=== PATIENT | male | born 1940 | race Caucasian/White ===

== ENCOUNTER → 2018-06-26 11:58 | Outpatient (CLI) | payer MEDICARE, BC, SELFPAY ==
[2018-06-26 14:02] LABS: Prostate Specific Ag, Diagnost 19.07 ng/mL (0.0-4.0)
== END ==
PROVIDERS: Visit Provider Urology
DX: R97.20 Elevated prostate specific antigen [PSA] (principal)
CPT/HCPCS: 36415; 84153

== ENCOUNTER → 2021-04-07 08:30 | Outpatient (CLI) | payer MEDICARE, BC, SELFPAY ==
[2021-04-07 10:29] LABS: Chloride 104 mmol/L (98-107); Sodium 139 mmol/L (136-145)
[2021-04-07 10:30] LABS: Potassium 5.5 mmoL/L (3.5-5.1)
[2021-04-07 10:32] LABS: Alanine Aminotransferase 11 U/L (12-78); Alkaline Phosphatase 71 U/L (38-126); Anion Gap 12.5 mEq/L (5-15); Aspartate Amino Transferase 31 U/L (17-59); Bilirubin,Total 1.1 mg/dl (0.2-1.3); Blood Urea Nitrogen 10 mg/dl (9-20); Carbon Dioxide 28 mmol/L (22.0-30.0); Cholesterol 169 mg/dl (140-200); Estimated Glomerular Filt Rate 81 ml/min (>60); GFR (African American) 98 ML/MIN (>60); Triglycerides 90 mg/dl (30-150); VLDL Cholesterol 18 mg/dL (0-40)
[2021-04-07 10:33] LABS: Albumin Level 4.4 g/dl (3.5-5.0); Albumin/Globulin Ratio 1.6 (1.1-1.8); Calcium 10.3 mg/dl (8.4-10.2); Chol/HDL Ratio 3.2 (1-3.5); Globulin 2.8 g/dL (1.3-3.2); Glucose 113 mg/dl (74-100); HDL Cholesterol 53 mg/dl (40-60); Total Protein,Serum 7.2 g/dl (6.3-8.2)
[2021-04-07 10:44] LABS: Direct LDL Cholesterol 94.51 mg/dL (100-129)
== END ==
PROVIDERS: Visit Provider Family Medicine
DX: I10 Essential (primary) hypertension (principal); E78.5 Hyperlipidemia, unspecified
CPT/HCPCS: 36415; 80053; 80061

== ENCOUNTER → 2022-01-26 12:51 | Outpatient (CLI) | payer MEDICARE, BC, SELFPAY ==
[2022-01-26 15:46] LABS: Prostate Specific Ag, Diagnost 6.56 ng/ml (0.0-4.0)
== END ==
PROVIDERS: PCP Family Medicine; Visit Provider Urology
DX: R97.20 Elevated prostate specific antigen [PSA] (principal)
CPT/HCPCS: 36415; 84153

== ENCOUNTER 2024-08-19 20:20 | Inpatient (IN) | payer MEDICARE, BC, SELFPAY ==
[2024-08-19 20:18] VITALS: BP 171/87; PULSE 61; RESP 14; TEMP 36.8; O2SAT 98; BMI 29.9
--- NOTE | 2024-08-19 20:19 | ED_ITS ---
<Statement entered by Matt Tinoco MD - 08/19/24 23:32> I was consulted by the FAVIAN, and we discussed the complexity of the problems being addressed. I approved the treatment and management plan for this patient's care in the emergency department, thus performing a substantive portion of the medical decision making. Matt Tinoco MD, AAMIR, FACEP Discharge Plan Disposition Patient Disposition: Admitted Condition: Good Prescriptions Prescriptions: No Action lisinopril 2.5 mg tablet 2.5 mg PO DAILY aspirin 81 mg tablet,chewable 81 mg PO DAILY metoprolol tartrate 25 mg tablet 25 mg PO BID simvastatin 20 mg tablet 20 mg PO DAILY lansoprazole 30 mg capsule,delayed release(DR/EC) 30 mg PO Referrals Follow up/Referrals: Kendall West MD [Primary Care Provider] - See instructions Clinical Impressions Clinical Impression: Fracture of hip Qualifiers: Encounter type: initial encounter Fracture type: closed Laterality: left Q ualified Code(s): S72.002A - Fracture of unspecified part of neck of left femur, initial encounter for closed fracture Print Language Print Language: O[place]i Discharge ED Provider: Matt Tinoco General Adult HPI General Chief complaint: Extremity Injury, Lower Stated complaint: left hip pain Time Seen by Provider: 08/19/24 20:22 History of Present Illness HPI narrative: Patient presents for evaluation after a fall. Patient states he was backing out of his kitchen and accidentally tripped falling backwards. He ended up in a sitting position however on the way down hit his brick hearth with his head on the left side posterior to the ear. He did not lose consciousness however when he fell he felt sharp pain at the left hip and was unable to get up from the ground. Ultimately EMS was called. He denies currently any headache nausea vomiting change in mental status or awareness blurred vision neck pain back pain. He denies any chest pain shortness of breath fever chills hemoptysis hematochezia melena nausea vomiting or diarrhea Related Data Home Medications ?Medication ?Instructions ?Recorded ?Confirmed aspirin 81 mg chewable tablet 81 mg PO DAILY 06/26/18 02/02/22 lisinopril 2.5 mg tablet 2.5 mg PO DAILY 06/26/18 02/02/22 metoprolol tartrate 25 mg tablet 25 mg PO BID 06/26/18 02/02/22 lansoprazole 30 mg capsule,delayed 30 mg PO 02/02/22 02/02/22 release simvastatin 20 mg tablet 20 mg PO DAILY 02/02/22 02/02/22 Allergies Allergy/AdvReac Type Severity Reaction Status Date / Time INGREDIENT: NO KNOWN - NO Allergy Unknown Uncoded 02/02/22 14:22 KNOWN DRUG ALLERGY [facility] Disclaimer: The information contained in this section may have been updated after the patient was seen, as this information can be updated by other users. Social History Smoking Status: Former smoker alcohol intake: never substance use type: denies use current occupational status: retired Travel in the last 8 weeks: None household members: spouse housing: house Have you lived/traveled outside [place] in past 30 days?: No Contact w/someone who lives/traveled outside US past 30 days?: No Exposure to someone with infectious disease in past 14 days?: No Do you have a fever (greater than 100.4 F or 38 C)?: No Have you tested positive for COVID-19: No Exposed to someone with COVID-19 in past 14 days?: No Do you have a sore throat?: No Do you have a cough?: No Do you have any weakness?: No Do you have any diarrhea?: No Are you experiencing any unusual bleeding?: No Do you have any muscle aches/pain?: No Do you have any abdominal pain?: No Are you experiencing loss of taste or smell?: No Other Medical History Have you received the Pneumonia Vaccine: Yes ROS Obtained: Yes Systems reviewed as appropriate & no additional complaints except as documented Physical Exam General General appearance: alert and in no apparent distress Head Head exam: atraumatic and normal inspection Eye Eye exam: Present normal appearance, PERRL and EOMI ENT ENT exam: Present normal exam, normal oropharynx and mucous membranes moist Neck Neck exam: Present normal inspection, full ROM and trachea midline; Absent lymphadenopathy Chest Chest inspection: Present normal inspection and symmetric chest wall rise Respiratory Respiratory exam: Present normal lung sounds bilaterally Cardiovascular Cardiovascular exam: Present regular rate Abdominal Exam Abdominal exam: Present soft and normal bowel sounds; Absent tenderness, guarding or rebound Extremities Exam Extremities exam: Present normal inspection and full ROM Neurological Exam Neurological exam: Present alert and oriented X3 Psychiatric Psychiatric exam: Present normal affect and normal mood Skin Skin exam: Present warm, dry and normal color Lymphatic Lymphatic Findings: no adenopathy Medical Decision Making Medical Records Medical records reviewed: Yes I reviewed the patient's medical records. Screening: Per USPSTF and CDC recommendations, given the prevalence of disease in our region, it is our hospital?s policy to screen for HIV and viral Hepatitis for all patients aged 18 and over and those with ongoing risk factors. Rony Inquiry Pt receiving controlled substance: No Vital Signs: 08/19/24 20:18 08/19/24 20:22 Temperature 98.3 F Temperature Source Oral Pulse Rate [Left Dorsalis Pedis] 62 Pulse Rate [Left Radial] 61 Respiratory Rate 14 Blood Pressure [Right Arm] 171/87 H Blood Pressure Mean [Right Arm] 115 Blood Pressure Position [Right Arm] Supine 02 Sat by Pulse Oximetry 98 Oxygen Delivery Method Room Air Lab Data Lab results reviewed: Yes I reviewed the patient's lab results. Lab Results 08/19/24 20:33: WBC 9.6, RBC 4.34 L, Hgb 12.7 L, Hct 38.6 L, MCV 88.9, MCH 29.3, MCHC 32.9, RDW 12.7, Plt Count 371, MPV 9.1, Neut % (Auto) 66.4, Lymph % (Auto) 23.8, [place] % (Auto) 5.4, Eos % (Auto) 3.4, Baso % (Auto) 0.6, Neut # (Auto) 6.4, Lymph # (Auto) 2.3, [place] # (Auto) 0.5, Eos # (Auto) 0.3, Baso # (Auto) 0.1, PT 10.9, INR 0.97, Sodium 140, Potassium 4.1, Chloride 109 H, Carbon Dioxide 23, Anion Gap 12.1, BUN 14, Creatinine 0.90, Estimated Creat Clear 65, Estimated GFR 81, Est GFR ( Amer) 98, Glucose 113 H, Calcium 8.6, Total Bilirubin 0.5, AST 28, ALT 20, Alkaline Phosphatase 108, Total Protein 6.8, Albumin 3.6, Globulin 3.2, Albumin/Globulin Ratio 1.1 08/19/24 20:33 08/19/24 20:33 Orders (Tests/Meds): ED MEDICATIONS Generic Name Dose Route Start Last Admin Trade Name Freq PRN Reason Stop Dose Admin Acetaminophen 650 mg 08/19/24 21:40 Acetaminophen 325mg Tab PO 09/18/24 21:39 Q4HP PRN Fever or Mild Pain (1-3) Discontinued Medications Generic Name Dose Route Start Last Admin Trade Name Freq PRN Reason Stop Dose Admin Acetaminophen 1,000 mg 08/19/24 20:20 08/19/24 20:59 Acetaminophen 500mg Tab PO 08/19/24 20:21 1,000 mg ONCE ONE Administration Oxycodone HCl 5 mg 08/19/24 21:23 08/19/24 21:38 Oxycodone 5mg Immediate Release Tablet PO 08/19/24 21:24 5 mg ONCE ONE Administration ORDERS Category Date Time Status CT bony pelvis Stat Cat Scan 08/19/24 20:[address] cervical spine wo con Stat Cat Scan 08/19/24 20:[address] head/brain wo con Stat Cat Scan 08/19/24 20:21 Completed Consult to Case Management [CONS] Routine Cons 08/19/24 21:40 Active Femur XR left 2 views [XR femur LT 2V] Stat Exams 08/19/24 20:20 Completed XR chest portable Stat Exams 08/19/24 20:20 Completed Basic Metabolic Panel [facility] 08/20/24 06:00 Ordered Basic Metabolic Panel [facility] 08/21/24 06:00 Ordered Basic Metabolic Panel [facility] 08/22/24 06:00 Ordered Basic Metabolic Panel [facility] 08/23/24 06:00 Ordered Basic Metabolic Panel [facility] 08/24/24 06:00 Ordered CBC w/Auto Diff [Complete Blood Count Auto Diff] Stat Lab 08/19/24 20:33 Completed CMP [Comprehensive Metabolic Panel] Stat Lab 08/19/24 20:33 Completed Complete Blood Count Auto Diff [facility] 08/20/24 06:00 Ordered Complete Blood Count Auto Diff [facility] 08/21/24 06:00 Ordered Complete Blood Count Auto Diff [facility] 08/22/24 06:00 Ordered Complete Blood Count Auto Diff [facility] 08/23/24 06:00 Ordered Complete Blood Count Auto Diff [facility] 08/24/24 06:00 Ordered INR [Prothrombin Time INR] Stat Lab 08/19/24 20:33 Completed Magnesium [facility] 08/20/24 06:00 Ordered Phosphorous [facility] 08/20/24 06:00 Ordered Medical Decision Narrative: In summary patient is a 83-year-old male who presents to the emergency department for evaluation of accidental ground-level fall. Patient is currently hemodynamically stable with a blood pressure of 171/87 pulse 61 respiratory rate is 14 O2 sats 98% on room air normal sinus rhythm on the bedside monitor upon arrival, afebrile at 98.3. Physical exam is remarkable for an abrasion at the mastoid behind the left ear but no palpable bony deformity. External auditory canals normal tympanic is normal with no fluid or blood, patient has no cervical spine tenderness, however he remains in a c-collar. Pupils equal round reactive to light [place] Coma Score 15 patient's awake alert and oriented person place and circumstance cranial nerves II through XII intact grossly to exam presents clear to go bilaterally to the base without a tissue sounds abdomen soft nontender no rebound or guarding or rigidity. Patient has an externally rotated and foreshortened left lower extremity however he is neurovascularly intact distally with palpable pulses that are marked with an ink pen. I did not perform range of testing due to his obvious injury. The remainder of his unaffected labs are intact grossly to exam with full range of motion. Differential diagnosis includes skull fracture versus C-spine injury versus intracranial bleed versus pelvic fracture versus femur fracture etc. Initial workup will be conducted with CT scans of the head neck and pelvis without contrast and plain film of the chest and femur. Patient is only on aspirin and no blood thinners.. Initial interventions include Tylenol and oxycodone for now. Initial workup reviewed by me and my informal interpretation of his imaging shows only the a comminuted left femur fracture as well as a pubic rami fracture on the left prior to radiology read. Hematologic labs are nonactionable. I had indirect discussion with orthopedic surgery and he is agreeable for consultation and operative repair likely on Saturday. Given that I had a direct discussion with hospital medicine that he has been accepted for admission and ongoing management care. Critical Care Critical Care Time Critical Care Time: No
--- NOTE | 2024-08-19 20:20 | XR_ITS ---
PROCEDURE INFORMATION: Exam: XR Left Femur Exam date and time: 08/19/2024 8:35 PM Age: 83 years old Clinical indication: Injury or trauma; Fall; Blunt trauma; Hip; Left; Additional info: Fall left hip injury TECHNIQUE: Imaging protocol: Radiologic exam of the left femur. Views: 2 views. COMPARISON: No relevant prior studies available. FINDINGS: Bones/joints: Acute comminuted fracture of the proximal femoral shaft with extension to the lesser trochanter. Medial displacement of the lesser trochanter fracture fragment. Significant impaction. Mild varus angulation. Soft tissues: Unremarkable. Vasculature: Vascular calcifications. IMPRESSION: Acute comminuted and impacted fracture of the left proximal femur with extension to the lesser trochanter.
--- NOTE | 2024-08-19 20:20 | XR_ITS ---
PROCEDURE INFORMATION: Exam: XR Chest Exam date and time: 08/19/2024 8:35 PM Age: 83 years old Clinical indication: Injury or trauma; Fall; Blunt trauma (contusions or hematomas) TECHNIQUE: Imaging protocol: Radiologic exam of the chest. Views: 1 view. COMPARISON: No relevant prior studies available. FINDINGS: Lungs: No consolidation. Basal reticulation. Pleural spaces: No pleural effusion. No pneumothorax. Heart/Mediastinum: Normal cardiac silhouette. Deviation of the azygoesophageal recess. Bones/joints: No acute osseous abnormality. IMPRESSION: Deviation of the azygoesophageal recess suspicious for moderate-large hiatal hernia although mediastinal mass not excluded. Recommend confirmation with nonemergent CT chest.
--- NOTE | 2024-08-19 20:21 | CT_ITS ---
PROCEDURE INFORMATION: Exam: CT Head Without Contrast Exam date and time: 08/19/2024 8:43 PM Age: 83 years old Clinical indication: Injury or trauma; Fall; Blunt trauma (contusions or hematomas); Without loss of consciousness; Additional info: Fall hit left head no loc TECHNIQUE: Imaging protocol: Computed tomography of the head without contrast. Radiation optimization: All CT scans at this facility use at least one of these dose optimization techniques: automated exposure control; mA and/or kV adjustment per patient size (includes targeted exams where dose is matched to clinical indication); or iterative reconstruction. COMPARISON: CT HEAD/BRAIN WO CON 08/19/2024 8:43 PM FINDINGS: Brain: No hemorrhage. Underlying periventricular white matter changes and parenchymal cortical volume loss. No mass effect. Cerebral ventricles: No ventriculomegaly. Paranasal sinuses: Visualized sinuses are unremarkable. No fluid levels. Mastoid air cells: Visualized mastoid air cells are well aerated. Bones: Unremarkable. No acute fracture. Soft tissues: Unremarkable. IMPRESSION: No acute intracranial abnormality.
--- NOTE | 2024-08-19 20:21 | CT_ITS ---
PROCEDURE INFORMATION: Exam: CT Cervical Spine Without Contrast Exam date and time: 08/19/2024 8:45 PM Age: 83 years old Clinical indication: Injury or trauma; Fall; Blunt trauma; Additional info: Fall hit left head no loc TECHNIQUE: Imaging protocol: Computed tomography of the cervical spine without contrast. Radiation optimization: All CT scans at this facility use at least one of these dose optimization techniques: automated exposure control; mA and/or kV adjustment per patient size (includes targeted exams where dose is matched to clinical indication); or iterative reconstruction. COMPARISON: CT HEAD/BRAIN WO CON 08/19/2024 8:43 PM FINDINGS: Bones: No acute fracture. Likely chronic C4 on C5 mild anterolisthesis. Multilevel degenerative disc and joint space changes. Vertebral body heights grossly preserved. Osteopenia. Lungs: Unremarkable. Soft tissues: Unremarkable. IMPRESSION: No acute findings.
--- NOTE | 2024-08-19 20:21 | CT_ITS ---
PROCEDURE INFORMATION: Exam: CT Pelvis Without Contrast, Skeleton Exam date and time: 08/19/2024 8:48 PM Age: 83 years old Clinical indication: Injury or trauma; Fall; Blunt trauma (contusions or hematomas); Left; Hip; Additional info: Fall left hip injury TECHNIQUE: Imaging protocol: Computed tomography of the pelvis without contrast. Exam focused on the skeleton. Radiation optimization: All CT scans at this facility use at least one of these dose optimization techniques: automated exposure control; mA and/or kV adjustment per patient size (includes targeted exams where dose is matched to clinical indication); or iterative reconstruction. COMPARISON: CR XR FEMUR LT 2V 08/19/2024 8:35 PM FINDINGS: Intestine: Colonic diverticulosis. Intraperitoneal space: Partially visualized large cyst in the left hemiabdomen measuring 7.3 cm. Vasculature: Prominent atherosclerotic calcifications in the pelvis.. Reproductive: Prostatic calcifications. Bones/joints: Comminuted fracture of the left proximal femur with a butterfly fracture involving the lesser trochanter which is medially displaced. Suspect distal femur is rotated. Significant fracture impaction with approximately 4.5 cm of fracture overlap. Acute minimally displaced fracture left inferior pubic ramus. Soft tissues: Thickening and edema of the left iliacus muscle near the hip.. IMPRESSION: 1. Comminuted and impacted fracture of the left proximal femoral shaft with extension to the lesser trochanter. 2. Acute minimally displaced fracture of the left inferior pubic ramus. 3. Partially visualized large cyst in the left hemiabdomen measuring 7.3 cm, presumably arising from the left lower renal pole. COMMENTS: Consistent with the [employer]'s Incidental Findings Committee white paper (J Am Jesus Radiol 2018): Any incidental renal lesion less than 1 cm or classified as too small to characterize, or any incidental cystic renal lesion characterized as simple-appearing, is likely benign. No follow-up imaging is recommended for these lesions per consensus recommendations based on imaging criteria.
[2024-08-19 20:22] VITALS: PULSE 62
--- NOTE | 2024-08-19 20:34 | PC.NURSE ---
blood collected and sent to the lab, pt taken to radiology at this time.
[2024-08-19 20:39] LABS: Basophils # 0.1 K/mm3 (0-0.2); Basophils % 0.6 % (0.1-2.0); Eosinophils # 0.3 K/mm3 (0.0-0.4); Eosinophils % 3.4 % (0.1-12.0); Hematocrit 38.6 % (42.0-52.0); Hemoglobin 12.7 g/dL (14.1-18.0); Lymphocytes # 2.3 K/mm3 (0.7-4.5); Lymphocytes % 23.8 % (10-50); Mean Corpuscular HGB Conc 32.9 g/dL (31.8-35.4); Mean Corpuscular Hemoglobin 29.3 pg (27.0-31.2); Mean Corpuscular Volume 88.9 fl (80-94); Mean Platelet Volume 9.1 fl (7.4-10.4); Monocytes # 0.5 K/mm3 (0.1-1.0); Monocytes % 5.4 % (1.7-9.3); Neutrophils # 6.4 K/mm3 (1.8-7.8); Neutrophils % 66.4 % (37.0-80.0); Nucleated Red Blood Cells # 0 10^3/uL; Nucleated Red Blood Cells % 0 %; Platelet Count 371 K/mm3 (142-424); Red Blood Count 4.34 M/mm3 (4.60-6.20); Red Cell Distribution Width 12.7 % (11.5-17.5); Red Cell Distribution Width-SD 41.5 fL; White Blood Count 9.6 K/mm3 (4.8-10.8)
[2024-08-19 20:46] LABS: Albumin Level 3.6 g/dl (3.5-5.0); Chloride 109 mmol/L (98-107); Potassium 4.1 mmoL/L (3.5-5.1); Sodium 140 mmol/L (136-145)
[2024-08-19 20:48] LABS: Blood Urea Nitrogen 14 mg/dl (9-20); Creatinine Clearance Estimated 65 mL/min (50-200); Estimated Glomerular Filt Rate 81 ml/min (>60); GFR (African American) 98 ML/MIN (>60)
[2024-08-19 20:49] LABS: Alanine Aminotransferase 20 U/L (12-78); Albumin/Globulin Ratio 1.1 (1.1-1.8); Alkaline Phosphatase 108 U/L (38-126); Anion Gap 12.1 mEq/L (5-15); Aspartate Amino Transferase 28 U/L (17-59); Bilirubin,Total 0.5 mg/dl (0.2-1.3); Calcium 8.6 mg/dl (8.4-10.2); Carbon Dioxide 23 mmol/L (22.0-30.0); Globulin 3.2 g/dL (1.3-3.2); Glucose 113 mg/dl (74-100); Total Protein,Serum 6.8 g/dl (6.3-8.2)
[2024-08-19 20:53] LABS: INR 0.97 (0.9-1.1); Prothrombin Time 10.9 seconds (10.1-12.5)
[2024-08-19] MEDS: ACETAMINOPHEN 500MG TAB 1000 MG PO (20:59)
[2024-08-19] MEDS: OXYCODONE 5MG IMMEDIATE RELEASE TABLET 5 MG PO (21:38)
--- NOTE | 2024-08-19 21:46 | P.HP_ITS ---
<Statement entered by Frank Quinones MD - 08/20/24 15:31> Rounded on patient after nurse practitioner. Personally examined and interviewed patient. Agree with exam findings and care plan as documented. History of Present Illness *Admission Date: 08/19/24 *Reason for visit:: Fall *History of present illness: An 83-year-old male past medical history of hypertension, BPH presents to the emergency department for evaluation of an accidental ground-level fall. He rep orts the fall occurred today, resulting in left lower extremity pain and inability to ambulate. He is on aspirin but no anticoagulants. The history was obtained through interactive discussion with the patient, who is deemed reliable. His only anticoagulation is 81 mg aspirin daily. On examination, the patient is hemodynamically stable with blood pressure 171/87, pulse 61, respiratory rate 14, oxygen saturation 98% on room air, afebrile (98.3), and in normal sinus rhythm on the bedside monitor. Physical exam reveals an abrasion behind the left mastoid without bony deformity, normal external auditory canals and tympanic membranes, no cervical spine tenderness, pupils equal and reactive, Bertrand Coma Scale 15, awake, alert, oriented, with intact cranial nerves II?XII. Lungs are clear bilaterally, abdomen soft and nontender without rebound, guarding, or rigidity. The left lower extremity is externally rotated and foreshortened, neurovascularly intact distally with palpable pulses marked by ink pen; range of motion testing was avoided due to obvious injury. The remainder of the exam shows intact limbs with full range of motion. Diagnostic workup includes labs, CT scans of head, neck, and pelvis without contrast, and plain films of chest and femur. Labs show mild anemia (hemoglobin 12.7, hematocrit 38.6), normal WBC (9.6), creatinine (0.9), GFR (81), normal electrolytes (sodium 140, potassium 4.1), slightly elevated glucose (113), and normal PT/INR (0.97). CT head and neck are negative for acute processes. CT pelvis and femur X-ray radiology read confirms a comminuted, impacted left proximal femoral shaft fracture extending to the lesser trochanter, a minimally displaced left inferior pubic rami fracture, and a 7.3 cm cyst in the left hemiabdomen, likely from the left lower renal pole. Chest X-ray is unremarkable. CT head and neck shows no acute process Treatments implemented in the emergency department include acetaminophen (Tylenol, dose not specified, assumed 650 mg oral) and oxycodone (dose not specified, assumed 5 mg oral) for pain. The patient remains in a C-collar pending clearance. Orthopedic surgery was consulted and agreed to operative repair, likely Saturday. Hospital medicine agrees to accept the patient for admission in stable condition for ongoing management. [facility] Disclaimer: The information contained in this section may have been updated after the patient was seen, as this information can be updated by other users. Social History Smoking Status: Former smoker alcohol intake: never substance use type: denies use current occupational status: retired Travel in the last 8 weeks: None household members: spouse housing: house Have you lived/traveled outside US in past 30 days?: No Contact w/someone who lives/traveled outside US past 30 days?: No Exposure to someone with infectious disease in past 14 days?: No Do you have a fever (greater than 100.4 F or 38 C)?: No Have you tested positive for COVID-19: No Exposed to someone with COVID-19 in past 14 days?: No Do you have a sore throat?: No Do you have a cough?: No Do you have any weakness?: No Do you have any diarrhea?: No Are you experiencing any unusual bleeding?: No Do you have any muscle aches/pain?: No Do you have any abdominal pain?: No Are you experiencing loss of taste or smell?: No Other Medical History Have you received the Pneumonia Vaccine: Yes Review of Systems Review of Systems Review of systems (narrative): 13 point review of system negative except as listed in HPI Meds Home Medications and Allergies Home Medications ?Medication ?Instructions ?Recorded ?Confirmed ?Type aspirin 81 mg chewable tablet 81 mg PO DAILY 06/26/18 08/20/24 History metoprolol tartrate 25 mg tablet 25 mg PO DAILY 06/26/18 08/20/24 History lansoprazole 30 mg capsule,delayed 30 mg PO DAILY 02/02/22 08/20/24 History release New Prescriptions to Start Prescriptions: Allergies Allergy/AdvReac Type Severity Reaction Status Date / Time INGREDIENT: NO KNOWN - NO Allergy Unknown Uncoded 02/02/22 14:22 KNOWN DRUG ALLERGY Exam Data for Last 24 hours Vital signs and Labs for Last 24 Hours: Temp Pulse Resp BP Pulse Ox O2 Del Method 98.3 F 62 14 171/87 H 98 Room Air 08/19/24 20:18 08/19/24 20:22 08/19/24 20:18 08/19/24 20:18 08/19/24 20:18 08/19/24 20:18 Laboratory Results - last 24 hr 08/19/24 20:33: WBC 9.6, RBC 4.34 L, Hgb 12.7 L, Hct 38.6 L, MCV 88.9, MCH 29.3, MCHC 32.9, RDW 12.7, Plt Count 371, MPV 9.1, Neut % (Auto) 66.4, Lymph % (Auto) 23.8, [place] % (Auto) 5.4, Eos % (Auto) 3.4, Baso % (Auto) 0.6, Neut # (Auto) 6.4, Lymph # (Auto) 2.3, [place] # (Auto) 0.5, Eos # (Auto) 0.3, Baso # (Auto) 0.1, PT 10.9, INR 0.97, Sodium 140, Potassium 4.1, Chloride 109 H, Carbon Dioxide 23, Anion Gap 12.1, BUN 14, Creatinine 0.90, Estimated Creat Clear 65, Estimated GFR 81, Est GFR ( Amer) 98, Glucose 113 H, Calcium 8.6, Total Bilirubin 0.5, AST 28, ALT 20, Alkaline Phosphatase 108, Total Protein 6.8, Albumin 3.6, Globulin 3.2, Albumin/Globulin Ratio 1.1 I & O for Last 24 hours: Intake & Output 08/16/24 08/17/24 08/18/24 08/19/24 23:59 23:59 23:59 23:59 Weight 81.647 kg Constitutional Constitutional: no acute distress *Routine HEENT Exam Head: Present normocephalic Eye: Present EOMI and PERRL ENT: Present mucous membranes moist *Routine Neck Exam Neck: Present supple; Absent lymphadenopathy *Routine Respiratory Exam Respiratory: Present CTA bilaterally *Routine Cardiovascular Exam Cardiovascular: Present RRR *Routine Abdominal Exam Abdominal: Present soft and normoactive bowel sounds; Absent tenderness *Routine Rectal Exam Rectal:: deferred *Routine Genitalia Exam Genitalia:: deferred *Routine Extremities Exam Extremities: Absent cyanosis, clubbing or edema *Routine Skin Exam Skin: Present warm; Absent rash *Routine Neurological Exam Neurological: Present alert and oriented X3 Assessment and Plan *Assessment and plan (1) Fracture of hip: Status: Acute Qualifiers: Encounter type: initial encounter Fracture type: closed Laterality: left Qualified Code(s): S72.002A - Fracture of unspecified part of neck of left femur, initial encounter for closed fracture Category: Medical Code(s): S72.009A - Fracture of unspecified part of neck of unspecified femur, initial encounter for closed fracture (2) Elevated PSA: Status: Acute Category: Medical Code(s): R97.20 - Elevated prostate specific antigen [PSA] Plan * Comminuted Left Proximal Femur Fracture: Comminuted, impacted left femoral shaft fracture extending to lesser trochanter, with externally rotated, foreshortened left leg, neurovascularly intact, in an 83-year-old male post- fall. * Continue oxycodone 5 mg oral every 4?6 hours as needed for moderate pain; add acetaminophen 650 mg oral every 6 hours scheduled x 4 doses. * Complains of significant pain and inability to stay immobilized despite medication. 2 mg IV morphine every 4 as needed for severe pain 500 mg Robaxin 3 times daily added. De-escalate IV morphine as able * Maintain immobilization with left leg splint; avoid weight-bearing until orthopedic evaluation. * Consult orthopedic surgery for operative repair (planned Saturday); obtain preoperative clearance (e.g., EKG, chest X-ray reviewed). * Monitor neurovascular status (pulses, sensation); notify orthopedics if compromised. * Admit to medical-surgical floor for pain management and surgical planning. * Recheck hemoglobin in 12 hours to monitor for occult bleeding (current 12.7). * Left Inferior Pubic Rami Fracture: Minimally displaced left pubic rami fracture, contributing to pain and immobility, no surgical intervention typically required. * Manage pain as above with oxycodone and acetaminophen. * Encourage [id number] on left side; consult physical therapy for mobility assistance post-orthopedic repair. * Monitor for worsening pelvic pain or new symptoms every 4 hours; repeat pe lvic X-ray in 24 hours if pain escalates. * Coordinate with orthopedics for outpatient follow-up to assess healing (4?6 weeks). * Left Renal Cyst (Incidental): 7.3 cm cyst, likely arising from left lower renal pole, asymptomatic, found on CT pelvis, in a patient with normal renal function (creatinine 0.9, GFR 81). * Consult urology for outpatient evaluation of cyst (e.g., ultrasound or MRI to assess complexity, Bosniak classification). * Monitor for new flank pain, hematuria, or fever every 8 hours; order urinalysis if symptoms arise. * No immediate intervention unless cyst causes obstruction or infection; document for follow-up. * Mild Anemia: Hemoglobin 12.7, hematocrit 38.6, likely chronic or post- traumatic, no active bleeding noted, in a patient on aspirin. * Recheck CBC in 24 hours to monitor anemia; consult hematology if hemoglobin falls below 10.0 or symptoms (fatigue, dyspnea) worsen. * Continue aspirin ( 81 mg daily) unless active bleeding develops; monitor for melena or hematemesis every 8 hours. * Order iron studies and ferritin if anemia progresses to assess for deficiency vs. chronic disease. * Hypertension: BP 171/87, likely reactive to pain or chronic, no end-organ damage (negative head CT, normal EKG). * Monitor BP every 2 hours, targeting <140/90; hold home antihypertensives (not specified) until pain controlled and BP <150 systolic to avoid hypotension post-surgery. * Verify home antihypertensive regimen metoprolol * Recheck electrolytes in 24 hours (sodium 140, potassium 4.1) to monitor for pain-related stress effects. Additional Orders: * Admit to medical-surgical floor for fracture management and orthopedic consultation. * Consult physical therapy for mobility planning post-surgery. * Educate patient/family on fracture care, pain management, and surgical plan.
--- NOTE | 2024-08-19 21:55 | PC.NURSE ---
report called to Elroy Elizalde RN
--- NOTE | 2024-08-19 22:10 | PC.NURSE ---
valium pulled per ramón medic 2.5mg given with the rest wittnessed waste
[2024-08-19 22:11] VITALS: BP 184/118; PULSE 78; RESP 99; TEMP 37
[2024-08-19] MEDS: diazePAM 10MG/2ML SYRINGE 2.5 MG IV (22:12)
--- NOTE | 2024-08-19 22:25 | PC.NURSE ---
Patient arrived to floor via stretcher from ED at 22:16.
[2024-08-19 22:36] VITALS: BP 143/75; PULSE 66; RESP 20; TEMP 36.7; O2SAT 95; BMI 28.8
[2024-08-19] MEDS: MORPHINE 2MG/ML SYRINGE 2 MG IV (23:08)
[2024-08-19] MEDS: LACTATED RINGERS 1000ML 1,000 ML 50 ML IV (23:16)
[2024-08-19 23:42] VITALS: BP 145/65; PULSE 61; RESP 18; TEMP 36.7; O2SAT 96
[2024-08-20] MEDS: diphenhydrAMINE 50MG CAPSULE 50 MG PO (01:49)
[2024-08-20] MEDS: METHOCARBAMOL 500MG TABLET 500 MG PO ×4 (01:49→21:02)
[2024-08-20] MEDS: ACETAMINOPHEN 325MG TAB 650 MG PO ×6 (01:49→21:02)
[2024-08-20 04:00] VITALS: BP 154/86; PULSE 64; RESP 17; TEMP 36.5; O2SAT 97; BMI 28.8
[2024-08-20] MEDS: MORPHINE 2MG/ML SYRINGE 2 MG IV ×4 (04:48→21:11)
[2024-08-20 07:42] LABS: Basophils % 0.4 % (0.1-2.0); Eosinophils % 0.1 % (0.1-12.0); Hemoglobin 12.1 g/dL (14.1-18.0); Lymphocytes # 1.3 K/mm3 (0.7-4.5); Lymphocytes % 15.7 % (10-50); Mean Corpuscular HGB Conc 33.6 g/dL (31.8-35.4); Mean Corpuscular Hemoglobin 30.2 pg (27.0-31.2); Mean Corpuscular Volume 89.8 fl (80-94); Mean Platelet Volume 9.3 fl (7.4-10.4); Monocytes # 0.6 K/mm3 (0.1-1.0); Monocytes % 6.7 % (1.7-9.3); Neutrophils # 6.5 K/mm3 (1.8-7.8); Neutrophils % 76.7 % (37.0-80.0); Nucleated Red Blood Cells # 0 10^3/uL; Nucleated Red Blood Cells % 0 %; Platelet Count 347 K/mm3 (142-424); Red Blood Count 4.01 M/mm3 (4.60-6.20); Red Cell Distribution Width 12.8 % (11.5-17.5); Red Cell Distribution Width-SD 42.2 fL; White Blood Count 8.4 K/mm3 (4.8-10.8)
[2024-08-20 07:52] LABS: Chloride 109 mmol/L (98-107); Sodium 141 mmol/L (136-145)
[2024-08-20 07:53] LABS: Potassium 4.4 mmoL/L (3.5-5.1)
[2024-08-20 07:55] LABS: Anion Gap 10.4 mEq/L (5-15); Blood Urea Nitrogen 15 mg/dl (9-20); Carbon Dioxide 26 mmol/L (22.0-30.0); Creatinine Clearance Estimated 62 mL/min (50-200); Estimated Glomerular Filt Rate 81 ml/min (>60); GFR (African American) 98 ML/MIN (>60)
[2024-08-20 07:56] LABS: Calcium 8.4 mg/dl (8.4-10.2); Glucose 116 mg/dl (74-100); Magnesium 1.9 mg/dl (1.6-2.3)
[2024-08-20 08:00] VITALS: BP 139/77; PULSE 57; RESP 16; TEMP 36.5; O2SAT 96
--- NOTE | 2024-08-20 08:03 | HMH.PHAINT1 ---
Pharmacy Intervention Comments: MEDICATION RECONCILIATION COMPLETED ON PATIENT USING EXTERNAL FILL HISTORY FROM PHARMACY. -MARY GRACE CHA, JACLYND
[2024-08-20] MEDS: ASPIRIN 81MG CHEWABLE TABLET 81 MG PO (08:13)
--- NOTE | 2024-08-20 12:12 | P.CONS_ITS ---
History of Present Illness *Admission Date: 08/19/24 *History of present illness: An 83-year-old male past medical history of hypertension, BPH presents to the emergency department for evaluation of an accidental ground-level fall. He reports the fall occurred today, resulting in left lower extremity pain and inability to ambulate. He is on aspirin but no anticoagulants. The history was obtained through interactive discussion with the patient, who is deemed reliable. His only anticoagulation is 81 mg aspirin daily. Patient suffered a left-sided intertrochanteric hip fracture with reverse obliquity orthopedics was consulted regarding definitive treatment options.. [facility] Disclaimer: The information contained in this section may have been updated after the patient was seen, as this information can be updated by other users. Medical History (Updated 08/20/24 @ 12:17 by Bennie Murcia DO) Hypertension Social History Smoking Status: Former smoker alcohol intake: never substance use type: denies use current occupational status: retired Travel in the last 8 weeks: None household members: spouse housing: house Have you lived/traveled outside US in past 30 days?: No Contact w/someone who lives/traveled outside US past 30 days?: No Exposure to someone with infectious disease in past 14 days?: No Do you have a fever (greater than 100.4 F or 38 C)?: No Have you tested positive for COVID-19: No Exposed to someone with COVID-19 in past 14 days?: No Do you have a sore throat?: No Do you have a cough?: No Do you have any weakness?: No Do you have any diarrhea?: No Are you experiencing any unusual bleeding?: No Do you have any muscle aches/pain?: No Do you have any abdominal pain?: No Are you experiencing loss of taste or smell?: No Meds Home Medications and Allergies Home Medications ?Medication ?Instructions ?Recorded ?Confirmed ?Type aspirin 81 mg chewable tablet 81 mg PO DAILY 06/26/18 08/20/24 History metoprolol tartrate 25 mg tablet 25 mg PO DAILY 06/26/18 08/20/24 History lansoprazole 30 mg capsule,delayed 30 mg PO DAILY 02/02/22 08/20/24 History release New Prescriptions to Start Prescriptions: Allergies Allergy/AdvReac Type Severity Reaction Status Date / Time No Known Allergies Allergy Unverified 08/20/24 07:18 Ortho Exam (Inpt) Vital signs and Labs for Last 24 Hours: Temp Pulse Resp BP Pulse Ox O2 Del Method 97.7 F 57 L 16 139/77 96 Room Air 08/20/24 08:00 08/20/24 08:00 08/20/24 08:00 08/20/24 08:00 08/20/24 08:00 08/20/24 11:00 Laboratory Results - last 24 hr 08/19/24 20:33: WBC 9.6, RBC 4.34 L, Hgb 12.7 L, Hct 38.6 L, MCV 88.9, MCH 29.3, MCHC 32.9, RDW 12.7, Plt Count 371, MPV 9.1, Neut % (Auto) 66.4, Lymph % (Auto) 23.8, [place] % (Auto) 5.4, Eos % (Auto) 3.4, Baso % (Auto) 0.6, Neut # (Auto) 6.4, Lymph # (Auto) 2.3, [place] # (Auto) 0.5, Eos # (Auto) 0.3, Baso # (Auto) 0.1, PT 10.9, INR 0.97, Sodium 140, Potassium 4.1, Chloride 109 H, Carbon Dioxide 23, Anion Gap 12.1, BUN 14, Creatinine 0.90, Estimated Creat Clear 65, Estimated GFR 81, Est GFR ( Amer) 98, Glucose 113 H, Calcium 8.6, Total Bilirubin 0.5, AST 28, ALT 20, Alkaline Phosphatase 108, Total Protein 6.8, Albumin 3.6, Globulin 3.2, Albumin/Globulin Ratio 1.1 08/20/24 07:23: WBC 8.4, RBC 4.01 L, Hgb 12.1 L, Hct 36.0 L, MCV 89.8, MCH 30.2, MCHC 33.6, RDW 12.8, Plt Count 347, MPV 9.3, Neut % (Auto) 76.7, Lymph % (Auto) 15.7, [place] % (Auto) 6.7, Eos % (Auto) 0.1, Baso % (Auto) 0.4, Neut # (Auto) 6.5, Lymph # (Auto) 1.3, [place] # (Auto) 0.6, Eos # (Auto) 0.0, Baso # (Auto) 0.0, Sodium 141, Potassium 4.4, Chloride 109 H, Carbon Dioxide 26, Anion Gap 10.4, BUN 15, Creatinine 0.90, Estimated Creat Clear 62, Estimated GFR 81, Est GFR ( Amer) 98, Glucose 116 H, Calcium 8.4, Phosphorus 3.0, Magnesium 1.9 I & O for Labs for Last 24 Hours: Intake & Output 08/17/24 08/18/24 08/19/24 08/20/24 23:59 23:59 23:59 23:59 Intake Total 485 / 485 Output Total 0 / 0 Balance 0 / 0 485 / 485 Weight 173 lb 4.8 oz 173 lb 4.8 oz Head: Present normocephalic and atraumatic Additional findings:: Left hip: Shortened mildly externally rotated tenderness with any attempt to move the hip. X-rays left hip show intertrochanteric hip fracture with reverse obliquity unstable fracture pattern Results Labs 08/20/24 07:23 08/20/24 07:23 Labs: Abnormal lab results 08/19/24 08/20/24 Range/Units 20:33 07:23 RBC 4.34 L 4.01 L (4.60-6.20) M/mm3 Hgb 12.7 L 12.1 L (14.1-18.0) g/dL Hct 38.6 L 36.0 L (42.0-52.0) % Chloride 109 H 109 H (98-107) mmol/L Glucose 113 H 116 H (74-100) mg/dl H & H 08/19/24 08/20/24 Range/Units 20:33 07:23 Hgb 12.7 L 12.1 L (14.1-18.0) g/dL Hct 38.6 L 36.0 L (42.0-52.0) % Coagulation 08/19/24 Range/Units 20:33 INR 0.97 (0.9-1.1) All other labs normal. Assessment and Plan *Assessment and plan (1) Closed intertrochanteric fracture of left hip: Status: Acute Qualifiers: Encounter type: initial encounter Fracture alignment: displaced Q ualified Code(s): S72.142A - Displaced intertrochanteric fracture of left femur, initial encounter for closed fracture Category: Medical Code(s): S72.142A - Displaced intertrochanteric fracture of left femur, initial encounter for closed fracture Plan I reviewed the x-ray findings with the patient and the hip fracture nature. He will require operative intervention. This will be done with a cephalomedullary nail to stabilize the hip fracture. He will be able to be weightbearing as pain allows after surgery will progress with physical therapy evaluation after surgery will likely need rehab placement following surgery. Plan on surgical intervention tomorrow. PROPOSED SURGERY: Cephalomedullary nailing left proximal femur the risks and benefits of the proposed surgery were discussed in depth with the patient. Potential complications including inherent risk of anesthesia, infection, neurovascular damage, DVT, and rare but real potential loss of limb or life were all reviewed. Patient voices understanding and seems to understand to my satisfaction and wishes to proceed with surgery. I gave them adequate time to ask any questions they have pertaining to this surgery and answered all of them to the best of my ability. I gave them no guarantees in regards to outcomes of this surgery.
--- NOTE | 2024-08-20 14:53 | P.PN_ITS ---
Subjective *Date: 08/20/24 *Time: 15:31 Interval history: Mild pain in left hip. Limited recollection of event. No urine output since admission, will place Stokes today. Denies any chest pain or shortness of breath. Medical Exam Vital signs and Labs for Last 24 Hours: Vital Signs Temp Pulse Pulse Pulse Resp BP BP 08/20/24 13:00 08/20/24 11:00 08/20/24 09:00 08/20/24 08:00 97.7 F 57 L 16 139/77 08/20/24 08:00 08/20/24 06:42 08/20/24 05:00 08/20/24 04:00 97.7 F 64 17 154/86 H 08/20/24 03:00 08/20/24 01:00 08/19/24 23:42 98.0 F 61 18 145/65 H 08/19/24 23:00 08/19/24 22:45 08/19/24 22:36 98.1 F 66 20 143/75 H 08/19/24 22:11 98.6 F 78 99 H 184/118 H 08/19/24 20:22 62 08/19/24 20:18 98.3 F 61 14 171/87 H Pulse Ox O2 Del Method 08/20/24 13:00 Room Air 08/20/24 11:00 Room Air 08/20/24 09:00 Room Air 08/20/24 08:00 96 Room Air 08/20/24 08:00 Room Air 08/20/24 06:42 Room Air 08/20/24 05:00 Room Air 08/20/24 04:00 97 Room Air 08/20/24 03:00 Room Air 08/20/24 01:00 Room Air 08/19/24 23:42 96 Room Air 08/19/24 23:00 Room Air 08/19/24 22:45 Room Air 08/19/24 22:36 95 Room Air 08/19/24 22:11 Room Air 08/19/24 20:22 08/19/24 20:18 98 Room Air Intake and Output 08/19/24 08/20/24 08/20/24 23:59 07:59 15:59 Intake Total 385 / 845 460 / 845 Output Total 0 / 0 Balance 0 / 0 385 / 845 460 / 845 Intake: Intake, Oral Amount 120 / 580 460 / 580 Intake, Total IV Amount 265 / 265 Lactated Ringers 1000ML 1,000 265 / 265 ml @ 50 mls/hr IV .Q20H ONE Rx# :[id number] Output: Output, Urine Amount 0 / 0 Other: Number of Unmeasured Voids 1 Weight 78.608 kg 78.608 kg Patient Weight 08/20/24 23:59 Weight 78.608 kg Laboratory Results - last 24 hr 08/19/24 20:33: WBC 9.6, RBC 4.34 L, Hgb 12.7 L, Hct 38.6 L, MCV 88.9, MCH 29.3, MCHC 32.9, RDW 12.7, Plt Count 371, MPV 9.1, Neut % (Auto) 66.4, Lymph % (Auto) 23.8, [place] % (Auto) 5.4, Eos % (Auto) 3.4, Baso % (Auto) 0.6, Neut # (Auto) 6.4, Lymph # (Auto) 2.3, [place] # (Auto) 0.5, Eos # (Auto) 0.3, Baso # (Auto) 0.1, PT 10.9, INR 0.97, Sodium 140, Potassium 4.1, Chloride 109 H, Carbon Dioxide 23, Anion Gap 12.1, BUN 14, Creatinine 0.90, Estimated Creat Clear 65, Estimated GFR 81, Est GFR ( Amer) 98, Glucose 113 H, Calcium 8.6, Total Bilirubin 0.5, AST 28, ALT 20, Alkaline Phosphatase 108, Total Protein 6.8, Albumin 3.6, Globulin 3.2, Albumin/Globulin Ratio 1.1 08/20/24 07:23: WBC 8.4, RBC 4.01 L, Hgb 12.1 L, Hct 36.0 L, MCV 89.8, MCH 30.2, MCHC 33.6, RDW 12.8, Plt Count 347, MPV 9.3, Neut % (Auto) 76.7, Lymph % (Auto) 15.7, [place] % (Auto) 6.7, Eos % (Auto) 0.1, Baso % (Auto) 0.4, Neut # (Auto) 6.5, Lymph # (Auto) 1.3, [place] # (Auto) 0.6, Eos # (Auto) 0.0, Baso # (Auto) 0.0, Sodium 141, Potassium 4.4, Chloride 109 H, Carbon Dioxide 26, Anion Gap 10.4, BUN 15, Creatinine 0.90, Estimated Creat Clear 62, Estimated GFR 81, Est GFR ( Amer) 98, Glucose 116 H, Calcium 8.4, Phosphorus 3.0, Magnesium 1.9 I & O for Labs for Last 24 Hours: Intake & Output 08/17/24 08/18/24 08/19/24 08/20/24 23:59 23:59 23:59 23:59 Intake Total 845 / 845 Output Total 0 / 0 Balance 0 / 0 845 / 845 Weight 78.608 kg 78.608 kg Constitutional: Present no acute distress, average body habitus, chronically ill appearing and cooperative Head: Present atraumatic and normocephalic ENT: Present normal exam Respiratory: Present normal respiratory effort; Absent rhonchi, wheezes or crackles Cardiac: Present Reg Rate and Rhythm GI: Present soft and normal bowel sounds; Absent distention or tenderness Extremities: Present tenderness (Over left hip); Absent normal inspection or full ROM Comment:: Left leg approximately 4 inches shorter than right leg and externally rotate Skin: Present intact; Absent erythema Neuro: Present Grossly Intact, alert, awake and moves all extremities Comment:: Oriented to self and place. Poor recall of episode that led to his admission. Forgot he had a broken hip. Assessment and Plan *Assessment and plan (1) Fracture of hip: Status: Acute Qualifiers: Encounter type: initial encounter Fracture type: closed Laterality: left Qualified Code(s): S72.002A - Fracture of unspecified part of neck of left femur, initial encounter for closed fracture Category: Medical Code(s): S72.009A - Fracture of unspecified part of neck of unspecified femur, initial encounter for closed fracture (2) Elevated PSA: Status: Acute Category: Medical Code(s): R97.20 - Elevated prostate specific antigen [PSA] (3) Closed intertrochanteric fracture of left hip: Status: Acute Qualifiers: Encounter type: initial encounter Fracture alignment: displaced Qualified Code(s): S72.142A - Displaced intertrochanteric fracture of left femur, initial encounter for closed fracture Category: Medical Code(s): S72.142A - Displaced intertrochanteric fracture of left femur, initial encounter for closed fracture (4) Hypertension: Status: Chronic Category: Medical Code(s): I10 - Essential (primary) hypertension Plan 83-year-old male who fell at home and sustained left femoral fracture. Discussed case with orthopedics. Will plan for surgery in the morning. Continues to necessitate inpatient care. Problems addressed as follows: Comminuted Left Proximal Femur Fracture Left inferior pubic rami fracture - Comminuted, impacted left femoral shaft fracture extending to lesser trochanter, with externally rotated, foreshortened left leg. Per my review of x-ray, has fragmentation of proximal end of femur that is fractured - Discussed case with orthopedics, will need cephalomedullary nailing of left proximal femur. Plan for surgical fixation in the morning. - Lovenox 40 mg subcu once today. - PT and OT consulted to evaluate after surgery - Continue oxycodone 5 mg oral every 4?6 hours as needed for moderate pain; add acetaminophen 650 mg oral every 6 hours scheduled x 4 doses. Monitor for toxicity -Due to immobility and urinary retention, will place Stokes catheter to monitor strict output. - Patient was independently mobile prior to admission. At average risk for intermediate risk procedure. Did not recommend any further preoperative optimization. Okay to continue metoprolol. Will hold aspirin. - No intervention for pubic rami fracture. Manage conservatively. Mild Anemia: Hemoglobin 12.7, hematocrit 38.6, likely chronic or post-traumatic, no active bleeding noted, in a patient on aspirin. -Repeat CBC, CMP, magnesium ordered for the -Holding aspirin - Order iron studies and ferritin if anemia progresses to assess for deficiency vs. chronic disease. Hypertension: BP 139/77 this morning. continue Metoprolol tartrate 25 mg daily Kidney function normal with BUN 15, creatinine 0.9. Electrolytes stable with p otassium 4.4, magnesium 1.9. Continue PPI daily per home regimen Full code lovenox 40mg once regular diet, NPO at midnight
[2024-08-20] MEDS: ENOXAPARIN 40MG/0.4ML SYRINGE 40 MG SUBCUT (15:40)
[2024-08-20 16:00] VITALS: BP 120/65; PULSE 58; RESP 16; TEMP 36.6; O2SAT 97
--- NOTE | 2024-08-20 17:49 | PC.NURSE ---
pt resting supine in bed. a &o x4. tolerating ra. pt has complained of L hip pain this shift and has been treated per mar. bowden placed this shift due to acute urinary retention. Dr. Murcia consulted today and planned surgery for tomorrow. consent signed and on the chart. daughter updated on POC. no needs at this time. call light within reach
[2024-08-20] MEDS: HYDROCODONE/APAP 5/325 MG TABLET 1 TAB PO (19:29)
[2024-08-20 20:00] VITALS: BP 140/71; PULSE 63; RESP 22; TEMP 36.4; O2SAT 98
[2024-08-20] MEDS: PANTOPRAZOLE 40MG TABLET 40 MG PO (21:02)
[2024-08-20] MEDS: ALUMINUM/MAGNESIUM/SIMETHICONE 30ML UDC 30 ML PO (21:03)
[2024-08-20 23:57] VITALS: BP 154/77; PULSE 60; RESP 16; TEMP 36.6; O2SAT 96
[2024-08-21] VITALS (19 sets, daily range): BP systolic 115–161; BP diastolic 62–88; PULSE 60–97; RESP 16–18; TEMP 35.9–38; O2SAT 92–98; BMI 30.2
[2024-08-21] MEDS: MORPHINE 2MG/ML SYRINGE 2 MG IV ×3 (02:48→21:19)
[2024-08-21] MEDS: ACETAMINOPHEN 325MG TAB 650 MG PO ×4 (02:48→21:20)
--- NOTE | 2024-08-21 03:15 | PC.NURSE ---
patient is alert and oriented x4, patient has complained of pain throughout the shift and has been medicated per mar, bowden cath in place draining adequate amount of urine, O2 sats remain >95% on RA, patient voiced no needs at this time, bed alarm is on and functioning, call button is in reach
[2024-08-21 06:44] LABS: Basophils # 0.1 K/mm3 (0-0.2); Basophils % 0.6 % (0.1-2.0); Eosinophils # 0.3 K/mm3 (0.0-0.4); Eosinophils % 3.9 % (0.1-12.0); Hematocrit 38.6 % (42.0-52.0); Hemoglobin 12.1 g/dL (14.1-18.0); Lymphocytes # 1.3 K/mm3 (0.7-4.5); Mean Corpuscular HGB Conc 31.3 g/dL (31.8-35.4); Mean Corpuscular Hemoglobin 29.9 pg (27.0-31.2); Mean Corpuscular Volume 95.3 fl (80-94); Mean Platelet Volume 10.3 fl (7.4-10.4); Monocytes # 0.6 K/mm3 (0.1-1.0); Monocytes % 7.9 % (1.7-9.3); Neutrophils # 5.7 K/mm3 (1.8-7.8); Neutrophils % 71.3 % (37.0-80.0); Nucleated Red Blood Cells # 0 10^3/uL; Nucleated Red Blood Cells % 0 %; Platelet Count 245 K/mm3 (142-424); Red Blood Count 4.05 M/mm3 (4.60-6.20); Red Cell Distribution Width 12.9 % (11.5-17.5); Red Cell Distribution Width-SD 45.1 fL
[2024-08-21 06:53] LABS: Chloride 108 mmol/L (98-107); Sodium 137 mmol/L (136-145)
[2024-08-21 06:54] LABS: Potassium 4.1 mmoL/L (3.5-5.1)
[2024-08-21 06:56] LABS: Blood Urea Nitrogen 13 mg/dl (9-20); Creatinine Clearance Estimated 65 mL/min (50-200); Estimated Glomerular Filt Rate 92 ml/min (>60); GFR (African American) 112 ML/MIN (>60)
[2024-08-21 06:57] LABS: Anion Gap 11.1 mEq/L (5-15); Calcium 8.3 mg/dl (8.4-10.2); Carbon Dioxide 22 mmol/L (22.0-30.0); Glucose 105 mg/dl (74-100)
--- NOTE | 2024-08-21 07:59 | EXP.ACUTE.PN ---
Subjective *Date: 08/21/24 *Time: 12:46 Interval history: Stable on room air. Denies significant pain in hip. Only when he moves does not hurt per his report. Hemodynamically stable. Afebrile. No nausea or vomiting. N.p.o. for surgery Medical Exam Vital signs and Labs for Last 24 Hours: Vital Signs Temp Pulse Pulse Resp BP Pulse Ox O2 Del Method 08/21/24 06:52 Room Air 08/21/24 05:00 Room Air 08/21/24 04:00 98.1 F 60 16 161/75 H 98 Room Air 08/21/24 03:00 Room Air 08/21/24 01:00 Room Air 08/20/24 23:57 97.8 F 60 16 154/77 H 96 Room Air 08/20/24 23:00 Room Air 08/20/24 21:00 Room Air 08/20/24 20:00 Room Air 08/20/24 20:00 97.6 F 63 22 140/71 98 Room Air 08/20/24 18:48 Room Air 08/20/24 17:00 Room Air 08/20/24 16:00 97.9 F 58 L 16 120/65 97 Room Air 08/20/24 15:00 Room Air 08/20/24 13:00 Room Air 08/20/24 11:00 Room Air 08/20/24 09:00 Room Air 08/20/24 08:00 97.7 F 57 L 16 139/77 96 Room Air 08/20/24 08:00 Room Air Intake and Output 08/20/24 08/20/24 08/21/24 15:59 23:59 07:59 Intake Total 460 / 2295 1330 / 2295 120 / 120 Output Total 350 / 350 425 / 425 Balance 460 / 1945 980 / 1945 -305 / -305 Intake: Intake, Oral Amount 460 / 1450 750 / 1450 120 / 120 Intake, Total IV Amount 580 / 845 Lactated Ringers 1000ML 1,000 580 / 845 ml @ 50 mls/hr IV .Q20H ONE Rx# :[id number] Output: Output, Urine Amount 350 / 350 425 / 425 Other: Weight 82.355 kg Patient Weight 08/21/24 23:59 Weight 82.355 kg Laboratory Results - last 24 hr 08/20/24 07:23: Sodium 141, Potassium 4.4, Chloride 109 H, Carbon Dioxide 26, Anion Gap 10.4, BUN 15, Creatinine 0.90, Estimated Creat Clear 62, Estimated GFR 81, Est GFR ( Amer) 98, Glucose 116 H, Calcium 8.4, Phosphorus 3.0, Magnesium 1.9 08/21/24 05:48: WBC 8.0, RBC 4.05 L, Hgb 12.1 L, Hct 38.6 L, MCV 95.3 H, MCH 29.9, MCHC 31.3 L, RDW 12.9, Plt Count 245 D, MPV 10.3, Neut % (Auto) 71.3, Lymph % (Auto) 16.0, [place] % (Auto) 7.9, Eos % (Auto) 3.9, Baso % (Auto) 0.6, Neut # (Auto) 5.7, Lymph # (Auto) 1.3, [place] # (Auto) 0.6, Eos # (Auto) 0.3, Baso # (Auto) 0.1, Sodium 137, Potassium 4.1, Chloride 108 H, Carbon Dioxide 22, Anion Gap 11.1, BUN 13, Creatinine 0.80, Estimated Creat Clear 65, Estimated GFR 92, Est GFR ( Amer) 112, Glucose 105 H, Calcium 8.3 L I & O for Labs for Last 24 Hours: Intake & Output 08/18/24 08/19/24 08/20/24 08/21/24 23:59 23:59 23:59 23:59 Intake Total 2175 / 2295 120 / 120 Output Total 0 / 0 350 / 350 425 / 425 Balance 0 / 0 1825 / 1945 -305 / -305 Weight 78.608 kg 78.608 kg 82.355 kg Constitutional: Present no acute distress, average body habitus, chronically ill appearing and cooperative Head: Present atraumatic and normocephalic ENT: Present normal exam Respiratory: Present normal respiratory effort; Absent rhonchi, wheezes or crackles Cardiac: Present Reg Rate and Rhythm GI: Present soft and normal bowel sounds; Absent distention or tenderness Extremities: Present tenderness (Over left hip); Absent normal inspection or full ROM Comment:: Left leg approximately 4 inches shorter than right leg and externally rotate Skin: Present intact; Absent erythema Neuro: Present Grossly Intact, alert, awake and moves all extremities Comment:: Oriented to self and place. Poor recall of episode that led to his admission. Forgot he had a broken hip. Assessment and Plan *Assessment and plan (1) Fracture of hip: Status: Acute Qualifiers: Encounter type: initial encounter Fracture type: closed Laterality: left Qualified Code(s): S72.002A - Fracture of unspecified part of neck of left femur, initial encounter for closed fracture Category: Medical Code(s): S72.009A - Fracture of unspecified part of neck of unspecified femur, initial encounter for closed fracture (2) Elevated PSA: Status: Acute Category: Medical Code(s): R97.20 - Elevated prostate specific antigen [PSA] (3) Closed intertrochanteric fracture of left hip: Status: Acute Qualifiers: Encounter type: initial encounter Fracture alignment: displaced Qualified Code(s): S72.142A - Displaced intertrochanteric fracture of left femur, initial encounter for closed fracture Category: Medical Code(s): S72.142A - Displaced intertrochanteric fracture of left femur, initial encounter for closed fracture (4) Hypertension: Status: Chronic Category: Medical Code(s): I10 - Essential (primary) hypertension Plan 83-year-old male who fell at home and sustained left femoral fracture. Discussed case with orthopedics. Going for surgery today. Continue inpatient management. Therapy to evaluate after procedure. Problems addressed as follows: Comminuted Left Proximal Femur Fracture Left inferior pubic rami fracture - Comminuted, impacted left femoral shaft fracture extending to lesser trochanter, with externally rotated, foreshortened left leg. Per my review of x-ray, has fragmentation of proximal end of femur that is fractured - Discussed case with orthopedics, plan for cephalomedullary nailing today. Therapy to evaluate after surgery. Will advance to aspirin for DVT prophylaxis after surgery - Continue oxycodone 5 mg oral every 4?6 hours as needed for moderate pain; add acetaminophen 650 mg oral every 6 hours scheduled x 4 doses. Monitor for toxicity - Due to immobility and urinary retention, continue with Stokes today, will consider removing tomorrow. - Patient was independently mobile prior to admission. At average risk for intermediate risk procedure. Did not recommend any further preoperative optimization. Okay to continue metoprolol. Will hold aspirin. - No intervention for pubic rami fracture. Manage conservatively. Mild Anemia: - Hemoglobin 12, white count 8. Platelets 245. Kidney function normal with BUN 13, creatinine 0.8. -Repeat CBC, CMP, magnesium ordered for the -Holding aspirin - Order iron studies and ferritin if anemia progresses to assess for deficiency vs. chronic disease. Hypertension: BP 147/85 this morning. continue Metoprolol tartrate 25 mg daily Kidney function normal with BUN 1 13, creatinine 0.8; potassium 4.1. Continue PPI daily per home regimen Full code NPO
[2024-08-21] MEDS: HYDROCODONE/APAP 5/325 MG TABLET 1 TAB PO (08:48)
[2024-08-21] MEDS: METHOCARBAMOL 500MG TABLET 500 MG PO ×3 (08:48→21:20)
[2024-08-21] MEDS: SODIUM CHLORIDE 0.9% 10ML FLUSH SYRINGE 10 ML IV (10:56)
--- NOTE | 2024-08-21 11:34 | SW/DCPLANNER ---
Addendum entered by Carla Lynn 08/21/24 15:16: Taylor jameson/ [facility] will follow up w/ referral on Saturday. Original Note: I spoke w/ this patient regarding plans once medically stable for discharge. Patient is scheduled for surgery w/ Ortho today due to hip fracture. PT will evaluate after surgery. Patient stated that if placement is needed at time of discharge he would prefer [facility]. Patient information will be faxed to Taylor jameson/ [facility]ce Ramirez this AM. I will continue to follow up w/ patient, family, and Royce Ramirez. Discharge date is unknown at this time.
--- NOTE | 2024-08-21 11:45 | EXP.ANES.CKL ---
[facility] Disclaimer: The information contained in this section may have been updated after the patient was seen, as this information can be updated by other users. Medical History (Updated 08/20/24 @ 15:33 by Frank Quinones MD) Hypertension Social History Smoking Status: Former smoker alcohol intake: never substance use type: denies use current occupational status: retired Travel in the last 8 weeks: None household members: spouse housing: house Have you lived/traveled outside US in past 30 days?: No Contact w/someone who lives/traveled outside US past 30 days?: No Exposure to someone with infectious disease in past 14 days?: No Do you have a fever (greater than 100.4 F or 38 C)?: No Have you tested positive for COVID-19: No Exposed to someone with COVID-19 in past 14 days?: No Do you have a sore throat?: No Do you have a cough?: No Do you have any weakness?: No Do you have any diarrhea?: No Are you experiencing any unusual bleeding?: No Do you have any muscle aches/pain?: No Do you have any abdominal pain?: No Are you experiencing loss of taste or smell?: No [facility] Anesthesia Checklist Patient Identification Patient Identification: Arm Band Structural Data Admitted From: Home Planned Operative Procedure/s: Cephalomedullary Nailing Left Femur Consent for Planned Operative Procedure(s) Verified: Yes Verified Documents: Surgical Consent and History and Physical NPO Status Verified Time NPO: 00:00 Additional verifications Anesthesia Reactions: No Airway Assessment Mallampati Score:: Class II C-Spine Mobility Assessed: Yes TMJ Mobility Assessed: Yes Dentition: Poor Dentition Neurological Assessment Level of Consciousness: Awake, Alert and Appropriate Anesthesia Plan Anesthesia Risk discussed: Yes Anesthesia Plan: Verified ASA Class: II Anesthesia Type: MAC w/Spinal (discussed risks/benefits of SAB + MAC. Pt verbalized understanding)
--- NOTE | 2024-08-21 14:00 | PC.NURSE ---
Contact info for pt's private sitter (Isabel Hermosillo) [phone] Alaina (daughter) [phone]
--- NOTE | 2024-08-21 14:26 | PC.NURSE ---
Pt off the floor to surgery w/ OR staff @ [id number]
[2024-08-21] MEDS: CEFAZOLIN SODIUM 2 GM in 0.9 % SODIUM CHLORIDE 100 ML IV (15:11)
--- NOTE | 2024-08-21 17:41 | XR_ITS ---
PROCEDURE INFORMATION: Exam: XR Left Hip Exam date and time: 08/21/2024 5:30 PM Age: 83 years old Clinical indication: Screening exam; Prior surgery; Surgery date: Post-operative (0-2 days); Surgery type: Hip; Additional info: Left hip in or. 3.1 min. 35.53 mgy. TECHNIQUE: Imaging protocol: Radiologic exam of the left hip. Views: 2 or 3 views hip with pelvis when performed. COMPARISON: CT BONY PELVIS 08/19/2024 8:48 PM FINDINGS: Bones/joints: Intraoperative radiograph reveals intramedullary stephen and dynamic compression screw fixation of intertrochanteric left femur fracture. Soft tissues: Unremarkable. IMPRESSION: Postsurgical changes as above
--- NOTE | 2024-08-21 18:13 | EXP.OP.NOTE ---
Date of procedure: 08/21/24 Pre-op Diagnosis:: Left intertrochanteric/subtrochanteric proximal femur fracture Post-op Diagnosis:: Same Procedure performed:: Cephalomedullary nailing left proximal femur Surgeon:: Bennie Murcia DO PUBLIC DEFENDER:: Frank Torres Anesthesia: spinal Estimated blood loss (mL): 100 Operative findings:: Intertrochanteric with subtrochanteric tension fracture Operative note:: Patient identified preoperatively. Left hip marked with yes minus was. Transferred operative suite given spinal anesthesia. He was then placed supine on the fracture table. Perineal post was placed nonoperative leg was placed in semilithotomy position out of the operative area operative leg was placed inline traction with the fracture table. Upper extremity secured. X-ray was then brought in for reduction maneuver of the fracture X-ray guidance was used for abduction of the hip against the perineal post with internal rotation and traction I was able to reduce the hip both on the AP and lateral views. Left hip was then prepped and draped in normal sterile fashion. Once prepped and draped final operative timeout performed to identify the proper patient procedure and extremity. Everyone involved in the case agreed. There is no counter indication to beginning. Did receive preoperative antibiotics. Marking pen was used to afia plan 2 fingerbreadth incision 2 fingerbreadths above the greater trochanter. Skin knife is used to incise the skin down through the IT band. Guidewire was then placed in the tip of the greater trochanter and down into the fracture site through direct visualization on the x-ray the curved awl was utilized to guide the guidewire. Once the guidewire was then placed the opening reamer was selected. Once the opening reamer was selected the long ball-tipped guidewire was placed down through the curved awl to go past the fracture down into the canal this was verified on multiple views on the x-ray to be in good position. At that time I sequentially reamed starting with a size 9 reamer up to a 12-1/2 reamer through the canal that gave chatter and good fill with a 12-1/2. The ball-tipped guidewire was placed distally and the measuring device was selected and measured to a size 410 nail. There was a 400 and 420 nail available so the 400 x 11 mm long TFN nail was selected. It was then placed over the guidewire and impacted down under direct visualization. It was placed to the proper depth and the 3 and 1 guide was selected and guidewire was placed into the femoral head. Guidewire was seen on AP and lateral views and measured to size 100. Cortex reamer was selected followed by the step reamer to 100 in the 100 size helical blade was selected and impacted into place then locked into place. Once that was completed attention was then brought distally after the nail was impacted for perfect circles at the knee for placement of the distal locking screw. Leg was placed in slight abduction x-rays brought in for perfect circles in the middle slot of the long TFN. The 1 set of PerfectServe was obtained cortex was drilled and the appropriate size screw was selected to placed through the distal locking screw. This confirmed on the AP and lateral x-rays. The implant welding systems and equipment repairer was then removed irrigation the wound performed IT band closed with 0 Vicryl subcutaneous with 2-0 Vicryl surgical clips in skin for closure sterile dressing placed with Xeroform 4 x 4's ABDs and tape. Patient and was then transported back to recovery room in stable condition. Condition: stable Disposition: PACU Complications:: None apparent
--- NOTE | 2024-08-21 18:18 | EXP.ANES.I ---
[facility] Anesthesia Record Part I Anesthesia Record I Intake, IV Amount: 1,800 Hydration: Adequate Estimated blood loss (mL): 100 Urine output (mL): 1,000 Blood Products used (#): none Blood Pressure: 115/65 SaO2: 92 Pulse Rate: 97 Airway Patency: Patent Respiratory Rate: 16 Temperature: 97.3 F Patient is:: Drowsy and Stable Stable to PACU at:: 18:05
[2024-08-21] MEDS: MORPHINE 2MG/ML SYRINGE 1 MG IV ×3 (18:25→18:35)
[2024-08-21] MEDS: CEFAZOLIN SODIUM 1 GM in 0.9 % SODIUM CHLORIDE 50 ML IV (19:00)
[2024-08-21] MEDS: LACTATED RINGERS 1000ML 1,000 ML 75 ML IV (19:00)
[2024-08-21] MEDS: PANTOPRAZOLE 40MG TABLET 40 MG PO (21:20)
[2024-08-21] MEDS: ASPIRIN 81MG CHEWABLE TABLET 81 MG PO (21:20)
[2024-08-22] VITALS: BP 122/69; PULSE 90; RESP 18; TEMP 36.6; O2SAT 96
[2024-08-22] MEDS: CEFAZOLIN SODIUM 1 GM in 0.9 % SODIUM CHLORIDE 50 ML IV (00:30)
[2024-08-22] MEDS: ACETAMINOPHEN 325MG TAB 650 MG PO ×4 (02:42→22:00)
[2024-08-22 04:00] VITALS: BP 116/64; PULSE 76; RESP 18; TEMP 36.9; O2SAT 954; BMI 29.6
[2024-08-22] MEDS: CALCIUM CARBONATE 500MG CHEWTAB 500 MG PO (05:15)
[2024-08-22 08:00] VITALS: BP 139/70; PULSE 80; RESP 18; TEMP 36.8; O2SAT 96
[2024-08-22] MEDS: ASPIRIN 81MG CHEWABLE TABLET 81 MG PO ×2 (08:24→21:00)
[2024-08-22] MEDS: METHOCARBAMOL 500MG TABLET 500 MG PO ×3 (08:24→21:00)
[2024-08-22 08:43] LABS: Basophils # 0.1 K/mm3 (0-0.2); Basophils % 0.8 % (0.1-2.0); Eosinophils # 0.3 Kmm3 (0.0-0.4); Eosinophils % 4.7 % (0.1-12.0); Hematocrit 34.1 % (42.0-52.0); Hemoglobin 11.3 g/dL (14.1-18.0); Lymphocytes # 0.9 K/mm3 (0.7-4.5); Lymphocytes % 11.8 % (10-50); Mean Corpuscular HGB Conc 33.1 g/dL (31.8-35.4); Mean Corpuscular Hemoglobin 30.3 pg (27.0-31.2); Mean Corpuscular Volume 91.4 fl (80-94); Mean Platelet Volume 9.9 fl (7.4-10.4); Monocytes # 0.6 K/mm3 (0.1-1.0); Monocytes % 8.1 % (1.7-9.3); Neutrophils # 5.4 K/mm3 (1.8-7.8); Neutrophils % 74.2 % (37.0-80.0); Nucleated Red Blood Cells # 0 10^3/uL; Nucleated Red Blood Cells % 0 %; Platelet Count 288 K/mm3 (142-424); Red Blood Count 3.73 M/mm3 (4.60-6.20); Red Cell Distribution Width 12.9 % (11.5-17.5); Red Cell Distribution Width-SD 42.5 fL; White Blood Count 7.3 K/mm3 (4.8-10.8)
[2024-08-22 08:50] LABS: Chloride 106 mmol/L (98-107); Sodium 136 mmol/L (136-145)
[2024-08-22 08:51] LABS: Potassium 4.1 mmoL/L (3.5-5.1)
[2024-08-22 08:54] LABS: Anion Gap 10.1 mEq/L (5-15); Blood Urea Nitrogen 10 mg/dl (9-20); Calcium 8.3 mg/dl (8.4-10.2); Carbon Dioxide 24 mmol/L (22.0-30.0); Creatinine Clearance Estimated 64 mL/min (50-200); Estimated Glomerular Filt Rate 108 ml/min (>60); GFR (African American) 130 ML/MIN (>60); Glucose 99 mg/dl (74-100)
[2024-08-22 12:00] VITALS: BP 113/64; PULSE 80; RESP 18; TEMP 36.9; O2SAT 93
[2024-08-22] MEDS: LACTATED RINGERS 1000ML 1,000 ML 75 ML IV ×2 (12:47→21:00)
--- NOTE | 2024-08-22 14:48 | PC.NURSE ---
left lateral incision site dressing changed do to previous dressing peeling off. superior incision site has a small amount of redness, does not feel hot to the touch, no complaints from patient. dressing is C/D/I
[2024-08-22 16:00] VITALS: BP 131/76; PULSE 87; RESP 20; TEMP 36.8; O2SAT 98
--- NOTE | 2024-08-22 16:32 | HMH.PTEV ---
Physical Therapy Evaluation Rehab PT IP Evaluation Start: 08/21/24 18:25 Freq: ONCE Status: Active Protocol: Document 08/22/24 16:20 LUIS (Rec: 08/22/24 16:31 LUIS [id number]) Subjective/History History History Pt is an 83 yom who presents to [facility] inpatient s/p Cephalomedullary nailing left proximal femur performed on . The pt fell in his kitchen on 08/19 and fractured his left femur. The pt has a PMH significant for HTN. Pt currently is WBAT on his LLE. Subjective Subjective Pt is alert and oriented x3. Pt reports that he lives in a house with his . Pt reports that he has 1 ANCA. He reports that at baseline, he was fully IND with all ADLs. He did not use any AD for mobility. He reports that he has no history of falls prior to the one which fractured his leg. He reports that his uses a walker to get around. He reports that he occasionally has to help her get around. Pt reports that his does most of the cooking/cleaning and they have someone that helps out. Pt reports that he does drive. New diagnosis of cancer in past 12 No months? [facility] How much help from another person do you currently need... Turning from your back to your side A little while in a flat bed without using bedrails? Moving from lying on back to sitting on A little the side of a flat bed without using bedrails? Moving to and from a bed to a chair ( A little including a wheelchair)? Standing up from a chair using your arms A little ? (e.g., wheelchair, bedside chair) Walking in hospital room? A little Climbing 3-5 steps with a railing? A lot Mobility Score [address] [facility] Mobility Calculator Mobility 5 Stand (1 or more minutes) Rehab PT IP Eval Objective Appearance Patient Behavior Appropriate,Patient Baseline Patient Orientation Person,Place,Time Difficulty following instructions none Speech Pattern Clear Ambulation Patient Able to Ambulate Yes Ambulation Observation IP General Gait Pattern Observation Antalgic Gait,Decrease Weight Bear (L),Decrease Stride Lngth (R) Ambulation Distance (feet) 5 Ambulation Assistive Device Rolling Walker Ambulation Ability Minimal x 1 (25% assist) Balance Ability to Arise Able, uses arms to help Sitting Balance Steady, safe Standing Balance Steady, wide stance Dynamic Sitting Balance Ability Good Dynamic Standing Balance Ability Fair Transfers Bed Transfer Ability Minimal x 1 (25% assist) Chair Transfer Ability Minimal x 1 (25% assist) Sit to Stand Bed Transfer Ability Minimal x 1 (25% assist) Sit to Stand Chair Transfer Ability Minimal x 1 (25% assist) Pain Left Thigh Pain Intensity 8 MMT LLE PT MMT ABN Abnormal MMT Grade 1/5 hip flexion and knee extension Rehab PT IP prob,goals,plan Problems Date of Evaluation: 08/22/24 PT IP Problems Bed Mobility,Transfers,Gait, Balance,Self care,Safety Rehab Potential Rehab Potential Good Equipment Needs Assistive Devices Rolling / Wheeled Walker Plan PT Intervention Plan Bed Mobility,Transfers,Gait, Balance,Self care,Safety, Therapeutic Exercise PT Plan Frequency BID Duration LOS Discharge Goals Bed Transfer Ability Independent Sit to Stand Chair Transfer Ability Independent Ambulation Assistive Device Rolling Walker Ambulation Distance (feet) 50 Discharge Plan PT Discharge Plan PT is recommending placement for further rehab upon discharge from the hospital. Pt currently presents as a significant fall risk due to his ambulatory ability. His is incapable of providing him appropriate assistance needed at this time. Pt would also benefit from skilled PT during his acute stay to strengthen his LLE, improve his ambulatory ability and prevent further injuries. Eval Complexity Eval Charge Codes 87889 - Moderate Complexity PHYSICIAN CERTIFICATION: I certify the specified therapy services for [place] Arceo are required, authorized, and reviewed every 30 days.
[2024-08-22] MEDS: HYDROCODONE/APAP 5/325 MG TABLET 1 TAB PO ×2 (18:02→23:53)
[2024-08-22 20:00] VITALS: BP 136/83; PULSE 82; RESP 16; TEMP 36.9; O2SAT 95
[2024-08-22] MEDS: PANTOPRAZOLE 40MG TABLET 40 MG PO (21:00)
--- NOTE | 2024-08-22 21:17 | P.PN_ITS ---
Subjective *Date: 08/22/24 *Time: 21:17 Interval history: Patient doing well today, no acute complaints. Pain adequately managed. Pending placement. Exam Data for Last 24 hours Vital signs and Labs for Last 24 Hours: Temp Pulse Resp BP Pulse Ox O2 Del Method 98.3 F 87 20 131/76 98 Room Air 08/22/24 16:00 08/22/24 16:00 08/22/24 16:00 08/22/24 16:00 08/22/24 16:00 08/22/24 18:53 Laboratory Results - last 24 hr 08/22/24 07:35: WBC 7.3, RBC 3.73 L, Hgb 11.3 L, Hct 34.1 L, MCV 91.4, MCH 30.3, MCHC 33.1, RDW 12.9, Plt Count 288, MPV 9.9, Neut % (Auto) 74.2, Lymph % (Auto) 11.8, [place] % (Auto) 8.1, Eos % (Auto) 4.7, Baso % (Auto) 0.8, Neut # (Auto) 5.4, Lymph # (Auto) 0.9, [place] # (Auto) 0.6, Eos # (Auto) 0.3, Baso # (Auto) 0.1, Sodium 136, Potassium 4.1, Chloride 106, Carbon Dioxide 24, Anion Gap 10.1, BUN 10, Creatinine 0.70, Estimated Creat Clear 64, Estimated GFR 108, Est GFR ( Amer) 130, Glucose 99, Calcium 8.3 L I & O for Last 24 hours: Intake & Output 08/19/24 08/20/24 08/21/24 08/22/24 23:59 23:59 23:59 23:59 Intake Total 2175 / 2295 2160 / 2160 1152 / 1152 Output Total 0 / 0 350 / 350 2125 / 2125 850 / 850 Balance 0 / 0 1825 / 1945 35 / 35 302 / 302 Weight 78.608 kg 78.608 kg 82.3 kg 80.603 kg Assessment and Plan *Assessment and plan (1) Fracture of hip: Status: Acute Qualifiers: Encounter type: initial encounter Fracture type: closed Laterality: left Qualified Code(s): S72.002A - Fracture of unspecified part of neck of left femur, initial encounter for closed fracture Category: Medical Code(s): S72.009A - Fracture of unspecified part of neck of unspecified femur, initial encounter for closed fracture (2) Elevated PSA: Status: Acute Category: Medical Code(s): R97.20 - Elevated prostate specific antigen [PSA] (3) Closed intertrochanteric fracture of left hip: Status: Acute Qualifiers: Encounter type: initial encounter Fracture alignment: displaced Qualified Code(s): S72.142A - Displaced intertrochanteric fracture of left femur, initial encounter for closed fracture Category: Medical Code(s): S72.142A - Displaced intertrochanteric fracture of left femur, initial encounter for closed fracture (4) Hypertension: Status: Chronic Category: Medical Code(s): I10 - Essential (primary) hypertension Plan 83-year-old male who fell at home and sustained left femoral fracture. Comminuted Left Proximal Femur Fracture Left inferior pubic rami fracture - Comminuted, impacted left femoral shaft fracture extending to lesser trochanter, with externally rotated, foreshortened left leg. Per my review of x-ray, has fragmentation of proximal end of femur that is fractured - Discussed case with orthopedics, s/p cephalomedullary nailing today. ? PT recommends SNF, case management will assist with placement. - Continue oxycodone 5 mg oral every 4?6 hours as needed for moderate pain; add acetaminophen 650 mg oral every 6 hours scheduled x 4 doses. Monitor for toxicity ?Aspirin 81 mg twice daily for DVT prophylaxis. - No intervention for pubic rami fracture. Manage conservatively. Mild Anemia: - Hemoglobin 12, white count 8. Platelets 245. Kidney function normal with BUN 13, creatinine 0.8. -Repeat CBC, CMP, magnesium ordered for the morning - Order iron studies and ferritin if anemia progresses to assess for deficiency vs. chronic disease. Hypertension: continue Metoprolol tartrate 25 mg daily Continue PPI daily per home regimen Full code
[2024-08-23] VITALS: BP 144/93; PULSE 95; RESP 16; TEMP 36.6; O2SAT 95
[2024-08-23] MEDS: ACETAMINOPHEN 325MG TAB 650 MG PO ×6 (02:00→20:40)
[2024-08-23 04:00] VITALS: BP 118/61; PULSE 68; RESP 16; TEMP 37.5; O2SAT 95; BMI 29.2
--- NOTE | 2024-08-23 04:08 | PC.NURSE ---
Pt's incision sites from post femur fx repair are absent of drainage, warm to touch, pink, pulses bounding in LLE. Pt c/o intermittent pain, treated per JUL. Pt is alert to self, place, and sometimes situation, but disoriented to time. V/s, RA. No acute events to report. Plan of care ongoing.
[2024-08-23 08:00] VITALS: BP 124/62; PULSE 81; RESP 18; TEMP 36.6; O2SAT 97
[2024-08-23] MEDS: METHOCARBAMOL 500MG TABLET 500 MG PO ×3 (08:01→20:40)
[2024-08-23] MEDS: ASPIRIN 81MG CHEWABLE TABLET 81 MG PO ×2 (08:01→20:40)
[2024-08-23 08:10] LABS: Basophils # 0.1 K/mm3 (0-0.2); Basophils % 0.7 % (0.1-2.0); Eosinophils # 0.5 Kmm3 (0.0-0.4); Eosinophils % 6.3 % (0.1-12.0); Hematocrit 31.7 % (42.0-52.0); Hemoglobin 10.5 g/dL (14.1-18.0); Lymphocytes # 1.1 K/mm3 (0.7-4.5); Lymphocytes % 13.8 % (10-50); Mean Corpuscular HGB Conc 33.1 g/dL (31.8-35.4); Mean Corpuscular Hemoglobin 29.9 pg (27.0-31.2); Mean Corpuscular Volume 90.3 fl (80-94); Mean Platelet Volume 9.8 fl (7.4-10.4); Monocytes # 0.7 K/mm3 (0.1-1.0); Monocytes % 8.9 % (1.7-9.3); Neutrophils # 5.3 K/mm3 (1.8-7.8); Nucleated Red Blood Cells # 0 10^3/uL; Nucleated Red Blood Cells % 0 %; Platelet Count 312 K/mm3 (142-424); Red Blood Count 3.51 M/mm3 (4.60-6.20); Red Cell Distribution Width 12.9 % (11.5-17.5); Red Cell Distribution Width-SD 42.7 fL; White Blood Count 7.6 K/mm3 (4.8-10.8)
[2024-08-23 08:20] LABS: Albumin Level 2.8 g/dl (3.5-5.0)
[2024-08-23 08:21] LABS: Chloride 105 mmol/L (98-107); Sodium 136 mmol/L (136-145)
[2024-08-23 08:23] LABS: Alanine Aminotransferase 18 U/L (12-78); Alkaline Phosphatase 95 U/L (38-126); Aspartate Amino Transferase 45 U/L (17-59); Bilirubin,Total 1.2 mg/dl (0.2-1.3); Blood Urea Nitrogen 10 mg/dl (9-20); Creatinine Clearance Estimated 63 mL/min (50-200); Estimated Glomerular Filt Rate 81 ml/min (>60); GFR (African American) 98 ML/MIN (>60); Globulin 2.9 g/dL (1.3-3.2); Total Protein,Serum 5.7 g/dl (6.3-8.2)
[2024-08-23 08:24] LABS: Calcium 8.5 mg/dl (8.4-10.2); Chol/HDL Ratio 4.1 (1-3.5); Cholesterol 138 mg/dl (140-200); Glucose 98 mg/dl (74-100); HDL Cholesterol 34 mg/dl (40-60); Iron 42 ug/dL (49-181); Magnesium 1.9 mg/dl (1.6-2.3); Triglycerides 104 mg/dl (30-150); VLDL Cholesterol 21 mg/dL (0-40)
[2024-08-23 08:34] LABS: Total Iron Binding Capacity 273 ug/dL (261-462)
[2024-08-23 08:35] LABS: Direct LDL Cholesterol 77.48 mg/dL (100-129)
[2024-08-23 08:46] LABS: Free T4 (Free Thyroxine) 1.07 ng/dl (0.78-2.19)
[2024-08-23 08:59] LABS: Ferritin 51.9 ng/ml (17.9-464); Hemoglobin A1C 5.6 % (4.0-6.0)
[2024-08-23 09:37] LABS: Folate 9.45 ng/mL
[2024-08-23 09:39] LABS: Vitamin B12 208 pg/mL (239-931)
[2024-08-23 09:57] LABS: Carbon Dioxide 27 mmol/L (22.0-30.0)
[2024-08-23 10:01] LABS: Thyroid Stimulating Hormone 4.85 uIU/mL (0.465-4.68)
[2024-08-23 12:00] VITALS: BP 123/53; PULSE 69; RESP 20; TEMP 37.2; O2SAT 95
[2024-08-23] MEDS: POLYETHYLENE GLYCOL 3350 17 GM PACKET PO (13:25)
[2024-08-23] MEDS: LEVOTHYROXINE 25MCG (0.025MG) TAB 25 MCG PO (13:25)
[2024-08-23] MEDS: LACTATED RINGERS 1000ML 1,000 ML 75 ML IV (13:27)
--- NOTE | 2024-08-23 15:52 | EXP.PN ---
Subjective *Date: 08/23/24 *Time: 15:52 Interval history: Patient doing well and is in good spirits. No acute complaints. Looking forward to rehab. Exam Data for Last 24 hours Vital signs and Labs for Last 24 Hours: Temp Pulse Resp BP Pulse Ox O2 Del Method 99.0 F 69 20 123/53 L 95 Room Air 08/23/24 12:00 08/23/24 12:00 08/23/24 12:00 08/23/24 12:00 08/23/24 12:00 08/23/24 13:00 Laboratory Results - last 24 hr 08/23/24 07:20: WBC 7.6, RBC 3.51 L, Hgb 10.5 L, Hct 31.7 L, MCV 90.3, MCH 29.9, MCHC 33.1, RDW 12.9, Plt Count 312, MPV 9.8, Neut % (Auto) 70.0, Lymph % (Auto) 13.8, [place] % (Auto) 8.9, Eos % (Auto) 6.3, Baso % (Auto) 0.7, Neut # (Auto) 5.3, Lymph # (Auto) 1.1, [place] # (Auto) 0.7, Eos # (Auto) 0.5 H, Baso # (Auto) 0.1, Sodium 136, Potassium 4.0, Chloride 105, Carbon Dioxide 27, Anion Gap 8.0, BUN 10, Creatinine 0.90 D, Estimated Creat Clear 63, Estimated GFR 81, Est GFR ( Amer) 98 D, Glucose 98, Hemoglobin A1c 5.6, Calcium 8.5, Magnesium 1.9, Iron 42 L, TIBC 273, Iron Saturation 15.05198, Ferritin 51.9, Total Bilirubin 1.2, AST 45, ALT 18, Alkaline Phosphatase 95, Total Protein 5.7 L, Albumin 2.8 L, Globulin 2.9, Albumin/Globulin Ratio 1.0 L, Triglycerides 104, Cholesterol 138 L, LDL Cholesterol Direct 77.48 L, VLDL Cholesterol 21, HDL Cholesterol 34 L, Cholesterol/HDL Ratio 4.1 H, Vitamin B12 208 L, Folate 9.45, TSH 4.85 H, Free T4 1.07 I & O for Last 24 hours: Intake & Output 08/20/24 08/21/24 08/22/24 08/23/24 23:59 23:59 23:59 23:59 Intake Total 2175 / 2295 2160 / 2160 1152 / 1392 760 / 760 Output Total 350 / 350 5 / 2125 1050 / 1050 350 / 350 Balance 1824 / 194 35 / 35 102 / 342 410 / 410 Weight 78.608 kg 82.3 kg 80.603 kg 79.515 kg Constitutional Constitutional: no acute distress *Routine HEENT Exam Head: Present normocephalic Eye: Present EOMI and PERRL ENT: Present mucous membranes moist *Routine Neck Exam Neck: Present supple; Absent lymphadenopathy *Routine Respiratory Exam Respiratory: Present CTA bilaterally *Routine Cardiovascular Exam Cardiovascular: Present RRR *Routine Abdominal Exam Abdominal: Present soft and normoactive bowel sounds; Absent tenderness *Routine Extremities Exam Extremities: Absent cyanosis, clubbing or edema *Routine Skin Exam Skin: Present warm; Absent rash *Routine Neurological Exam Neurological: Present alert and oriented X3 Assessment and Plan *Assessment and plan (1) Fracture of hip: Status: Acute Qualifiers: Encounter type: initial encounter Fracture type: closed Laterality: left Qualified Code(s): S72.002A - Fracture of unspecified part of neck of left femur, initial encounter for closed fracture Category: Medical Code(s): S72.009A - Fracture of unspecified part of neck of unspecified femur, initial encounter for closed fracture (2) Closed intertrochanteric fracture of left hip: Status: Acute Qualifiers: Encounter type: initial encounter Fracture alignment: displaced Qualified Code(s): S72.142A - Displaced intertrochanteric fracture of left femur, initial encounter for closed fracture Category: Medical Code(s): S72.142A - Displaced intertrochanteric fracture of left femur, initial encounter for closed fracture Plan Salinas Arceo is a 83-year-old male who fell at home and sustained left femoral fracture. Comminuted Left Proximal Femur Fracture Left inferior pubic rami fracture - Comminuted, impacted left femoral shaft fracture extending to lesser trochanter, with externally rotated, foreshortened left leg. Per my review of x-ray, has fragmentation of proximal end of femur that is fractured - Orthopedic surgery consulted, s/p cephalomedullary nailing 08/21/2024. ? PT recommends SNF, case management will assist with placement. - Continue oxycodone 5 mg oral every 4?6 hours as needed for moderate pain; add acetaminophen 650 mg oral every 6 hours scheduled x 4 doses. Monitor for toxicity ? Aspirin 81 mg twice daily for DVT prophylaxis. - No intervention for pubic rami fracture. Manage conservatively. ? B12 low, will start oral B12 on discharge. Normal folate, ferritin. #Hypothyroidism ? TSH elevated to 4.85, free T4 low normal. ? Started levothyroxine 25 mcg. Hypertension: continue Metoprolol tartrate 25 mg daily Continue PPI daily per home regimen Full code
[2024-08-23 16:00] VITALS: BP 137/72; PULSE 76; RESP 18; TEMP 36.9; O2SAT 96
--- NOTE | 2024-08-23 18:13 | PC.NURSE ---
patient is a/o x3, he has periods of acute but pleasant confusion about family members being present. remains on room air tolerating well. PT evaluated patient this shift. PW in place, urine is clear and gage. incentive spirometer at bedside. left leg dressing C/D/I. patient has moderate to severe pain on movement but states he has no pain when lying still. tylenol given per MAR, patient states that helps with pain. patient has not had a BM, miralax given earlier in shift. bed alarm in place, call light within reach, plan of care ongoing, no complaints voiced at this time.
[2024-08-23 20:00] VITALS: BP 144/84; PULSE 73; RESP 16; TEMP 37; O2SAT 95
[2024-08-23] MEDS: PANTOPRAZOLE 40MG TABLET 40 MG PO (20:40)
[2024-08-24] VITALS: BP 149/66; PULSE 60; RESP 16; TEMP 36.6; O2SAT 97
[2024-08-24] MEDS: LACTATED RINGERS 1000ML 1,000 ML 75 ML IV (01:09)
[2024-08-24] MEDS: ACETAMINOPHEN 325MG TAB 650 MG PO ×4 (01:09→15:21)
[2024-08-24 04:00] VITALS: BP 156/92; PULSE 80; RESP 16; TEMP 36.6; O2SAT 94; BMI 29.7
--- NOTE | 2024-08-24 04:48 | PC.NURSE ---
dsg changed to left femur
[2024-08-24] MEDS: LEVOTHYROXINE 25MCG (0.025MG) TAB 25 MCG PO (06:37)
[2024-08-24 07:15] LABS: Basophils # 0.1 K/mm3 (0-0.2); Basophils % 0.7 % (0.1-2.0); Eosinophils # 0.5 Kmm3 (0.0-0.4); Hematocrit 31.4 % (42.0-52.0); Hemoglobin 10.5 g/dL (14.1-18.0); Lymphocytes # 1.4 K/mm3 (0.7-4.5); Lymphocytes % 15.9 % (10-50); Mean Corpuscular HGB Conc 33.4 g/dL (31.8-35.4); Mean Corpuscular Hemoglobin 30.3 pg (27.0-31.2); Mean Corpuscular Volume 90.5 fl (80-94); Mean Platelet Volume 9.5 fl (7.4-10.4); Monocytes # 0.7 K/mm3 (0.1-1.0); Monocytes % 8.4 % (1.7-9.3); Neutrophils # 5.9 K/mm3 (1.8-7.8); Neutrophils % 68.6 % (37.0-80.0); Nucleated Red Blood Cells # 0 10^3/uL; Nucleated Red Blood Cells % 0 %; Platelet Count 317 K/mm3 (142-424); Red Blood Count 3.47 M/mm3 (4.60-6.20); Red Cell Distribution Width 12.9 % (11.5-17.5); Red Cell Distribution Width-SD 42.7 fL; White Blood Count 8.6 K/mm3 (4.8-10.8)
[2024-08-24 07:25] LABS: Albumin Level 2.7 g/dl (3.5-5.0); Chloride 109 mmol/L (98-107); Potassium 3.8 mmoL/L (3.5-5.1); Sodium 136 mmol/L (136-145)
[2024-08-24 07:28] LABS: Alanine Aminotransferase 31 U/L (12-78); Albumin/Globulin Ratio 0.9 (1.1-1.8); Alkaline Phosphatase 93 U/L (38-126); Anion Gap 6.8 mEq/L (5-15); Aspartate Amino Transferase 56 U/L (17-59); Bilirubin,Total 1.2 mg/dl (0.2-1.3); Blood Urea Nitrogen 11 mg/dl (9-20); Carbon Dioxide 24 mmol/L (22.0-30.0); Creatinine Clearance Estimated 64 mL/min (50-200); Estimated Glomerular Filt Rate 92 ml/min (>60); GFR (African American) 112 ML/MIN (>60); Globulin 2.9 g/dL (1.3-3.2); Total Protein,Serum 5.6 g/dl (6.3-8.2)
[2024-08-24 07:29] LABS: Calcium 8.4 mg/dl (8.4-10.2); Glucose 94 mg/dl (74-100)
[2024-08-24 08:00] VITALS: BP 136/78; PULSE 94; RESP 18; TEMP 36.5; O2SAT 94
[2024-08-24] MEDS: ASPIRIN 81MG CHEWABLE TABLET 81 MG PO (08:16)
[2024-08-24] MEDS: POLYETHYLENE GLYCOL 3350 17 GM PACKET PO ×2 (08:16→15:21)
[2024-08-24] MEDS: METHOCARBAMOL 500MG TABLET 500 MG PO ×2 (08:16→15:21)
--- NOTE | 2024-08-24 11:51 | HMH.OTEV ---
OT Inpatient Evaluation Rehab OT IP Evaluation Start: 08/21/24 14:52 Freq: ONCE Status: Active Protocol: Document 08/24/24 11:01 [facility] (Rec: 08/24/24 11:51 [facility] [id number]) Rehab OT IP Assessment Subjective History Pt oriented x 3 on arrival. Pt agreeable to engage in therapy evaluation. Pt admitted on 08/19/24 due to fall with a L femur fx. History and physical: An 83-year-old male past medical history of hypertension, BPH presents to the emergency department for evaluation of an accidental ground-level fall. He reports the fall occurred today, resulting in left lower extremity pain and inability to ambulate. He is on aspirin but no anticoagulants. The history was obtained through interactive discussion with the patient, who is deemed reliable. His only anticoagulation is 81 mg aspirin daily. On examination, the patient is hemodynamically stable with blood pressure 171/87, pulse 61, respiratory rate 14, oxygen saturation 98% on room air, afebrile (98.3), and in normal sinus rhythm on the bedside monitor. Physical exam reveals an abrasion behind the left mastoid without bony deformity, normal external auditory canals and tympanic membranes, no cervical spine tenderness, pupils equal and reactive, Bertrand Coma Scale 15, awake, alert, oriented, with intact cranial nerves II? XII. Lungs are clear bilaterally, abdomen soft and nontender without rebound, guarding, or rigidity. The left lower extremity is externally rotated and foreshortened, neurovascularly intact distally with palpable pulses marked by ink pen; range of motion testing was avoided due to obvious injury. The remainder of the exam shows intact limbs with full range of motion. Subjective Prior to being in the hospital , pt lived at home with his . Pt claims prior to his fall he was completely independent with all ADLs and IADLs. He did not use a rolling walker or cane during functional transfers. He also still drove. Objective Patient Orientation Person,Place,Birthday Right Upper Extremity Gross ROM WFL Left Upper Extremity Gross ROM WFL Bed Mobility bed mobility-scooting,bed mobility - supine/sit Assist Level Minimal x 1 (25% assist) Transfer Training Sit/Stand/Step Transfer Assist Level Minimal x 2 (25% assist) Chair Transfer Technique Sit to/from Ambulatory Lower Body Dressing Ability Maximum Assistance Upper Body Dressing Ability Minimal Assistance Rehab OT IP prob,goals,plan Problems Date of Evaluation: 08/24/24 OT IP Problems Bed Mobility,Transfers,Balance ,Self care,Safety Rehab Potential Rehab Potential Good Equipment Needs Assistive Devices Rolling / Wheeled Walker Plan OT intervention Plan Bed Mobility,Transfers,Balance ,Self care,Safety,Therapeutic Exercise OT Plan Frequency Daily Duration LOS Discharge Goals Bed Mobility Ability Standby Assistance Sit to Stand Chair Transfer Ability Minimal x 1 (25% assist) Chair Transfer Ability Minimal x 1 (25% assist) Chair Transfer Technique Sit to/from Ambulatory Chair Transfer Assistive Devices Rolling Walker Feeding Ability Assist with Tray Set Up Lower Body Dressing Ability Moderate Assistance Upper Body Dressing Ability Minimal Assistance Bathing Ability Moderate Assistance,Maximum Assistance Performing Toilet Hygiene Ability Moderate Assistance Overall Commode/Toilet Transfer Ability Minimal Assistance Commode/Toilet Transfer Technique Sit to/from Ambulatory Oral Care Assist Standby Assistance Discharge Plan OT Discharge Plan Pt will continue to be seen for OT services while at [facility]. Pt would benefit most from short term rehab at SNF following hospital stay. Pt is currently hospitalized as well and will not be able to provide assistance. Continued skilled therapy is important in order for patient to improve strength, safety, endurance, ADL independence, and functional transfers to reach PLOF. Eval Complexity Eval Charge Codes 31259 - Moderate Complexity PHYSICIAN CERTIFICATION: I certify the specified therapy services for Salinas Arceo are required, authorized, and reviewed every 30 days.
[2024-08-24] MEDS: MILK OF MAGNESIA 30ML UDC 30 ML PO (11:59)
[2024-08-24] MEDS: BISACODYL 5MG TABLET 10 MG PO (11:59)
[2024-08-24 12:00] VITALS: BP 152/68; PULSE 75; RESP 16; TEMP 36.5; O2SAT 96
--- NOTE | 2024-08-24 12:28 | DIET.NUTRFU ---
Reported no BM in morning rounds, provider added additional meds. She plans to discharge to rehab today
--- NOTE | 2024-08-24 13:52 | EXP.DC.SUM ---
General Admission date:: 08/19/24 HPI HPI HPI: An 83-year-old male past medical history of hypertension, BPH presents to the emergency department for evaluation of an accidental ground-level fall. He reports the fall occurred today, resulting in left lower extremity pain and inability to ambulate. He is on aspirin but no anticoagulants. The history was obtained through interactive discussion with the patient, who is deemed reliable. His only anticoagulation is 81 mg aspirin daily. Patient suffered a left-sided intertrochanteric hip fracture with reverse obliquity orthopedics was consulted regarding definitive treatment options.. Hospital Course Hospital Course Hospital Course: Salinas Arceo is a 83-year-old male who fell at home and sustained left femoral fracture. #Comminuted Left Proximal Femur Fracture #Left inferior pubic rami fracture - Comminuted, impacted left femoral shaft fracture extending to lesser trochanter, with externally rotated, foreshortened left leg. No intervention for pubic rami fracture. Manage conservatively. - Orthopedic surgery consulted, s/p cephalomedullary nailing 08/21/2024. ? PT/OT recommends [facility], [place] graciously accepted patient. - Continue oxycodone 5 mg oral every 4?6 hours as needed for moderate pain; methocarbamol as needed for muscle cramps. ? MiraLAX 1-2 times daily for bowel regimen in setting of opioids. ? Aspirin 81 mg twice daily for DVT prophylaxis for 28 more days. ? Follow-up with orthopedic surgery within 3 weeks #Hypothyroidism ? TSH elevated to 4.85, free T4 low normal. ? Started levothyroxine 25 mcg. #Low vitamin B12 ? Started cyanocobalamin 1000 mcg daily. Hypertension: continue Metoprolol tartrate 25 mg daily Continue PPI daily per home regimen Total time spent on discharge: 32 minutes on chart review, counseling, documentation, and direct care with patient. Exam Data for Last 24 hours Vital signs and Labs for Last 24 Hours: Temp Pulse Resp BP Pulse Ox O2 Del Method 97.7 F 94 H 18 136/78 94 L Room Air 08/24/24 08:00 08/24/24 08:00 08/24/24 08:00 08/24/24 08:00 08/24/24 08:00 08/24/24 11:00 Laboratory Results - last 24 hr 08/24/24 06:19: WBC 8.6, RBC 3.47 L, Hgb 10.5 L, Hct 31.4 L, MCV 90.5, MCH 30.3, MCHC 33.4, RDW 12.9, Plt Count 317, MPV 9.5, Neut % (Auto) 68.6, Lymph % (Auto) 15.9, [place] % (Auto) 8.4, Eos % (Auto) 6.0, Baso % (Auto) 0.7, Neut # (Auto) 5.9, Lymph # (Auto) 1.4, [place] # (Auto) 0.7, Eos # (Auto) 0.5 H, Baso # (Auto) 0.1, Sodium 136, Potassium 3.8, Chloride 109 H, Carbon Dioxide 24, Anion Gap 6.8, BUN 11, Creatinine 0.80, Estimated Creat Clear 64, Estimated GFR 92, Est GFR ( Amer) 112, Glucose 94, Calcium 8.4, Magnesium 2.0, Total Bilirubin 1.2, AST 56, ALT 31 D, Alkaline Phosphatase 93, Total Protein 5.6 L, Albumin 2.7 L, Globulin 2.9, Albumin/Globulin Ratio 0.9 L I & O for Last 24 hours: Intake & Output 08/21/24 08/22/24 08/23/24 08/24/24 23:59 23:59 23:59 23:59 Intake Total 2160 / 2160 1152 / 1392 1332 / 1572 1435 / 1435 Output Total 2125 / 2125 1050 / 1050 700 / 700 650 / 650 Balance 35 / 35 102 / 342 632 / 872 785 / 785 Weight 82.3 kg 80.603 kg 79.515 kg 80.83 kg Results Data Completed and Pending Labs on day of discharge: Labs from last 24 hours 08/24/24 06:19 WBC 8.6 RBC 3.47 L Hgb 10.5 L Hct 31.4 L MCV 90.5 MCH 30.3 MCHC 33.4 RDW 12.9 Plt Count 317 MPV 9.5 Neut % (Auto) 68.6 Lymph % (Auto) 15.9 [place] % (Auto) 8.4 Eos % (Auto) 6.0 Baso % (Auto) 0.7 Neut # (Auto) 5.9 Lymph # (Auto) 1.4 [place] # (Auto) 0.7 Eos # (Auto) 0.5 H Baso # (Auto) 0.1 Sodium 136 Potassium 3.8 Chloride 109 H Carbon Dioxide 24 Anion Gap 6.8 BUN 11 Creatinine 0.80 Estimated Creat Clear 64 Estimated GFR 92 Est GFR ( Amer) 112 Glucose 94 Calcium 8.4 Magnesium 2.0 Total Bilirubin 1.2 AST 56 ALT 31 D Alkaline Phosphatase 93 Total Protein 5.6 L Albumin 2.7 L Globulin 2.9 Albumin/Globulin Ratio 0.9 L DS: Diagnosis Discharge Diagnosis (1) Fracture of hip: Status: Acute Code(s): S72.009A - Fracture of unspecified part of neck of unspecified femur, initial encounter for closed fracture Qualifiers: Encounter type: initial encounter Fracture type: closed Laterality: left Qualified Code(s): S72.002A - Fracture of unspecified part of neck of left femur, initial encounter for closed fracture (2) Closed intertrochanteric fracture of left hip: Status: Acute Code(s): S72.142A - Displaced intertrochanteric fracture of left femur, initial encounter for closed fracture Qualifiers: Encounter type: initial encounter Fracture alignment: displaced Qualified Code(s): S72.142A - Displaced intertrochanteric fracture of left femur, initial encounter for closed fracture Meds Home Medications and Allergies Home Medications ?Medication ?Instructions ?Recorded ?Confirmed ?Type aspirin 81 mg chewable tablet 81 mg PO DAILY 06/26/18 08/20/24 History metoprolol tartrate 25 mg tablet 25 mg PO DAILY 06/26/18 08/20/24 History lansoprazole 30 mg capsule,delayed 30 mg PO DAILY 02/02/22 08/20/24 History release aspirin 81 mg chewable tablet 81 mg PO BID 28 days #56 tabs 08/24/24 Rx cyanocobalamin (vitamin B-12) 1,000 mcg PO DAILY #30 caps 08/24/24 Rx 1,000 mcg capsule hydrocodone 5 mg-acetaminophen 325 2 tab PO Q4HP PRN Moderate To 08/24/24 Rx mg tablet Severe Pain (4-10) 3 days #18 tabs levothyroxine 25 mcg tablet 25 mcg PO DAILYDM 30 days #30 tabs 08/24/24 Rx (Synthroid) methocarbamol 500 mg tablet 500 mg PO TID PRN Muscle cramps 5 08/24/24 Rx days #15 tabs polyethylene glycol 3350 17 gram 17 g PO DAILY 30 days #30 ea 08/24/24 Rx oral powder packet (HealthyLax) New Prescriptions to Start Prescriptions: aspirin Luther,Juliocesar cyanocobalamin (vitamin B-12) Juliocesar Sloan hydrocodone-acetaminophen Luther,Juliocesar levothyroxine [Synthroid] Carmengiovannialo,Juliocesar methocarbamol Luther,Juliocesar polyethylene glycol 3350 [HealthyLax] Juliocesar Sloan Allergies Allergy/AdvReac Type Severity Reaction Status Date / Time No Known Allergies Allergy Unverified 08/20/24 07:18 Discharge Plan Disposition Patient Disposition: er SNF Condition: Fair Discharge Order Discharge Orders: Discharge Order (Routine); Ordered 08/24/24 Ordered By: Juliocesar Sloan Follow up Plan Follow up with: Bennie Murcia DO [Staff Physician] - 09/07/24 Prescriptions/Medication Reconciliation: New methocarbamol 500 mg Tablet 500 mg PO TID PRN (Reason: Muscle cramps) 5 Days Qty: 15 0RF polyethylene glycol 3350 [HealthyLax] 17 gram Powder In Packet 17 g PO DAILY 30 Days Qty: 30 0RF hydrocodone-acetaminophen 5-325 mg Tablet 2 tab PO Q4HP PRN (Reason: Moderate To Severe Pain (4-10)) 3 Days Qty: 18 0RF levothyroxine [Synthroid] 25 mcg Tablet 25 mcg PO DAILYDM 30 Days Qty: 30 0RF aspirin 81 mg Tablet,Chewable 81 mg PO BID 28 Days Qty: 56 0RF cyanocobalamin (vitamin B-12) 1,000 mcg capsule 1,000 mcg PO DAILY Qty: 30 0RF Continued metoprolol tartrate 25 mg tablet 25 mg PO DAILY lansoprazole 30 mg capsule,delayed release(DR/EC) 30 mg PO DAILY Held aspirin 81 mg tablet,chewable 81 mg PO DAILY Hold Instructions: Resume on 09/24/24. Problem Reconciliation Problems Reviewed?: Yes Patient Discharge Instructions Patient Instructions: Femoral Fracture, DI for Hip Replacement, DI for Surgical Site Infection, Catheter-Associated Urinary Tract Infection Print Language: Libyan Providers Primary Care Provider: Kendall West Admit Provider: Frank Quinones Attending Provider: Frank Quinones
--- NOTE | 2024-08-25 09:55 | P.PNANES_ITS ---
[facility] Anesthesia Record Part II Anesthesia Record Part II Discharge Time: 18:35 Destination: Second Floor PACU nurse assessment reviewed?: Yes Patient Condition:: Good Anesthesia Complications:: None Swallowing reflex intact?: Yes Airway Patency: Patent Cyanosis?: No Blood Pressure: 156/65 SaO2: 95 Respiratory Rate: 18 Pulse Rate: 94 Temperature: 98 F Mental Status: Alert & Oriented Pain level:: 2 Nausea and/or vomitting:: None Intake, IV Amount: 0 Hydration: Adequate
[2024-08-25 10:01] VITALS: BP 156/65; PULSE 94; RESP 18; TEMP 36.6; O2SAT 95
== END 2024-08-24 17:21 | DRG 956 ==
LOC: ER 21:33 → 2ND 21:56
PROVIDERS: Nurse Practitioner Family; Orthopaedic Surgery; Physician Assistant; Student in an Organized Health Care Education/Training Program; Admitting Provider Internal Medicine Adolescent Medicine; Emergency Provider Student in an Organized Health Care Education/Training Program; PCP Family Medicine; Visit Provider Internal Medicine Adolescent Medicine
PROC: 0QS736Z Reposition Left Upper Femur with Intramedullary Internal Fixation Device, Percutaneous Approach (ICD-10-PCS; CPT 27245; principal; 2024-08-21 14:00)
DX: S72.352A Displaced comminuted fracture of shaft of left femur, initial encounter for closed fracture (principal); S32.592A Other specified fracture of left pubis, initial encounter for closed fracture; S72.122A Displaced fracture of lesser trochanter of left femur, initial encounter for closed fracture; R97.20 Elevated prostate specific antigen [PSA]; I10 Essential (primary) hypertension; D64.9 Anemia, unspecified; W01.198A Fall on same level from slipping, tripping and stumbling with subsequent striking against other object, initial encounter; Y92.010 Kitchen of single-family (private) house as the place of occurrence of the external cause; Z87.891 Personal history of nicotine dependence; Z79.899 Other long term (current) drug therapy; Z79.82 Long term (current) use of aspirin; N28.1 Cyst of kidney, acquired; E03.9 Hypothyroidism, unspecified
CPT/HCPCS: 36415; 70450; 71045; 72125; 72192; 73502; 73552; 76000; 80048; 80053; 80061; 82607; 82728; 82746; 83036; 83540; 83550; 83735; 84100; 84439; 84443; 85025; 85610; 97110; 97116; 97162; 97166; 97530; 99285; C1713; C1769; J0690; J1650; J2270; J2704; J3360; J7120

== ENCOUNTER 2024-08-25 01:55 | Emergency (ER) | payer MEDICARE, BC, SELFPAY ==
[2024-08-25] VITALS (9 sets, daily range): BP systolic 129–183; BP diastolic 66–113; PULSE 72–93; RESP 18–20; TEMP 36.8–37; O2SAT 92–96; BMI 30.9
--- NOTE | 2024-08-25 01:55 | PC.NURSE ---
1023 ml urine in bladder on bladder scan.
--- NOTE | 2024-08-25 02:03 | CT_ITS ---
PROCEDURE INFORMATION: Exam: CT Chest Without Contrast; Diagnostic Exam date and time: 08/25/2024 2:38 AM Age: 83 years old Clinical indication: Injury or trauma; Additional info: Fall TECHNIQUE: Imaging protocol: Diagnostic computed tomography of the chest without contrast. Radiation optimization: All CT scans at this facility use at least one of these dose optimization techniques: automated exposure control; mA and/or kV adjustment per patient size (includes targeted exams where dose is matched to clinical indication); or iterative reconstruction. COMPARISON: CR XR CHEST PORTABLE 08/19/2024 8:35 PM FINDINGS: Lungs: Minimal atelectatic changes of the lung bases. Pleural spaces: Unremarkable. No pneumothorax. No pleural effusion. Heart: Heart is large in size. Coronary arteries: There are coronary artery calcifications. Lymph nodes: Unremarkable. No enlarged lymph nodes. Vasculature: Mild atherosclerosis of the aorta. No aneurysm. Bones/joints: Old bilateral rib fractures. Old sternal fracture. Degenerative changes of the spine. Soft tissues: Unremarkable. IMPRESSION: No acute findings.
--- NOTE | 2024-08-25 02:03 | CT_ITS ---
PROCEDURE INFORMATION: Exam: CT Abdomen And Pelvis Without Contrast Exam date and time: 08/25/2024 2:41 AM Age: 83 years old Clinical indication: Injury or trauma; Additional info: Fall TECHNIQUE: Imaging protocol: Computed tomography of the abdomen and pelvis without contrast. Radiation optimization: All CT scans at this facility use at least one of these dose optimization techniques: automated exposure control; mA and/or kV adjustment per patient size (includes targeted exams where dose is matched to clinical indication); or iterative reconstruction. COMPARISON: CT BONY PELVIS 08/25/2024 2:33 AM FINDINGS: Lungs: Minimal atelectatic changes of the lung bases. Heart: Heart is large in size. Coronary arteries: There are coronary artery calcifications. Liver: Normal. No mass. Gallbladder and biliary ducts: Normal. No calcified stones. No ductal dilation. Pancreas: Normal. No ductal dilation. Spleen: There are granulomas of the spleen. Adrenal glands: Normal. No mass. Kidneys and ureters: Bilateral benign-appearing small and large renal cysts. Largest right kidney cyst measures up to 4.8 cm and on the left 7 cm. No hydronephrosis or stones. Stomach and bowel: Moderate-sized hiatal hernia containing a portion of the stomach. Diverticulosis. Appendix: Normal appendix. Intraperitoneal space: Unremarkable. No free air. No significant fluid collection. Vasculature: Infrarenal abdominal aorta is dilated measuring up to 2.8 cm. There is moderate atherosclerosis. Lymph nodes: Unremarkable. No enlarged lymph nodes. Urinary bladder: Bladder decompressed by a Stokes. Reproductive: Unremarkable as visualized. Bones/joints: DJD. Mild wedging of the L2. Status post fixation of a left femoral fracture. Soft tissues: Left thigh postsurgical changes with edema and small bubbles of air. Skin rylee are seen. vertebral body. IMPRESSION: Age indeterminate compression of L2. Left femoral fracture with fixation hardware. COMMENTS: Consistent with the [place] [employer]'s Incidental Findings Committee white paper (J Am Jesus Radiol 2018): Any incidental renal lesion less than 1 cm or classified as too small to characterize, or any incidental cystic renal lesion characterized as simple-appearing, is likely benign. No follow-up imaging is recommended for these lesions per consensus recommendations based on imaging criteria.
--- NOTE | 2024-08-25 02:04 | CT_ITS ---
PROCEDURE INFORMATION: Exam: CT Head Without Contrast Exam date and time: 08/25/2024 2:22 AM Age: 83 years old Clinical indication: Injury or trauma; Additional info: Trauma, critical injury suspected TECHNIQUE: Imaging protocol: Computed tomography of the head without contrast. Radiation optimization: All CT scans at this facility use at least one of these dose optimization techniques: automated exposure control; mA and/or kV adjustment per patient size (includes targeted exams where dose is matched to clinical indication); or iterative reconstruction. COMPARISON: CT HEAD/BRAIN WO CON 08/19/2024 8:43 PM FINDINGS: Brain: Mild atrophy and mild periventricular white matter disease. There is no area of intraparenchymal or extra-axial hemorrhage present. There is no focal mass. There is no midline shift. The cheng-white matter junction is intact. Cerebral ventricles: There is mild dilatation of ventricles. Paranasal sinuses: Visualized sinuses are unremarkable. No fluid levels. Mastoid air cells: Visualized mastoid air cells are well aerated. Bones: Unremarkable. No acute fracture. Soft tissues: The soft tissues are unremarkable. IMPRESSION: 1. Mild atrophy and mild periventricular white matter disease. 2. Otherwise unremarkable examination of the brain. There is no acute intracranial abnormality.
--- NOTE | 2024-08-25 02:04 | CT_ITS ---
PROCEDURE INFORMATION: Exam: CT Thoracic Spine Without Contrast Exam date and time: 08/25/2024 2:27 AM Age: 83 years old Clinical indication: Injury or trauma; Additional info: Fall, back pain TECHNIQUE: Imaging protocol: Computed tomography of the thoracic spine without contrast. Radiation optimization: All CT scans at this facility use at least one of these dose optimization techniques: automated exposure control; mA and/or kV adjustment per patient size (includes targeted exams where dose is matched to clinical indication); or iterative reconstruction. COMPARISON: CT CERVICAL SPINE WO CON 08/25/2024 2:24 AM FINDINGS: Bones/joints: There are moderate degenerative changes of the spine. Endplate osteophytes and facet arthropathy. Multilevel disc space narrowing. T8 superior endplate Schmorl's node formation. No severe spinal canal narrowing. No fracture or dislocation. Soft tissues: Unremarkable. Pleural spaces: Bilateral pleural calcifications. 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
--- NOTE | 2024-08-25 02:04 | CT_ITS ---
PROCEDURE INFORMATION: Exam: CT Lumbar Spine Without Contrast Exam date and time: 08/25/2024 2:30 AM Age: 83 years old Clinical indication: Injury or trauma; Additional info: Fall, back pain TECHNIQUE: Imaging protocol: Computed tomography of the lumbar spine without contrast. Radiation optimization: All CT scans at this facility use at least one of these dose optimization techniques: automated exposure control; mA and/or kV adjustment per patient size (includes targeted exams where dose is matched to clinical indication); or iterative reconstruction. COMPARISON: CT LUMBAR SPINE WO CON 08/25/2024 2:30 AM FINDINGS: Bones/joints: There are moderate degenerative changes of the spine. Endplate osteophytes and facet arthropathy. Multilevel disc space narrowing. There is mild anterior compression of the L2 vertebral body with less than 20% loss of height. The posterior cortex is intact. No subluxation or dislocation. Moderate canal stenosis at L1-L2. Severe canal stenosis at L2-L3 and L3-L4. Vasculature: Infrarenal abdominal aorta is dilated measuring 2.7 cm Soft tissues: Unremarkable. IMPRESSION: 1. Age indeterminate mild compression fracture of L2. 2. Dilated abdominal aorta.
--- NOTE | 2024-08-25 02:04 | CT_ITS ---
PROCEDURE INFORMATION: Exam: CT Cervical Spine Without Contrast Exam date and time: 08/25/2024 2:24 AM Age: 83 years old Clinical indication: Injury or trauma; Additional info: Trauma, critical injury suspected TECHNIQUE: Imaging protocol: Computed tomography of the cervical spine without contrast. Radiation optimization: All CT scans at this facility use at least one of these dose optimization techniques: automated exposure control; mA and/or kV adjustment per patient size (includes targeted exams where dose is matched to clinical indication); or iterative reconstruction. COMPARISON: CT CERVICAL SPINE WO CON 08/19/2024 8:45 PM FINDINGS: Bones: No acute fracture. Normal alignment. No significant disc bulge or herniation. No severe spinal canal stenosis. No significant neural foraminal narrowing. Lungs: Lung apices are normal. Soft tissues: Unremarkable. IMPRESSION: No evidence for significant traumatic injury of the cervical spine.
--- NOTE | 2024-08-25 02:04 | CT_ITS ---
PROCEDURE INFORMATION: Exam: CT Pelvis Without Contrast, Skeleton Exam date and time: 08/25/2024 2:33 AM Age: 83 years old Clinical indication: Injury or trauma; Additional info: Fall, recent hip fx/surgery TECHNIQUE: Imaging protocol: Computed tomography of the pelvis without contrast. Exam focused on the skeleton. Radiation optimization: All CT scans at this facility use at least one of these dose optimization techniques: automated exposure control; mA and/or kV adjustment per patient size (includes targeted exams where dose is matched to clinical indication); or iterative reconstruction. COMPARISON: CT BONY PELVIS 08/19/2024 8:48 PM FINDINGS: Bones/joints: Degenerative changes of the lower lumbar spine. Moderate right hip joint space narrowing. Left femoral fixation hardware. Comminuted acute fracture of the proximal left femur spanning the trochanters and partially extending into the proximal diaphysis. There is displacement of fracture fragments. Soft tissues: Edema around the fracture site. Small bubbles of air in the deep soft tissue structures of the left thigh. There is left thigh subcutaneous edema. Left lateral skin rylee are also seen. IMPRESSION: Status post fixation of a proximal left femoral fracture. Soft tissue postsurgical changes.
--- NOTE | 2024-08-25 02:09 | HMH.EDGENADL ---
Discharge Plan Disposition Patient Disposition: Home, Self-Care Prescriptions Prescriptions: No Action aspirin 81 mg tablet,chewable 81 mg PO DAILY metoprolol tartrate 25 mg tablet 25 mg PO DAILY lansoprazole 30 mg capsule,delayed release(DR/EC) 30 mg PO DAILY methocarbamol 500 mg Tablet 500 mg PO TID PRN (Reason: Muscle cramps) 5 Days Qty: 15 0RF polyethylene glycol 3350 [HealthyLax] 17 gram Powder In Packet 17 g PO DAILY 30 Days Qty: 30 0RF hydrocodone-acetaminophen 5-325 mg Tablet 2 tab PO Q4HP PRN (Reason: Moderate To Severe Pain (4-10)) 3 Days Qty: 18 0RF levothyroxine [Synthroid] 25 mcg Tablet 25 mcg PO DAILYDM 30 Days Qty: 30 0RF aspirin 81 mg Tablet,Chewable 81 mg PO BID 28 Days Qty: 56 0RF cyanocobalamin (vitamin B-12) 1,000 mcg capsule 1,000 mcg PO DAILY Qty: 30 0RF Referrals Follow up/Referrals: Provider,Referral, MD [Primary Care Provider] - See instructions Activity Restrictions/Add. Instructions Additional Instructions/Restrictions: Blood work is unchanged from discharge. Full CT scans show no new acute traumatic injuries, the hardware appears to be well-positioned and intact. Patient did have urinary retention, may be secondary to pain and recumbent position. A Stokes was placed, recommend removing it and doing a voiding trial in the next couple of days. Clinical Impressions Clinical Impression: Hip pain, Fall, Back pain, Acute urinary retention Print Language Print Language: Sudanese Discharge ED Provider: Oj Lala Adult HPI General Chief complaint: PAIN Stated complaint: Fall/hip pain Time Seen by Provider: 08/25/24 02:00 Mode of Arrival: EMS Source of Information: Patient Description of Symptoms (Recalled from ER Triage Doc. by RN): Pt had recent hip surgery released to [facility] today Decided to try to walk to the bathroom and fell now having left hip pain History of Present Illness HPI narrative: 83-year-old male with history of recent pelvic/hip fracture presents for recurrent fall. He was discharged to a nursing facility yesterday and tonight attempted to get up out of bed and fell while trying to go to the bathroom. Patient is complaining of pain in his left hip and in his back. He is a generally poor historian. Reports that he feels like he has to pee. Patient is on aspirin. Patient denies hitting his head, denies loss of consciousness, denies chest pain abdominal pain. Related Data Home Medications ?Medication ?Instructions ?Recorded ?Confirmed aspirin 81 mg chewable tablet 81 mg PO DAILY 06/26/18 08/20/24 metoprolol tartrate 25 mg tablet 25 mg PO DAILY 06/26/18 08/20/24 lansoprazole 30 mg capsule,delayed 30 mg PO DAILY 02/02/22 08/20/24 release Previous Rx's ?Medication ?Instructions ?Recorded aspirin 81 mg chewable tablet 81 mg PO BID 28 days #56 tabs 08/24/24 cyanocobalamin (vitamin B-12) 1,000 mcg PO DAILY #30 caps 08/24/24 1,000 mcg capsule hydrocodone 5 mg-acetaminophen 325 2 tab PO Q4HP PRN Moderate To 08/24/24 mg tablet Severe Pain (4-10) 3 days #18 tabs levothyroxine 25 mcg tablet 25 mcg PO DAILYDM 30 days #30 tabs 08/24/24 (Synthroid) methocarbamol 500 mg tablet 500 mg PO TID PRN Muscle cramps 5 08/24/24 days #15 tabs polyethylene glycol 3350 17 gram 17 g PO DAILY 30 days #30 ea 08/24/24 oral powder packet (HealthyLax) Allergies Allergy/AdvReac Type Severity Reaction Status Date / Time No Known Allergies Allergy Unverified 08/20/24 07:18 [facility] Disclaimer: The information contained in this section may have been updated after the patient was seen, as this information can be updated by other users. Medical History (Updated 08/25/24 @ 03:34 by Oj Lala MD) Hypertension Social History Smoking Status: Never smoker alcohol intake: never substance use type: denies use current occupational status: retired Travel in the last 8 weeks: None household members: spouse housing: house Other Medical History Have you received the Flu Vaccine for this season: No Have you received the Pneumonia Vaccine: No ROS Obtained: Yes All systems reviewed & no additional complaints except as documented Physical Exam General General appearance: alert and in no apparent distress Head Head exam: atraumatic and normocephalic Eye Eye exam: Present normal appearance, PERRL and EOMI ENT ENT exam: Present normal oropharynx and normal external ear exam Neck Neck exam: Present normal inspection and full ROM; Absent tenderness Chest Chest inspection: Present normal inspection and symmetric chest wall rise; Absent tenderness Respiratory Respiratory exam: Present normal lung sounds bilaterally; Absent respiratory distress Cardiovascular Cardiovascular exam: Present regular rate and normal rhythm Abdominal Exam Abdominal exam: Present soft; Absent distention, tenderness or guarding Extremities Exam Extremities exam: Present edema; Absent normal inspection (Tenderness over the left hip, visualized incisions are well-appearing, edema throughout the left leg consistent with recent surgery. Patient has normal strength and sensation in bilateral lower extremities.) or joint swelling Back Exam Back exam: Present normal inspection; Absent tenderness Neurological Exam Neurological exam: Present alert and oriented X3 (Poor historian); Absent motor sensory deficit Psychiatric Psychiatric exam: Present normal affect and normal mood Skin Skin exam: Present warm, dry and normal color Lymphatic Lymphatic Findings: no adenopathy Medical Decision Making Medical Records Medical records reviewed: Yes I reviewed the patient's medical records. Screening: Per USPSTF and CDC recommendations, given the prevalence of disease in our region, it is our hospital?s policy to screen for HIV and viral Hepatitis for all patients aged 18 and over and those with ongoing risk factors. Rony Inquiry Pt receiving controlled substance: No Rony was queried for this patient: No Vital Signs: 08/25/24 01:50 08/25/24 01:51 08/25/24 02:00 Temperature 98.6 F Temperature Source Oral Pulse Rate 91 H 81 Pulse Rate [Right Brachial] 93 H Respiratory Rate 20 Blood Pressure 183/113 H 169/95 H Blood Pressure [Right Arm] 183/113 H Blood Pressure Mean [Right Arm] 136 Blood Pressure Source [Right Arm] Automatic Cuff Blood Pressure Position Blood Pressure Position [Right Arm] Sitting 02 Sat by Pulse Oximetry 96 94 L 95 Oxygen Delivery Method Room Air Room Air Room Air 08/25/24 02:07 08/25/24 02:57 08/25/24 03:01 Temperature Temperature Source Pulse Rate 82 76 77 Pulse Rate [Right Brachial] Respiratory Rate Blood Pressure 180/86 H 143/71 H 135/66 Blood Pressure [Right Arm] Blood Pressure Mean [Right Arm] Blood Pressure Source [Right Arm] Blood Pressure Position Blood Pressure Position [Right Arm] 02 Sat by Pulse Oximetry 94 L 94 L 92 L Oxygen Delivery Method Room Air Room Air Room Air 08/25/24 03:10 08/25/24 03:31 08/25/24 03:56 Temperature 98.3 F Temperature Source Pulse Rate 77 72 74 Pulse Rate [Right Brachial] Respiratory Rate 18 Blood Pressure 154/82 H 129/68 129/68 Blood Pressure [Right Arm] Blood Pressure Mean [Right Arm] Blood Pressure Source [Right Arm] Blood Pressure Position Sitting Blood Pressure Position [Right Arm] 02 Sat by Pulse Oximetry 94 L 92 L Oxygen Delivery Method Room Air Room Air Room Air Lab Data Lab results reviewed: Yes I reviewed the patient's lab results. Lab Results 08/25/24 02:05: Urine Color Yellow, Urine Appearance Clear, Urine pH 7.0, Ur Specific [place] 1.010, Urine Protein Negative, Urine Glucose (UA) Negative, Urine Ketones Negative, Urine Blood 1+ A, Urine Nitrate Negative, Urine Bilirubin Negative, Urine Urobilinogen 0.2, Ur Leukocyte Esterase Negative, Urine RBC 10-20, Urine WBC Occasional 08/25/24 03:05: WBC 10.6, RBC 3.52 L, Hgb 10.8 L, Hct 31.9 L, MCV 90.6, MCH 30.7, MCHC 33.9, RDW 13.2, Plt Count 346, MPV 9.2, Neut % (Auto) 79.5, Lymph % (Auto) 11.4, B[place] % (Auto) 7.8, Eos % (Auto) 0.5, Baso % (Auto) 0.4, Neut # (Auto) 8.4 H, Lymph # (Auto) 1.2, [place] # (Auto) 0.8, Eos # (Auto) 0.1, Baso # (Auto) 0.0, PT 10.7, INR 0.95, Sodium 137, Potassium 4.4, Chloride 108 H, Carbon Dioxide 27, Anion Gap 6.4, BUN 13, Creatinine 0.90, Estimated Creat Clear 65, Estimated GFR 81, Est GFR ( Amer) 98, Glucose 109 H, Calcium 8.6, Total Bilirubin 1.6 H, AST 57, ALT 44 D, Alkaline Phosphatase 90, Total Protein 6.0 L, Albumin 2.8 L, Globulin 3.2, Albumin/Globulin Ratio 0.9 L, HCV Ab DRAKE w/Rflx PCR Qn Negative 04/22/25 03:05 08/25/24 03:05 Orders (Tests/Meds): ED MEDICATIONS Discontinued Medications Generic Name Dose Route Start Last Admin Trade Name Ludwin PRN Reason Stop Dose Admin Acetaminophen 1,000 mg 08/25/24 03:00 08/25/24 03:05 Acetaminophen 500mg Tab PO 08/25/24 03:01 1,000 mg ONCE ONE Administration Ketorolac Tromethamine 15 mg 08/25/24 03:00 08/25/24 03:05 Ketorolac 30mg/Ml Vial IV 08/25/24 03:01 15 mg ONCE ONE Administration Morphine Sulfate 2 mg 08/25/24 03:00 08/25/24 03:06 Morphine 2mg/Ml Syringe IV 08/25/24 03:01 2 mg ONCE ONE Administration ORDERS Category Date Time Status CT abdomen pelvis wo con Stat Cat Scan 08/25/24 02:[address] bony pelvis Stat Cat Scan 08/25/24 02:[address] cervical spine wo con Stat Cat Scan 08/25/24 02:[address] chest wo con Stat Cat Scan 08/25/24 02:[address] head/brain wo con Stat Cat Scan 08/25/24 02:[address] lumbar spine wo con Stat Cat Scan 08/25/24 02:[address] thoracic spine wo con Stat Cat Scan 08/25/24 02:04 Completed Femur XR left 2 views [XR femur LT 2V] Stat Exams 08/25/24 02:43 Completed CBC w/Auto Diff [Complete Blood Count Auto Diff] Stat Lab 08/25/24 03:05 Completed CMP [Comprehensive Metabolic Panel] Stat Lab 08/25/24 03:05 Completed HIV Combo Routine Lab 08/25/24 03:05 Received Hepatitis C Ab Qual. W/ RFX Routine Lab 08/25/24 03:05 Completed Prothrombin Time INR Stat Lab 08/25/24 03:05 Completed UA [Urinalysis and Microscopic] Stat Lab 08/25/24 02:05 Completed Medical Decision Narrative: 83-year-old male, discharged yesterday after orthopedic intervention for intertrochanteric femur fracture presents with worsening pain after a mechanical fall at the nursing facility. History was obtained via interactive discussion with patient, EMS, chart review. On arrival, patient is [afebrile, hemodynamically stable, satting appropriately, alert, oriented x3, GCS 15], moving all extremities spontaneously. Full physical exam performed and significant for well appearing incision sites, pelvic and hip tenderness on exam, normal strength and sensation in the bilateral lower extremities, no trauma to the head. Patient has postvoid residual bladder volume of thousand. Differential includes but is not limited to hardware failure, fracture, intracranial trauma intrathoracic trauma abdominal trauma spine trauma extremity trauma.. Patient was given Tylenol, Toradol, morphine for symptomatic management and correction of underlying abnormalities. Workup initiated including noncontrast trauma scans including head neck T and L-spine chest abdomen pelvis. A Stokes was placed with 1 L of urine returned. On re-evaluation, patient [remains afebrile, HD stable.] Laboratory workup independently interpreted by me and significant for no significant changes from discharge labs. Imaging independently interpreted by me and significant for stable appearing hardware, no intracranial bleeding, no acute fractures noted in the spine, no intrathoracic or intra-abdominal trauma noted. See radiology read for full review of final results. Admission was considered, but deemed unnecessary due to no new traumatic injuries. Given patient history, exam and workup, patient's presentation most likely represents fall with exacerbation of pain due to prior fracture without hardware failure. Patient also has some urinary retention, he reports that he has had issues with urinary retention sometimes in the past. He has normal strength and sensation in the bilateral lower extremities and no acute spinal fracture to suggest traumatic cord compression/cauda equina. No focal tenderness over the low back. Patient was discharged to nursing facility with Stokes in place with instructions to remove it and trial voiding in the next day or 2. Return precautions given. Procedures Risk/Benefits of Procedure(s) Were Explained: Yes Critical Care Critical Care Time Critical Care Time: No
--- NOTE | 2024-08-25 02:43 | XR_ITS ---
PROCEDURE INFORMATION: Exam: XR Left Femur Exam date and time: 08/25/2024 2:46 AM Age: 83 years old Clinical indication: Injury or trauma; Fall; Additional info: Fall, recent repair TECHNIQUE: Imaging protocol: Radiologic exam of the left femur. Views: 2 views. COMPARISON: CR XR FEMUR LT 2V 08/19/2024 8:35 PM FINDINGS: Bones/joints: Comminuted left femoral intertrochanteric fracture with displacement of fracture fragments. Status post fixation. Soft tissues: Lateral skin rylee. Hip joint space narrowing. No subluxation or dislocation. Moderate degenerative changes of the knee with joint space narrowing. IMPRESSION: Status post fixation of a left fracture.
--- NOTE | 2024-08-25 02:57 | PC.NURSE ---
1100 ml drained from bowden bag. clear/dark yellow urine.
[2024-08-25] MEDS: ACETAMINOPHEN 500MG TAB 1000 MG PO (03:05)
[2024-08-25] MEDS: KETOROLAC 30MG/ML VIAL 15 MG IV (03:05)
[2024-08-25] MEDS: MORPHINE 2MG/ML SYRINGE 2 MG IV (03:06)
[2024-08-25 03:16] LABS: Basophils % 0.4 % (0.1-2.0); Eosinophils # 0.1 Kmm3 (0.0-0.4); Eosinophils % 0.5 % (0.1-12.0); Hematocrit 31.9 % (42.0-52.0); Hemoglobin 10.8 g/dL (14.1-18.0); Lymphocytes # 1.2 K/mm3 (0.7-4.5); Lymphocytes % 11.4 % (10-50); Mean Corpuscular HGB Conc 33.9 g/dL (31.8-35.4); Mean Corpuscular Hemoglobin 30.7 pg (27.0-31.2); Mean Corpuscular Volume 90.6 fl (80-94); Mean Platelet Volume 9.2 fl (7.4-10.4); Monocytes # 0.8 K/mm3 (0.1-1.0); Monocytes % 7.8 % (1.7-9.3); Neutrophils # 8.4 K/mm3 (1.8-7.8); Neutrophils % 79.5 % (37.0-80.0); Nucleated Red Blood Cells # 0 10^3/uL; Nucleated Red Blood Cells % 0 %; Platelet Count 346 K/mm3 (142-424); Red Blood Count 3.52 M/mm3 (4.60-6.20); Red Cell Distribution Width 13.2 % (11.5-17.5); Red Cell Distribution Width-SD 42.8 fL; White Blood Count 10.6 K/mm3 (4.8-10.8)
[2024-08-25 03:17] LABS: Appearance,Urine CLEAR (Clear); Bilirubin,Urine Negative (Negative); Blood, Urine 1+ (Negative); Color,Urine YELLOW (Yellow); Glucose,Urine (UA) Negative (Negative); Ketones,Urine Negative (Negative); Leukocyte Esterase,Urine Negative (Negative); Microscopic, Urine URINE MICROSCOPIC (MICROSCOPIC); Nitrate,Urine Negative (Negative); Protein,Urine Negative (Negative); Urobilinogen,Urine 0.2 EU/dl (0.2)
[2024-08-25 03:22] LABS: Alanine Aminotransferase 44 U/L (12-78); Albumin Level 2.8 g/dl (3.5-5.0); Albumin/Globulin Ratio 0.9 (1.1-1.8); Alkaline Phosphatase 90 U/L (38-126); Anion Gap 6.4 mEq/L (5-15); Aspartate Amino Transferase 57 U/L (17-59); Bilirubin,Total 1.6 mg/dl (0.2-1.3); Blood Urea Nitrogen 13 mg/dl (9-20); Calcium 8.6 mg/dl (8.4-10.2); Carbon Dioxide 27 mmol/L (22.0-30.0); Chloride 108 mmol/L (98-107); Creatinine Clearance Estimated 65 mL/min (50-200); Estimated Glomerular Filt Rate 81 ml/min (>60); GFR (African American) 98 ML/MIN (>60); Globulin 3.2 g/dL (1.3-3.2); Glucose 109 mg/dl (74-100); Potassium 4.4 mmoL/L (3.5-5.1); Sodium 137 mmol/L (136-145)
[2024-08-25 03:23] LABS: INR 0.95 (0.9-1.1); Prothrombin Time 10.7 seconds (10.1-12.5)
[2024-08-25 03:27] LABS: WBC,Urine Occasional #/hpf (0-3)
--- NOTE | 2024-08-25 03:49 | PC.NURSE ---
EMS notified of need for transport
--- NOTE | 2024-08-25 04:01 | PC.NURSE ---
attempting to call report back to [facility].
[2024-08-25 04:15] LABS: Hepatitis C Ab Qual. W/ RFX NEGATIVE (Negative)
[2024-08-27 11:16] LABS: HIV Combo NEGATIVE (Negative)
== END 2024-08-25 04:04 | disposition home or self-care (01) ==
PROVIDERS: Emergency Provider Emergency Medicine
DX: M25.552 Pain in left hip (principal); R33.8 Other retention of urine; M54.9 Dorsalgia, unspecified; Z11.59 Encounter for screening for other viral diseases; Z11.4 Encounter for screening for human immunodeficiency virus [HIV]; W19.XXXA Unspecified fall, initial encounter
CPT/HCPCS: 51702; 70450; 71250; 72125; 72128; 72131; 72192; 73552; 74176; 80053; 81001; 85025; 85610; 86803; 87389; 96374; 96375; 99285; J1885; J2270

== ENCOUNTER 2024-09-08 14:49 | Outpatient (CLI) | payer MEDICARE, BC, SELFPAY ==
--- NOTE | 2024-09-08 14:54 | XR_ITS ---
FINAL REPORT CLINICAL HISTORY: left hip fx fall COMPARISON: None FINDINGS: AP and frog leg views of the left hip were obtained. There has been ORIF of a comminuted left hip fracture, with hardware intact. There is degenerative change in the hips bilaterally. No dislocation is identified. Soft tissues are unremarkable. IMPRESSION: Post-ORIF comminuted left hip fracture, with intact hardware. Reviewed, Interpreted and Dictated by Vanesa Dawn MD Transcribed by Lindsey Driver Authenticated and . [facility]
--- NOTE | 2024-09-08 15:17 | XR_ITS ---
FINAL REPORT TECHNIQUE: 4 views left femur CLINICAL HISTORY: fall, hip fx COMPARISON: None FINDINGS: LEFT FEMUR: 4 images of the left femur were obtained. There is an intramedullary stephen in the left femur, and there has been ORIF of a left hip fracture. The hardware is intact. The joint spaces are intact. There is no soft tissue abnormality identified. IMPRESSION: Intramedullary stephen and ORIF of a proximal left hip fracture, with intact hardware. Reviewed, Interpreted and Dictated by Vanesa Dawn MD Transcribed by Lindsey Driver Authenticated and [facility]
== END 2024-09-08 23:59 | disposition home or self-care (01) ==
LOC: RAD 14:50
PROVIDERS: PCP Family Medicine; Visit Provider Orthopaedic Surgery
DX: M25.552 Pain in left hip (principal)
CPT/HCPCS: 73502; 73552

== ENCOUNTER 2024-10-06 13:55 | Outpatient (CLI) | payer MEDICARE, BC, SELFPAY ==
--- NOTE | 2024-10-06 14:00 | XR_ITS ---
FINAL REPORT CLINICAL HISTORY: left hip pain COMPARISON: 09/08/2024 FINDINGS: LEFT HIP 2 views of the left hip are obtained. There is no acute fracture or dislocation. There are postoperative changes of ORIF of the left femoral neck. Hardware is intact. Some callus formation is seen at the fracture line. There are degenerative changes noted of the right hip. IMPRESSION: ORIF of the left femoral neck with callus formation at the fracture line. Reviewed, Interpreted and Dictated by Vanesa Dawn MD Transcribed by Mable Carr Authenticated and [facility]
--- NOTE | 2024-10-06 14:00 | XR_ITS ---
FINAL REPORT CLINICAL HISTORY: left hip pain upper lateral femur done in hip exam COMPARISON: 09/08/2024 FINDINGS: LEFT FEMUR 2 views were obtained. There is no acute fracture or dislocation. There is an intramedullary stephen in the right femur. Hardware is intact. Degenerative joint disease is noted at the knee. Visualized joint spaces are normally aligned. Soft tissues are unremarkable. IMPRESSION: No acute bony abnormality. Reviewed, Interpreted and Dictated by Vanesa Dawn MD Transcribed by Mable Carr Authenticated and [facility]
== END 2024-10-06 23:59 | disposition home or self-care (01) ==
LOC: RAD 13:57
PROVIDERS: PCP Family Medicine; Visit Provider Physician Assistant Surgical
DX: M16.11 Unilateral primary osteoarthritis, right hip (principal); S72.002D Fracture of unspecified part of neck of left femur, subsequent encounter for closed fracture with routine healing; Z96.698 Presence of other orthopedic joint implants
CPT/HCPCS: 73502; 73552

== ENCOUNTER 2024-11-16 13:29 | Outpatient (CLI) | payer MEDICARE, BC, SELFPAY ==
--- NOTE | 2024-11-16 13:31 | XR_ITS ---
FINAL REPORT CLINICAL HISTORY: left hip fx COMPARISON: None FINDINGS: LEFT HIP: 3 views of the left hip demonstrate no acute fracture or dislocation. There is partial healing of the intertrochanteric left femoral fracture, with incomplete union of the shaft. An ORIF of left hip is noted. The joint spaces appear normal. The visualized bony structures are well aligned. No soft tissue abnormality is seen. IMPRESSION: Delayed union of the intertrochanteric left femoral fracture, post-ORIF. Reviewed, Interpreted and Dictated by Jose Olivares MD Transcribed by Lindsey Driver Authenticated and [facility]
== END 2024-11-16 23:59 | disposition home or self-care (01) ==
LOC: RAD 13:31
PROVIDERS: PCP Family Medicine; Visit Provider Orthopaedic Surgery
DX: S72.142G Displaced intertrochanteric fracture of left femur, subsequent encounter for closed fracture with delayed healing (principal); X58.XXXD Exposure to other specified factors, subsequent encounter
CPT/HCPCS: 73502

== ENCOUNTER 2024-12-15 16:49 | Outpatient (CLI) | payer MEDICARE, BC, SELFPAY ==
--- OUTSIDE RECORDS SUMMARY | 2024-11-17 08:30 | XMS_ITS ---
Author Organization [facility] Address [facility] [facility] [address] [place] Case [id number] Care Team Providers Care Building Construction Supervisor Name Role Phone Marshall West Primary Care Provider Nikole Dewitt Unavailable [phone] Allergies No Known Allergies REASON FOR VISIT [facility]ISIT Medications Medication SIG (Take, Route, Frequency, [...] Encounter Location Date Provider Diagnosis Royce Ramirez [address] [place], [place] [address]ber[address] [place] Case [id number] 11/17/2024 Nikole Dewitt Dermatitis L30.9 ; C [...] to follow with urology after DC in [place] 11/17/2024 Acute retention of urine (ICD-10 - [...] to follow with urology after DC in [place] Acute retention of urine continue with i ndwelling Bowden Cath Next Appt Details Follow Up: will need to be f preciouslowed with MD in [place], Reason: Provider Name:Marshall Moeller, 03/16/2025 11:45:00 AM, [address] [facility] 36 [facility], [address], [place], [place], [id number], Progress Notes * ARCEOVICENTADOB: (84 yo M)Acc No.[id number]:11/17/2024 Progress Notes Patient: VICENTA PRADO Provider: NATANAEL Ahn :1940 A ge:84 Y S ex:Male Date:11/17/2024 Address:[address] [place] [address], [place], [id number] Pcp:Marshall West Subjective: * Chief Complaints: * 1 . [facility] VISIT. * HPI: H PI: For FU on rash and itching; pt states he no loger itches; plan is for him to be discharged tomorrow and will go home with daughter in [facility]. * ROS: D ERMATOLOGY: Negative for r [...] , [facility] , Prostate biopsy/ Dr. 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 * Hospitalization/Major Diagno stic Procedure: s ee above , [facility]Heart attack 07/13 to 08/03/08, [facility]-pneumonia 08/03 to 08/31/08, [facility]hab 09/15 to 10/06/08, [facility] ER-dizziness 06/23/09 to 06/24/09, [facility] after fall with FX left hip; nailing [...] to follow with urology after DC in [place] 8. A cute retention of urine Notes: continue with indwelling Bowden Cath 9. G adwoa-esophageal reflux disease without esophagitis Continue Lansoprazole Capsule Delayed Release, 30 MG, 1 capsule 1/2 to 1 hour before morning meal, Orally, Once a day. * Follow Up: w ill need to be followed with MD in [place] * Images: Billing Information: * Visit Code: 96421 subs. level 4. * Procedure Codes: * Electronic signature of Ofelia Dewitt APRN on 12/15/2024 at 04:53 PM EDT Sign off status: Pending * Provider: NATANAEL Ahn Date: 0 11/17/2024 Generated for Anthony mccullough/Shannan/James on: 0 12/15/2024 04:53 PM EDT History and Physical Notes * [...]
--- OUTSIDE RECORDS SUMMARY | 2024-12-01 07:15 | XMS_ITS ---
Author Organization [facility] Address [facility] [facility] [address] [place] [id number] Care Team Providers Care Carpenter Mold Name Role Phone Marshall West Primary Care Provider [phone] Allergies No Known Allergies REASON FOR VISIT [...] Status W/U Status Risk Notes Problem Alzheimer's dementia (G30.9) Active confirmed Vital Signs Weight 154.4 lbs 12/01/2024 Blood pressure systolic 100 mm Hg 12/02/19 25 Blood pressure diastolic 66 mm Hg 025 Heart Rate 69 /min 12/01/2024 Height 65 in 12/01/2024 BMI 25.69 kg/m2 12/01/2024 Encounters Encounter Location Date Provider Diagnosis [place] [facility] [address] [place] [id number] 12/01/2024 Marshall Ortizfleet Closed displaced intertrochanteric fracture of left femur [...] Follow Up: 3 Months, Reason: Provider Name:Marshall Moeller, 03/16/2025 11:45:00 AM, [address] [facility], [address], [place], [id number], Progress Notes * VICENTA ARCEO: (84 yo M)Acc No.[id number]:12/01/2024 Progress Notes Patient: VICENTA PRADO Provider: Marshall West M.D. :1940 A ge:84 Y S ex:Male Date:12/01/2024 Address:[address] [place] [address] [place], [place], [id number] Subjective: * Chief Complaints: * 1 . Rehab f/u. * HPI: H PI: Patient is here today for a Transition of Care Visit. Discharge from the following Facility: [place] [facility] following 08/19/2024 admission to [facility] for left femur fracture and subsequent hip replacement, [place] Discharge date: 11/18/2024 ,Date of phone contact [...] 08/03/08, [facility]-pneumonia 08/03 to 08/31/08, [facility]-rehab 09/15 to 10/06/08, [facility] ER-dizziness 06/23/09 to 06/24/09, [facility] after fall with FX left hip; [...] H ypothyroidism - E03.9 6 . B AL 25.0-25.9,adult - Z68.25 Plan: * Treatment: 2. A lzheimer's dementia Start Donepezil HCl Tablet, 5 MG, 1 tablet at bedtime, Orally, Once a day, 30. 3. O thers Notes: Discharge summary with available lab/diagnostic imaging results obtained and reviewed. Discharge medication list reconciled. Appropriate counseling provided. Moderate Complexity * Procedure Codes: 9 9495 [facility]ANS [facility]ARE [facility] 14 DAY DISCH, 1111F [facility] MED/CURENT MED MERGE, G2211 Complex e/m visit add on, 1036F TOBACCO NON-USER, G8420 BMI<30 AND >=22 CALC & DOCU, G8950 PREHTN/HTN BP DOC INDCD F/U DOC, G8752 MOST RECENT SYSTOLIC BP < 140MM HG, G8754 MOST RECENT DIASTOLIC BP < 90MM HG * Follow Up: 3 Months * Images: Billing Information: * Visit Code: 04525 Office Visit, Est Pt., Level 3. * Procedure Codes: [address] [facility] 14 DAY DISCH. 1111F DSCHR MED/CURENT MED MERGE. G2211 Complex e/m visit add on. 1036F TOBACCO NON-USER. G8420 BMI<30 AND >=22 CALC & DOCU. G8950 PREHTN/HTN BP DOC INDCD F/U DOC. G8752 MOST RECENT SYSTOLIC BP < 140MM HG. G8754 MOST RECENT DIASTOLIC BP < 90MM HG. * Electronic signature of Marshall West MD on 12/15/2024 at 04:52 PM EDT Sign off status: Pending * Provider: Marshall West M.D. Date: 12/01/2024 Generated for Anthony mccullough/Shannan/eTanastasiasmitting on: 12/15/2024 04:52 PM EDT History and Physical Notes * HPI (History of Present Illness) Category Sub-Category Detail Notes Category Not es HPI Patient is here toda y for a Transition of Care Visit. Discharge from the following Facility: [place] [facility]hab following 08/19/2024 admission to [facility] for left femur fracture and subsequent hip replacement, [place] Discharge date: 11/18/2024 ,Date of phone contact [...]
--- OUTSIDE RECORDS SUMMARY | 2024-12-01 09:30 | XMS_ITS ---
Author Organization [facility] Address [facility] [address] [place] [id number] Care Team Providers Care Assistant Gm Of Content & Delivery Name Role Phone Marshall West Primary Care Provider REASON FOR VISIT F/U discharge from [place] Encounters Encounter Location Date Provider Diagnosis [facility] [address] [place] [id number] 12/01/2024 Marshall West Plan Of Treatment Next Appt Details Provider Name:Marshall Moeller, 03/16/2025 11:45:00 AM, [address], [place], [id number], Progress Notes * VICENTA REYDOB: (84 yo M)Acc No.[id number]:12/01/2024 Progress Notes Patient: Michael MCKEON VICENTA CROWLEY Provider: Marshall West M.D. :1940 A ge:84 Y S ex:Male Date:12/01/2024 Address:[address] [facility] [address], [id number] Subjective: * Chief Complaints: * 1 . F/U discharge from [place]. * Medical History: Objective: * Vitals: Assessment: Plan: * Treatment: * Images: Billing Information: * Visit Code: * Procedure Codes: * Electronic signature of Marshall West MD on 12/15/2024 at 04:53 PM EDT Sign off status: Pending * Provider: Marshall West M.D. Date: 0 12/01/2024 Generated for Anthony mccullough/Shannan/James on: 0 12/15/2024 04:53 PM EDT
--- OUTSIDE RECORDS SUMMARY | 2024-12-15 16:53 | XMS_ITS | Patient Health Record ---
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 Name Role Phone Marshall West Primary Care Provider DewittChasidy baltazarine Unavailable [phone] Allergies No Known Allergies Results Component Value Reference Range Notes P-Comprehensive Metabolic Pa colmuba (CMP) Reviewed date:02/16/2024 10:13:21 PM Interpretation:gfr 58 Performing Lab: Notes/Report: Test performed by [facility] , [address], [place] [address] Jj Martinez MD, Solar Engineer CLIA: [id number] Sodium 143 135-145 mmol/L Potassium 4.8 3.5-5.3 mmol/L Chloride 106 97-108 mmol/L CO2 26 22-32 mmol/L Glucose 95 65-99 mg/dL BUN 16 8-23 mg/dL Creatinine 1.24 0.70-1.30 mg/dL Calcium 9.6 8.6-10.4 mg/dL eGFR by Creatinine 58 >59 mL/min/1.73m2 Protein 6.6 6.0-8.3 g/dL Albumin 3.9 3.5-5.3 g/dL Alkaline Phosphatase 92 40-129 IU/L ALT (SGPT) 10 <5-55 IU/L AST (SGOT) 17 <5-46 IU/L Bilirubin, Total 0.9 <0.2-1.2 mg/dL A/G Ratio 1.4 1.1-2.5 P-Lipid Panel Reviewed date:02/16/2024 10:13:21 PM Interpretation:Normal Performing Lab: Notes/Report: Test performed by [facility], [address], [place] [address] Jj Martinez MD, Solar Engineer CLIA: [id number] Cholesterol 161 <200 mg/dL Triglycerides 132 <150 mg/dL HDL Cholesterol 42 >39 mg/dL Cholesterol / HDL Ratio 3.83 0.00-4.99 Ratio Non-HDL Cholesterol 119 <130 mg/dL LDL Cholesterol (Calculation) 93 <130 mg/dL LDL Cholesterol Levels* Less than 100 mg/dL Optimal 100 to 129 mg/dL Near Optimal/ Above Optimal 130 to 159 mg/dL Borderline High 160 to 189 mg/dL High 190 mg/dL and above Very High * Categories as recommended by the 2004 ATPIII guidelines LDL/HDL Ratio 2.2 <3.3 Ratio LDL Cholesterol Patient History Test Date: 05/21/2023 LDL Results: 107 Units: mg/dL % Change: - Test Date: 02/06/2024 LDL Results: 93 Units: mg/dL % Change: -13% P-PSA Reviewed date:02/16/2024 10:13:21 PM Interpretation:8.65 Performing Lab: Notes/Report: Test performed by [facility], [address] , [address], [place] [address] Jj Martinez MD, Solar Engineer CLIA: [id number] PSA 8.65 <4.00 ng/mL Please note this is an ultrasensitive PSA assay with a lower limit of detection of 0.014 ng/mL. This test is performed by the Mickey ECLIA methodology. Values obtained with different assay methods or kits cannot be directly compared. Urine Culture and Sensitivit y Reviewed date:09/17/2024 03:27:18 PM Interpretation:Enterococcus facal,CC 10-50,000 Performing Lab: Notes/Report: Enterococcus facal,CC 10-50,000 CBC Reviewed date:10/20/2024 08:28:32 AM Interpretation:Abnormal Performing Lab: Notes/Report: Abnormal Urine Culture and Sensitivit y Reviewed date:10/21/2024 11:05:27 PM Interpretation: Performing Lab: Notes/Report: Reason For Referral No Information Medications Medication SIG (Take, Route, Frequency, Duration) Notes Start Date End Date Status Finasteride 5 MG 1 tablet Orally Once a day Not-Taking Levothyroxine Sodium 25 MCG 1 tablet in the morning on an empty stomach Orally Once a day Active HYDROcodone-Acetamino phen 5-325 MG 1 Orally daily 12/01/2024 Active Rolling Walker with seat - 1 as needed 11/19/2024 Active Commode Bedside - as directed 11/19/2024 Active Hydrocortisone 1 % 1 application to remaining rash on the arms Externally Twice a day Not-Taking Lansoprazole 30 MG 1 capsule 1/2 to 1 hour before morning meal Orally Once a day Active Tamsulosin HCl 0.4 MG 1 capsule Orally Once a day Active Cyanocobalamin 1000 MCG 1 tablet Orally Once a day Active Donepezil HCl 5 MG 1 tablet at bedtime Orally Once a day 12/01/2024 Active Aspirin 81 MG 1 tab(s) Orally bid Active Regular Diet - as directed CHELSEA; fortified foods; med pass 60ml bid Active HealthyLax 17 GM 1 packet mixed with 8 ounces of fluid Orally Once a day Active Metoprolol Succinate ER 25 MG 1 tablet Orally Once a day; Duration: 30 day(s) 10/13/2024 Active Immunizations Vaccine Route Administration Date Status Comme nts qNmrwlzk-mtkrgdram-oqgp care pts. IM Intramuscular 02/26/2011 Administered xFluzone High Dose-private (65yr&older) Unknown 03/19/2017 Administered xFluzone High Dose-private (65yr&older) Unknown 02/24/2018 Administered xFluzone High Dose-private (65yr&older) Unknown 03/03/2019 Administered xFlu shot-36 months and older IM Intramuscular 03/07/2010 Administered Tetanus Tdap-Adacel (over 7yrs) IM Intramuscular 06/29/2010 Administered Prevnar (PCV20) Unknown 08/20/2024 Pending Prevnar (PCV13) IM Intramuscular 03/17/2014 Administered PNEUMOVAX 23 VACCINE IM Intramuscular 02/23/2009 Administe red Fluzone High Dose (65yr and older) IM Intramuscular 01/25/2012 Administered Fluzone High Dose (65yr and older) IM Intramuscular 03/11/2013 Administered Fluzone High Dose (65yr and older) IM Intramuscular 03/04/2014 Administered Fluzone High Dose (65yr and older) IM Intramuscular 02/10/2015 Administered Fluzone High Dose (65yr and older) IM Intramuscular 03/01/2016 Administered Fluzone High Dose (65yr and older) IM Intramuscular 03/19/2017 Administered Fluzone High Dose (65yr and older) IM Intramuscular 02/24/2018 Administered Given by MP Fluzone High Dose (65yr and older) IM Intramuscular 03/03/2019 Administered Fluzone High Dose (65yr and older) IM Intramuscular 03/01/2020 Administered Fluzone High Dose (65yr and older) IM Intramuscular 03/26/2022 Administered Fluzone High Dose (65yr and older) IM Intramuscular 02/06/2024 Administered COVID 19 Moderna Unknown 07/06/2020 Administered COVID 19 Moderna Unknown 08/03/2020 Administered COVID 19 Moderna Unknown 03/28/2021 Administered Problems Problem Type SNOMED Code ICD Code Onset Dates Problem Status W/U Status Risk Notes Problem Anoxic brain damage (982433338) Anoxic brain damage NOS (348.1) Active confirmed Problem Convulsion (93225932) Seizures, Convulsions, other (780.39) Active confirmed Problem Gastroesophageal reflux disease (820062073) GERD (gastroesophageal reflux disease) (K21.9) Active confirmed Problem Gastro-esophageal reflux disease without esophagitis (985406857) Gastro-esophageal reflux disease without esophagitis (K21.9) Active confirmed Problem Hypertension (68914892) HTN (hypertension) (I10) Active confirmed Problem Seasonal allergy (054859377) Seasonal allergies (J30.2) Active confirmed Problem Pure hypercholesterolemia (981242147) Pure hypercholesterolemia (E78.0) Active confirmed Problem 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) Fracture of unspecified part of neck of unspecified femur, subsequent encounter for 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) Active confirmed Problem Hypothyroidism (68285520) Hypothyroidism (E03.9) Active confirmed Problem History of circulatory system disease (981436075) 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 Problem Acute urinary obstruction (N13.9) Active confirmed Problem Alzheimer's disease (30499433) Alzheimer's dementia (G30.9) Active confirmed Problem Dyslipidemia (090884459) Dyslipidemia (E78.5) Active confirmed Problem Benign prostatic hypertrophy without outflow obstruction (053493491) Benign hypertrophy of prostate (N40.0) Active confirmed Problem Hypothyroidism (96175181) Unspecified hypothyroidism (E03.9) Active confirmed Problem Pure hypercholesterolemia (377205383) Pure hypercholesterolemia (E78.00) Active confirmed Problem Elevated PSA (067652066) Elevated PSA (R97.20) Active confirmed Vital Signs Heart Rate 69 /min 12/01/2024 Respiratory Rate 18 /min 11/17/2024 Blood pressure diastolic 66 mm Hg 12/01/2024 Height 65 in 12/01/2024 Blood pressure systolic 100 mm Hg 12/01/2024 Weight 154.4 lbs 12/01/2024 BMI 25.69 kg/m2 12/01/2024 Encounters Encounter Location Date Provider Diagnosis [facility] [address] [facility] [address] [place] [id number] 02/06/2024 R Darion West HTN (hypertension) I 10 ; Cerumen impaction H61.20 ; Elevated PSA R97.20 ; Dyslipidemia E78.5 and Encounter for immunization Z23 [facility] [address] [place] [id number] 05/21/2024 R Darion Ortizfleet Olecranon bursitis, left elbow M70.22 [address] [place], [place] [id number] 08/25/2024 Nikole Dewitt HTN (hypertension) I 10 ; Elevated PSA R97.20 ; Dyslipidemia E78.5 ; GERD (gastroesophageal reflux disease) K21.9 ; 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 ; Vitamin B12 deficiency E53.8 ; Urinary retention R33.9 ; Fracture of unspecified part of neck of unspecified femur, subsequent encounter for closed fracture with nonunion S72.009K and Hypothyroidism E03.9 [address] [place], [place] [id number] 09/01/2024 Nikole Dewitt Unspecified hypothyroidism E03.9 ; Vitamin B12 deficiency E53.8 ; 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 ; Closed displaced intertrochanteric fracture of left femur with routine healing S72.142D ; Other closed fracture of left pubis with routine healing, subsequent encounter S32.592D ; Acute urinary obstruction N13.9 ; Benign hypertrophy of prostate N40.0 ; Acute retention of urine R33.8 ; Accidental fall, subsequent encounter W19.XXXD and Gastro-esophageal reflux disease without esophagitis K21.9 [address] [place], [place] [id number] 10/13/2024 Nikole Dewitt Closed displaced intertrochanteric fracture of left femur with routine healing S72.142D ; Unspecified hypothyroidism E03.9 ; Vitamin B12 deficiency E53.8 ; 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 ; Acute urinary obstruction N13.9 ; Benign hypertrophy of prostate N40.0 ; Acute retention of urine R33.8 and Gastro-esophageal reflux disease without esophagitis K21.9 [address] [place], [place] [id number] 11/03/2024 Nikole Dewitt Insect bite, infecte d, initial encounter W57.XXXA and Rash R21 [address] [place], [place] [id number] 11/10/2024 Nikole Dewitt Dermatitis L30.[address] [place] [address] [place], [place] [id number] 11/17/2024 Nikole Dewitt Dermatitis L30.9 ; C losed displaced intertrochanteric fracture of left femur with routine healing S72.142D ; Unspecified hypothyroidism E03.9 ; Vitamin B12 deficiency E53.8 ; 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 ; Acute urinary obstruction N13.9 ; Benign hypertrophy of prostate N40.0 ; Acute retention of urine R33.8 and Gastro-esophageal reflux disease without esophagitis K21.9 [facility] [address] [facility] [address] [place], [place] [id number] 12/01/2024 R Darion Brett Closed displaced intertrochanteric fracture of left femur with routine healing S72.142D ; Alzheimer's dementia G30.9 ; HTN (hypertension) I10 ; Dyslipidemia E78.5 ; Hypothyroidism E03.9 and BMI 25.0-25.9,adult Z68.25 [facility] [address] [facility] [address] [place], [place] [id number] 12/15/2024 R Darion Brett [facility] [address] [facility] [address] [place], [place] [id number] 12/26/2023 R Darion Brett HTN (hypertension) I 10 ; Hyperlipidemia E78.5 and GERD (gastroesophageal reflux disease) K21.9 [facility] [address] [facility] [address] [place], [place] [id number] 02/16/2024 R Darion Brett [facility] [address] [facility] [address] [place] [id number] 03/02/2024 R Darion Brett HTN (hypertension) I 10 [facility] [address] [facility] [address] [place], [place] [id number] 08/20/2024 R Darion Brett [facility] [address] [facility] [address] [place], [place] [id number] 08/28/2024 R Darion Brett [facility] [address] [place], [place] [id number] 09/02/2024 Nikole Randallond [facility] [address] [place], [place] [id number] 09/10/2024 R Darion Brett Closed displaced intertrochanteric fracture of left femur with routine healing S72.142D [facility] [address] [place], [place] [id number] 09/16/2024 Nikole Dewitt [facility] [address] [place], [place] [id number] 09/18/2024 R Darion Brett [facility] [address] [place], [place] [id number] 10/12/2024 R Darion Brett Hx of arteriosclerot ic cardiovascular disease Z86.79 [facility] [address] [place], [place] [id number] 10/15/2024 R Darion Brett [facility] [address] [place] [id number] 10/19/2024 R Darion Brett [facility] [address] [place], [place] [id number] 2024 Nikolerodolfo Randallond [facility] [address] [place], [place] [id number] 11/16/2024 R Darion Brett [facility] [address] [place], [place] [id number] 11/19/2024 R Darion Brett [facility] [address] [place], [place] [id number] 11/23/2024 R Darion Brett Assessments Encounter Date Diagnosis (ICD Code) Assessment Notes Treatment Notes Treatment Clinical Notes Section Notes 12/26/2023 HTN (hypertension) (ICD-10 - I10) 12/01/2024 Alzheimer's dementia (ICD-10 - G30.9) 12/01/2024 Closed displaced intertrochanteric fracture of left femur with routine healing (ICD-10 - S72.142D) 03/02/2024 HTN (hypertension) (ICD-10 - I10) 09/10/2024 Closed displaced intertrochanteric fracture of left femur with routine healing (ICD-10 - S72.142D) 11/10/2024 Dermatitis (ICD-10 - L30.9) 11/03/2024 Rash (ICD-10 - R21) 11/03/2024 Insect bite, infected, initial encounter (ICD-10 - W57.XXXA) numerous and appear infected; will start keflex and MDP; discussed with family and pt for possible causes ot papular outbreak; nursing has already assess room several times for any type of bug; encouraged not to scratch 05/21/2024 Olecranon bursitis, left elbow (ICD-10 - M70.22) 02/06/2024 HTN (hypertension) (ICD-10 - I10) 02/06/2024 Cerumen impaction (ICD-10 - H61.20) Both ears are irrigated and wax removed. 11/17/2024 Dermatitis (ICD-10 - L30.9) Pt currently free of rash; did observe him scratching him scratching his forearm in lobby; did reassess and no rash noted; reinforced no scratching to pt 10/13/2024 Unspecified hypothyroidism (ICD-10 - E03.9) 10/13/2024 Closed displaced intertrochanteric fracture of left femur with routine healing (ICD-10 - S72.142D) continues to work with PT; fall prevention 10/12/2024 Hx of arteriosclerotic cardiovascular disease (ICD-10 - Z86.79) 09/01/2024 Vitamin B12 deficiency (ICD-10 - E53.8) 09/01/2024 Unspecified hypothyroidism (ICD-10 - E03.9) 08/25/2024 HTN (hypertension) (ICD-10 - I10) 08/25/2024 Elevated PSA (ICD-10 - R97.20) 08/25/2024 Dyslipidemia (ICD-10 - E78.5) 09/01/2024 Hx of arteriosclerotic cardiovascular disease (ICD-10 - Z86.79) 10/13/2024 Vitamin B12 deficiency (ICD-10 - E53.8) 11/17/2024 Closed displaced intertrochanteric fracture of left femur with routine healing (ICD-10 - S72.142D) continues to work with PT; fall prevention 02/06/2024 Elevated PSA (ICD-10 - R97.20) 12/01/2024 HTN (hypertension) (ICD-10 - I10) 12/26/2023 Hyperlipidemia (ICD-10 - E78.5) 12/01/2024 Dyslipidemia (ICD-10 - E78.5) 12/26/2023 GERD (gastroesophageal reflux disease) (ICD-10 - K21.9) 02/06/2024 Dyslipidemia (ICD-10 - E78.5) 11/17/2024 Unspecified hypothyroidism (ICD-10 - E03.9) 10/13/2024 Hx of arteriosclerotic cardiovascular disease (ICD-10 - Z86.79) 09/01/2024 Closed displaced intertrochanteric fracture of left femur with routine healing (ICD-10 - S72.142D) will continue with rehab/PT 08/25/2024 GERD (gastroesophageal reflux disease) (ICD-10 - K21.9) 08/25/2024 Hx of arteriosclerotic cardiovascular disease (ICD-10 - Z86.79) 09/01/2024 Other closed fractur e of left pubis with routine healing, subsequent encounter (ICD-10 - S32.592D) 10/13/2024 Acute urinary obstruction (ICD-10 - N13.9) to see urology, Dr. Figueroa 11/17/2024 Vitamin B12 deficiency (ICD-10 - E53.8) 02/06/2024 Encounter for immunization (ICD-10 - Z23) 12/01/2024 Hypothyroidism (ICD-10 - E03.9) 12/01/2024 BMI 25.0-25.9,adult (ICD-10 - Z68.25) 11/17/2024 Hx of arteriosclerotic cardiovascular disease (ICD-10 - Z86.79) 10/13/2024 Benign hypertrophy o f prostate (ICD-10 - N40.0) 09/01/2024 Acute urinary obstruction (ICD-10 - N13.9) 08/25/2024 Vitamin B12 deficiency (ICD-10 - E53.8) 08/25/2024 Urinary retention (ICD-10 - R33.9) bladder training 09/01/2024 Benign hypertrophy o f prostate (ICD-10 - N40.0) 10/13/2024 Acute retention of urine (ICD-10 - R33.8) 11/17/2024 Acute urinary obstruction (ICD-10 - N13.9) see Urology note 11/17/2024 Benign hypertrophy o f prostate (ICD-10 - N40.0) Will need to follow with urology after DC in [place] 10/13/2024 Gastro-esophageal reflux disease without esophagitis (ICD-10 - K21.9) 09/01/2024 Acute retention of urine (ICD-10 - R33.8) 08/25/2024 Fracture of unspecified part of neck of unspecified femur, subsequent encounter for closed fracture with nonunion (ICD-10 - S72.009K) 08/25/2024 Hypothyroidism (ICD-10 - E03.9) 09/01/2024 Accidental fall, subsequent encounter (ICD-10 - W19.XXXD) Fall prevention 11/17/2024 Acute retention of urine (ICD-10 - R33.8) continue with indwelling Stokes Cath 11/17/2024 Gastro-esophageal reflux disease without esophagitis (ICD-10 - K21.9) 09/01/2024 Gastro-esophageal reflux disease without esophagitis (ICD-10 - K21.9) 05/21/2024 Other Swede-O well to ear canals 08/25/2024 Other continue with PT; Fall prevention 12/01/2024 Other Discharge summary with available lab/diagnostic imaging results obtained and reviewed. Discharge medication list reconciled. Appropriate counseling provided. Moderate Complexity Plan Of Treatment Next Appt Details Provider Name:Marshall Moeller, 03/16/2025 11:45:00 AM, [address], [place], [place], [id number], Insurance Providers Payer Name Payer Address Payer Phone Subscriber Number Group Number Insured Name Patient Relationship to Insured Coverage Start Date Coverage End Date MEDICARE PART B [address] [address] [address] [place] [id number] VICENTA RODRIGUES Self - patient is the insured DAVID VAZQUEZ [employer] [address] [place] [address] [id number] RORYJO VICENTA Jones Self - patient is the insured Medications Administered Medication Instructions Date of Administration Dosage Notes Depo- Medrol 40 mg/ml 06/14/2017 1 mL Depo- Medrol 40 mg/ml 08/12/2018 1.5 mL Dexamethasone 05/05/2007 1 mL Dexamethasone 07/17/2012 1 mL Dexamethasone 03/05/2013 1 mL Dexamethasone 11/21/2020 1 mL Medical (General) History Medical History History ICD Code Coronary Artery Disease Heart Attack 07/13/08 Anoxic Brain Injury 07/12 Bitemporal Seizures 07/12 HTN HLP allergic rhinitis Cardiac murmur hypothyroidism Surgical History Surgery Date(Month/Year) kidney stones stent 07/13/08-[facility] stent X 2 on 06/25/[address] [facility] Prostate biopsy/ Dr. 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
[2024-12-15 17:02] LABS: Microscopic,Cath URINE MICROSCOPIC (MICROSCOPIC)
[2024-12-15 17:06] LABS: Appearance,Urine/Cath CLEAR (Clear); Bilirubin,Cath Negative (Negative); Blood, Urine/Cath 2+ (Negative); Color,Urine/Cath YELLOW (Yellow); Glucose,Urine/Cath (UA) Negative (Negative); Ketones,Urine/Cath Negative (Negative); Leukocyte Esterase,Cath 1+ (Negative); Nitrate,Cath POSITIVE (Negative); PH,Urine/Cath 5.5 (5.0-8.5); Protein,Urine/Cath 1+ (Negative); Specific Gravity, Urine/Cath >= 1.030 (1.005-1.030); Urobilinogen,Cath 1.0 EU/dl (0.2)
[2024-12-15 18:55] LABS: Bacteria,Urine/Cath 3+ /lpf; WBC,Urine/Cath TNTC #/hpf (0-3)
== END 2024-12-15 23:59 | disposition home or self-care (01) ==
LOC: LAB.DROPOF 16:51
PROVIDERS: PCP Family Medicine; Visit Provider Family Medicine
DX: R30.0 Dysuria (principal)
CPT/HCPCS: 81001; 87086; 87088; 87186

== ENCOUNTER 2024-12-18 08:46 | Day surgery (SDC) | payer MEDICARE, BC, SELFPAY ==
[2024-12-18 09:12] VITALS: BP 190/85; PULSE 56; RESP 16; TEMP 36.1; O2SAT 96
--- NOTE | 2024-12-18 09:28 | P.PCN_ITS ---
[facility] Procedure Note Date: 12/18/24 Time: 09:28 Procedure Note:: Chart review: The patient is troubled with urinary retention. He has failed voiding trials. He is here for cystoscopy to evaluate prostate obstruction. He could have a neurogenic bladder contributing as well. His postvoid residual on 11/27 from the office was 295 cc. The patient now is at home out of the [facility] and has a 24-hour sitter. Perhaps we could consider teaching the sitter to do intermittent catheterization. The patient likely to do intermittent catheterization but in his mind said he is adamantly against self intermittent catheterization. He is on Proscar and Flomax. Pre-op diagnosis: Urinary retention Postop diagnosis: Urinary retention Operative note: The patient was brought to the cystoscopy suite. His Stokes catheter was removed. He was prepped and draped in the sterile fashion. He un derwent flexible cystoscopy. The anterior urethra shows some inflammatory changes from his Stokes catheter. From the level of the verumontanum the patient has grade 3 bilobar prostate obstruction. His prostatic urethra is 3 to 3-1/2 cm in length. His bladder is trabeculated throughout. The ureteral orifices seem to be normal bilaterally. He has clear efflux of urine. The patient's first sensation to void was at 75 cc. His bladder held 275 cc and he actually voided around the cystoscope. I will give the patient another voiding trial in a week or so. I will also teach his caregiver intermittent catheterization. The patient perhaps could benefit from prostate surgery if he is physically able. We will discuss all this in the office.
[2024-12-18] MEDS: LIDOCAINE 2% UROJET 10ML 10 ML (09:36)
[2024-12-18] MEDS: 0.9 % SODIUM CHLORIDE 500 ML 25 ML IV (09:36)
[2024-12-18 09:42] VITALS: BP 135/66; PULSE 52; RESP 16; TEMP 36.4; O2SAT 98
== END 2024-12-18 10:00 | disposition home or self-care (01) ==
PROVIDERS: PCP Family Medicine; Visit Provider Urology
PROC: 0TJB8ZZ Inspection of Bladder, Via Natural or Artificial Opening Endoscopic (ICD-10-PCS; CPT 52000; principal; 2024-12-18 09:45)
DX: N40.1 Benign prostatic hyperplasia with lower urinary tract symptoms (principal); R33.8 Other retention of urine; N32.89 Other specified disorders of bladder; I48.91 Unspecified atrial fibrillation; I25.2 Old myocardial infarction; I10 Essential (primary) hypertension; E03.9 Hypothyroidism, unspecified; Z79.82 Long term (current) use of aspirin; Z79.890 Hormone replacement therapy; Z79.899 Other long term (current) drug therapy
CPT/HCPCS: 52000; J7040

== ENCOUNTER 2025-02-01 18:55 | Inpatient (IN) | payer MEDICARE, BC, SELFPAY ==
--- OUTSIDE RECORDS SUMMARY | 2024-11-03 12:00 | XMS_ITS ---
Author Organization [facility] Address [address] [facility] [address] [place] [id number] Care Team Providers Care Youth Probation Officer Name Role Phone Marshall West Primary Care Provider Nikole Dewitt Unavailable [phone] Allergies No Known Allergies REASON FOR VISIT [facility] [place] Medications Medication SIG (Take, Route, Frequency, Duration) Notes Start Date End Date Status Medrol 4 MG as directed orally daily; Duration: 6 days 11/04/2024 Active Lansoprazole 30 MG 1 capsule 1/2 to 1 hour before morning meal Orally Once a day Active Levothyroxine Sodium 25 MCG 1 tablet in the morning on an empty stomach Orally Once a day Active Cephalexin 500 MG 1 capsule Orally every 6 hrs; Duration: 10 day(s) 11/04/2024 Active Regular Diet - as directed CHELSEA; fortified foods; med pass 60ml bid Active Metoprolol Succinate ER 25 MG 1 tablet Orally Once a day; Duration: 30 day(s) 10/13/2024 Active Tamsulosin HCl 0.4 MG 2 capsules Orally daily Active HYDROcodone-Acetaminoph en 5-325 MG 2 Orally every 4 hrs prn Active Cyanocobalamin 1000 MCG 1 tablet Orally Once a day Active HealthyLax 17 GM 1 packet mixed with 8 ounces of fluid Orally Once a day Active Aspirin 81 MG 1 tab(s) Orally bid Active Vital Signs Weight 153.8 lbs 11/03/2024 Blood pressure systolic 106 mm Hg 11/04/19 25 Blood pressure diastolic 71 mm Hg 025 Heart Rate 57 /min 11/03/2024 Respiratory Rate 18 /min 11/03/2024 Encounters Encounter Location Date Provider Diagnosis [place] [place] [id number] 11/03/2024 Nikole Dewitt Insect bite, infecte d, initial encounter W57.XXXA and Rash R21 Assessments Encounter Date Diagnosis (ICD Code) Assessment Notes Treatment Notes Treatment Clinical Notes Section Notes 11/03/2024 Insect bite, infected, initial encounter (ICD-10 - W57.XXXA) numerous and appear infected; will start keflex and MDP; discussed with family and pt for possible causes ot papular outbreak; nursing has already assess room several times for any type of bug; encouraged not to scratch 11/03/2024 Rash (ICD-10 - R21) Plan Of Treatment Medication Medication Name Sig Start Date Stop Date Notes Medrol 4 MG as directed orally d aily; Duration: 6 days 11/04/2024 Cephalexin 500 MG 1 capsule Orally monica ry 6 hrs; Duration: 10 day(s) 11/04/2024 Treatment Notes Assessment Notes Insect bite, infected, initial encounter numerous and appear infected; will start keflex and MDP; discussed with family and pt for possible causes ot papular outbreak; nursing has already assess room several times for any type of bug; encouraged not to scratch Next Appt Details Follow Up: 1 Week, Reason: Provider Name:Marshall Moeller, 03/16/2025 11:45:00 AM, [address], [place], [id number], Progress Notes * VICENTA ARCEODOB: (84 yo M)Acc No.[id number]:11/03/2024 Progress Notes Patient: VICENTA PRADO KEO Provider: NATANAEL Ahn :1940 A ge:83 Y S ex:Male Date:11/03/2024 Address:[address] [place] [address] [id number] Pcp:Marshall West Subjective: * Chief Complaints: * 1 . [facility] [place]. * HPI: H PI: asked to be seen for itchy rash; see ROS. * ROS: R ESPIRATORY: no S hortness of breath. n o C ough. ? D ERMATOLOGY: Positive for r ortiz; itchy; on right arm and right upper chest; few papule on the left arm; has been scratching; one week duration; some papules have resolved and new ones have been noted. w as outside some last week. 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 * Surgical History: k idney stones , stent 07/13/08-[facility] , stent X 2 on 06/25/[address] [facility] , Prostate biopsy/ Dr. 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 * Hospitalization/Major Diagno stic Procedure: s ee above , [facility]Heart attack 07/13 to 08/03/08, [facility]-pneumonia 08/03 to 08/31/08, [facility]-rehab 09/15 to 10/06/08, [facility] ER-dizziness 06/23/09 to 06/24/09, [facility] after fall with FX left hip; nailing left proximal femur 08/19-08/24/2024. * Family History: F ather: , Prostate cancer. M other: . 1 daughter(s) - healthy. .? * Social History: C URRENT TOBACCO USE S moking Status: Patient does NOT smoke. H ome smoke detector use: yes. Marital Status: . Past smoking status: no, Smoking status: Does not smoke. * Medications: T aking HealthyLax 17 GM Packet 1 packet mixed with 8 ounces of fluid Orally Once a day , Taking Aspirin 81 MG Capsule 1 tab(s) Orally bid , Taking Regular Diet - - as directed , Notes to Pharmacist: CHELSEA; fortified foods; med pass 60ml bid, Taking Metoprolol Succinate ER 25 MG Tablet Extended Release 24 Hour 1 tablet Orally Once a day , Taking HYDROcodone-Acetaminophen 5-325 MG Tablet 2 Orally every 4 hrs prn , Taking Cyanocobalamin 1000 MCG Tablet 1 tablet Orally Once a day , Taking Tamsulosin HCl 0.4 MG Capsule 2 capsules Orally daily , Taking Lansoprazole 30 MG Capsule Delayed Release 1 capsule 1/2 to 1 hour before morning meal Orally Once a day , Taking Levothyroxine Sodium 25 MCG Tablet 1 tablet in the morning on an empty stomach Orally Once a day , Discontinued Zocor 20 MG Tablet 1 tab(s) orally once a day (at bedtime) * Allergies: N .K.D.A. Objective: * Vitals: W t: 153.8, Temp: 98.2, BP: 106/71, HR: 57, O2 Sat: 94%, Nurse: reviewed/recorded by lobito, RR: 18. * Examination: G eneral Examination: General Appearance: N AD, appears healthy, alert; with family in wheelchair in the hallway. S kin: s cattered excoriated papular rash on upper and lower right arm and right nterior upper chest; no drainage; some crustation; 2 papules noted on the left forrm; none on the back or other parts of the chest; none on his legs or groin. ? G enitourinary - Male: c ontinues with bowden cath to BSD. Assessment: * Assessment: 1. R ortiz - R21 (Primary) 2 . I nsect bite, infected, initial encounter - W57.XXXA Plan: * Treatment: * Follow Up: 1 Week * Images: Billing Information: * Visit Code: 19389 subs. level 4. * Procedure Codes: * Electronic signature of Ofelia Dewitt APRN on 02/03/2025 at 02:46 PM EDT Sign off status: Pending * Provider: NATANAEL Ahn Date: 0 11/03/2024 Generated for Anthony mccullough/Shannan/James on: 1 02:46 PM EDT History and Physical Notes * Examination Category Sub-Category Detail Notes Category Not es General Examination General Appearance: NAD, jodee ears healthy, alert; with family in wheelchair in the hallway Skin: scattered excoriated papular rash on upper and lower right arm and right nterior upper chest; no drainage; some crustation; 2 papules noted on the left forrm; none on the back or other parts of the chest; none on his legs or groin Genitourinary - Male continu es with bowden cath to BSD
--- OUTSIDE RECORDS SUMMARY | 2024-11-03 12:00 | XMS_ITS ---
Author Organization [facility] Address [address] [facility] [address] [place] [id number] Care Team Providers Care Radiation Safety Officer Name Role Phone Marshall West Primary Care Provider Nikole Dewitt Unavailable [phone] Allergies No Known Allergies REASON FOR VISIT [facility] [place] Medications Medication SIG (Take, Route, Frequency, [...] 11/03/2024 Encounters Encounter Location Date Provider Diagnosis [place] [place] [id number] 11/03/2024 Nikole Dewitt Insect bite, infecte d, [...] [address], [place], [id number], Progress Notes * VICENTA ARCEODOB: (84 yo M)Acc No.[id number]:11/03/2024 Progress Notes Patient: VICENTA PRADO KEO Provider: NATANAEL Ahn :1940 A ge:83 Y S ex:Male Date:11/03/2024 Address:[address] [place] [address] [id number] Pcp:Marshall West Subjective: * Chief Complaints: * 1 . [facility] [place] VISIT. * HPI: H PI: asked to [...] Surgical History: k idney stones , stent 07/13/08-[facility] , stent X 2 on 06/25/09 @ [facility] , Prostate biopsy/ Dr. 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 * Hospitalization/Major Diagno stic Procedure: s ee above , [facility]Heart attack 07/13 to 08/03/08, [facility]neum[facility] 08/03 to 08/31/08, [facility]-rehab 09/15 to 10/06/08, [facility] ER-dizziness 06/23/09 to 06/24/09, [facility] after fall with FX left hip; [...] * Images: Billing Information: * Visit Code: 29198 subs. level 4. * Procedure Codes: * Electronic signature of Ofelia Dewitt APRN on 02/01/2025 at 07:10 PM EDT Sign off status: Pending * Provider: NATANAEL Ahn Date: 0 11/03/2024 Generated for Anthony mccullough/Shannan/James on: 0 02/01/2025 07:10 PM EDT History and Physical Notes * [...]
--- OUTSIDE RECORDS SUMMARY | 2024-11-10 11:30 | XMS_ITS ---
Author Organization [facility] Address [address] [facility] [address] [place] [id number] Care Team Providers Care Compliance Aide Name Role Phone Marshall West Primary Care Provider Nikole Dewitt Unavailable [phone] Allergies No Known Allergies REASON FOR VISIT [facility] [place] Medications Medication SIG (Take, Route, Frequency, Duration) Notes Start Date End Date Status HYDROcodone-Acetaminop hen 5-325 MG 2 Orally every 4 hrs prn Active Levothyroxine Sodium 25 MCG 1 tablet in the morning on an empty stomach Orally Once a day Active Tamsulosin HCl 0.4 MG 2 capsules Orally daily Active Lansoprazole 30 MG 1 capsule 1/2 to 1 hour before morning meal Orally Once a day Active Cyanocobalamin 1000 MCG 1 tablet Orally Once a day Active Metoprolol Succinate ER 25 MG 1 tablet Orally Once a day; Duration: 30 day(s) 10/13/2024 Active Aspirin 81 MG 1 tab(s) Orally bid Active Regular Diet - as directed CHELSEA; fortified foods; med pass 60ml bid Active HealthyLax 17 GM 1 packet mixed with 8 ounces of fluid Orally Once a day Active Hydrocortisone 1 % 1 application to remaining rash on the arms Externally Twice a day 11/11/2024 Active Vital Signs Weight 149.2 lbs 11/10/2024 Blood pressure systolic 111 mm Hg 11/11/19 25 Blood pressure diastolic 82 mm Hg 025 Heart Rate 60 /min 11/10/2024 Respiratory Rate 18 /min 11/10/2024 Encounters Encounter Location Date Provider Diagnosis [address] [place] [id number] 11/10/2024 Nikole Dewitt Dermatitis L30.9 Assessments Encounter Date Diagnosis (ICD Code) Assessment Notes Treatment Notes Treatment Clinical Notes Section Notes 11/10/2024 Dermatitis (ICD-10 - L30.9) Plan Of Treatment Medication Medication Name Sig Start Date Stop Date Notes Hydrocortisone 1 % 1 application to rem aining rash on the arms Externally Twice a day 11/11/2024 Next Appt Details Follow Up: 2 Months,and prn, Reason: Provider Name:Marshall Moeller, 03/16/2025 11:45:00 AM, [address], [place], [id number], Progress Notes * ARCEO VICENTAAURORA CROWLEYDOB: (84 yo M)Acc No.[id number]:11/10/2024 Patient: VICENTA PRADO KEO Provider: NATANAEL Ahn :1940 A ge:83 Y S ex:Male Date:11/10/2024 Address:[address] [place] [address], [place], [id number] Pcp:Marshall West Subjective: * Chief Complaints: * 1 . [facility] [place] [facility]. * HPI: H PI: For routine visit and FU on dermatitis; nursing state some spots on the left arm; room has again been checked for bugs t the request of pt/family; pt states he has no further itching. * ROS: D ERMATOLOGY: Rash y es, u pper extremities-right arm , improved.? E NT: Negative for r espiratory symptoms. 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 * Surgical History: otis ford stones , stent 07/13/08-[facility] , stent X 2 on 06/25/[address] [facility] , Prostate biopsy/ Dr. 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 * Hospitalization/Major Diagno stic Procedure: s ee above , [facility]Heart attack 07/13 to 08/03/08, [facility]neum[facility] 08/03 to 08/31/08, [facility]-rehab 09/15 to 10/06/08, [facility] ER-dizziness 06/23/09 to 06/24/09, [facility] after fall with FX left hip; nailing [...] stomach Orally Once a day , Discontinued Cephalexin 500 MG Capsule 1 capsule Orally every 6 hrs , Discontinued Medrol 4 MG Tablet Therapy Pack as directed orally daily * Allergies: N .K.D.A. Objective: * Vitals: W t: 149.2, Temp: 97.9, BP: 111/82, HR: 60, O2 Sat: 97%, Nurse: reviewed/recorded by lobito, RR: 18. * Examination: G eneral Examination: General Appearance: N AD, alert, pleasant; sitting in wheelchair in the lobby waiting to go to dinner in the dining room. L ungs: n ormal. S kin: fading rash on the right upper arm and right upper anterior chest wall; 2-3 papules on the left upper arm ; no rash on the back or rest of trunk ; none on the legs. Assessment: * Assessment: 1. D ermatitis - L30.9 (Primary) Plan: * Treatment: * Follow Up: 2 Months,and prn * Images: Billing Information: * Visit Code: 32703 subs. level 4. * Procedure Codes: * Electronic signature of Ofelia Dewitt APRN on 02/01/2025 at 07:09 PM EDT Sign off status: Pending * Provider: NATANAEL Ahn Date: 0 11/10/2024 Generated for Anthony mccullough/Shannan/James on: 0 02/01/2025 07:09 PM EDT History and Physical Notes * Examination Category Sub-Category Detail Notes Category Not es General Examination Lungs: normal General Appearance: NAD, alert, pleasant ; sitting in wheelchair in the lobby waiting to go to dinner in the dining room Skin: fading rash on the r ight upper arm and right upper anterior chest wall; 2-3 papules on the left upper arm ; no rash on the back or rest of trunk ; none on the legs
--- OUTSIDE RECORDS SUMMARY | 2024-11-10 11:30 | XMS_ITS ---
Author Organization [facility] Address [address] [place] [id number] Care Team Providers Care Assistant Manager Quality Management Name Role Phone Marshall West Primary Care Provider Nikole Dewitt Unavailable [phone] Allergies No Known Allergies REASON FOR VISIT [facility] Medications Medication SIG (Take, Route, Frequency, [...] 11/10/2024 Encounters Encounter Location Date Provider Diagnosis [address] [place] [id number] 11/10/2024 Nikole Dewitt Dermatitis L30.9 Assessments Encounter [...] [address], [place], [id number], Progress Notes * ARCEO VICENTAAURORA CROWLEYDOB: (84 yo M)Acc No.[id number]:11/10/2024 Patient: VICENTA PRADO KEO Provider: NATANAEL Ahn :1940 A ge:83 Y S ex:Male Date:11/10/2024 Address:[address] [place] [address], [place], [id number] Pcp:Marshall West Subjective: * Chief Complaints: * 1 . [facility]. * HPI: H PI: For routine [...] [facility] 08/03 to 08/31/08, [facility]-rehab 09/15 to 10/06/08, [facility] ER-dizziness 06/23/09 to 06/24/09, [facility] after fall with FX left hip; [...] * Images: Billing Information: * Visit Code: 36840 subs. level 4. * Procedure Codes: * Electronic signature of Ofelia Dewitt APRN on 02/03/2025 at 02:45 PM EDT Sign off status: Pending * Provider: NATANAEL Ahn Date: 0 11/10/2024 Generated for Anthony mccullough/Shannan/James on: 1 02:45 PM EDT History and Physical Notes * [...]
--- OUTSIDE RECORDS SUMMARY | 2024-11-17 08:30 | XMS_ITS ---
Author Organization [facility] Address [facility] [facility] [address] [place] Case [id number] Care Team Providers Care Quality Assurance Consultant Name Role Phone Marshall West Primary Care Provider [phone] Nikole Dewitt Unavailable [phone] Allergies No Known Allergies REASON FOR VISIT [facility] Medications Medication SIG (Take, Route, Frequency, Duration) Notes Start Date End Date Status Cyanocobalamin 1000 MCG 1 tablet Orally Once a day Active Tamsulosin HCl 0.4 MG 1 capsule Orally Once a day Active Metoprolol Tartrate 25 MG 1 tab(s) Orally once daily Active Lansoprazole 30 MG 1 capsule 1/2 to 1 hour before morning meal Orally Once a day Active Levothyroxine Sodium 25 MCG 1 tablet in the morning on an empty stomach Orally Once a day Active Hydrocortisone 1 % 1 application to remaining rash on the arms Externally Twice a day Active Metoprolol Succinate ER 25 MG 1 tablet Orally Once a day; Duration: 30 day(s) 10/13/2024 Active HYDROcodone-Acetaminop hen 5-325 MG 2 Orally every 4 hrs prn Active Regular Diet - as directed CHELSEA; fortified foods; med pass 60ml bid Active Finasteride 5 MG 1 tablet Orally Once a day; Duration: 30 day(s) 11/20/2024 Active Finasteride 5 MG 1 tablet Orally Once a day Active Aspirin 81 MG 1 tab(s) Orally bid Active HealthyLax 17 GM 1 packet mixed with 8 ounces of fluid Orally Once a day Active Vital Signs Weight 149.2 lbs 11/17/2024 Blood pressure systolic 122 mm Hg 07/15/20 25 Blood pressure diastolic 78 mm Hg 025 Heart Rate 62 /min 11/17/2024 Respiratory Rate 18 /min 11/17/2024 Encounters Encounter Location Date Provider Diagnosis Royce Ramirez [address] [place], [place] [address]ber[address] [place] Case [id number] 11/17/2024 Nikole Dewitt Dermatitis L30.9 ; C losed displaced intertrochanteric fracture of left femur with routine healing S72.142D ; Unspecified hypothyroidism E03.9 ; Vitamin B12 deficiency E53.8 ; 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 ; Acute urinary obstruction N13.9 ; Benign hypertrophy of prostate N40.0 ; Acute retention of urine R33.8 and Gastro-esophageal reflux disease without esophagitis K21.9 Assessments Encounter Date Diagnosis (ICD Code) Assessment Notes Treatment Notes Treatment Clinical Notes Section Notes 11/17/2024 Dermatitis (ICD-10 - L30.9) Pt currently free of rash; did observe him scratching him scratching his forearm in lobby; did reassess and no rash noted; reinforced no scratching to pt 11/17/2024 Closed displaced intertrochanteric fracture of left femur with routine healing (ICD-10 - S72.142D) continues to work with PT; fall prevention 11/17/2024 Unspecified hypothyroidism (ICD-10 - E03.9) 11/17/2024 Vitamin B12 deficiency (ICD-10 - E53.8) 11/17/2024 Hx of arteriosclerotic cardiovascular disease (ICD-10 - Z86.79) 11/17/2024 Acute urinary obstruction (ICD-10 - N13.9) see Urology note 11/17/2024 Benign hypertrophy o f prostate (ICD-10 - N40.0) Will need to follow with urology after DC in [place] 11/17/2024 Acute retention of urine (ICD-10 - R33.8) continue with indwelling Bowden Cath 11/17/2024 Gastro-esophageal reflux disease without esophagitis (ICD-10 - K21.9) Plan Of Treatment Medication Medication Name Sig Start Date Stop Date Notes Cyanocobalamin 1000 MCG 1 tablet Orally Once a day Tamsulosin HCl 0.4 MG 1 capsule Orally Once a day Metoprolol Tartrate 25 MG 1 tab(s) Orally once daily Lansoprazole 30 MG 1 capsule 1/2 to 1 h our before morning meal Orally Once a day Levothyroxine Sodium 25 MCG 1 tablet in the morning on an empty stomach Orally Once a day Hydrocortisone 1 % 1 application to rem aining rash on the arms Externally Twice a day HYDROcodone-Acetaminophen 5- 325 MG 2 Orally every 4 hrs prn Finasteride 5 MG 1 tablet Orally Once a day; Duration: 30 day(s) 11/20/2024 Treatment Notes Assessment Notes Dermatitis Pt currently free of rash; did observe him scratching him scratching his forearm in lobby; did reassess and no rash noted; reinforced no scratching to pt Closed displaced intertrocha nteric fracture of left femur with routine healing continues to work with PT; fall prevention Acute urinary obstruction see Urology no te Benign hypertrophy of prostate Will need to follow with urology after DC in [place] Acute retention of urine continue with i ndwelling Bowden Cath Next Appt Details Follow Up: will need to be f preciouslowed with MD in [place], Reason: Provider Name:Marshall Moeller, 03/16/2025 11:45:00 AM, [address] [facility] 36 [facility], [address], [place], [place], [id number], Progress Notes * ARCEOVICENTADOB: (84 yo M)Acc No.[id number]:11/17/2024 Progress Notes Patient: VICENTA PRADO Provider: NATANAEL Ahn :1940 A ge:84 Y S ex:Male Date:11/17/2024 Address:[address] [place] [address], [id number] Pcp:Marshall West Subjective: * Chief Complaints: * 1 . [facility]. * HPI: H PI: For FU on rash and itching; pt states he no loger itches; plan is for him to be discharged tomorrow and will go home with daughter in [facility]. * ROS: D ERMATOLOGY: Negative for r ortiz as reported by pt and nursing staff.? M USCULOSKELETAL: Positive for a mbulates in wheelchair. U ROLOGY: Positive for S aw urology, Dr. Cr, 11/16/2024 and failed voiding trial after Bowden removed; meds changed with addition of Finasteride and Bowden reinserted.? 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 * Surgical History: k idney stones , stent 07/13/08- [facility] , [facility] , Prostate biopsy/ Dr. 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 * Hospitalization/Major Diagno stic Procedure: s ee above , [facility]-Heart attack 07/13 to 08/03/08, [facility]-pneumonia 08/03 to 08/31/08, [facility]-rehab 09/15 to 10/06/08, [facility] ER-dizziness 06/23/09 to 06/24/09, [facility] after fall with FX left hip; nailing left proximal femur 08/19-08/24/2024. * Family History: F ather: , Prostate cancer. M other: . 1 daughter(s) - healthy. .? * Social History: C URRENT TOBACCO USE S moking Status: Patient does NOT smoke. H ome smoke detector use: yes. Marital Status: . Past smoking status: no, Smoking status: Does not smoke. * Medications: T aking Finasteride 5 MG Tablet 1 tablet Orally Once a day , Taking HealthyLax 17 GM Packet 1 packet mixed [...] , Taking Tamsulosin HCl 0.4 MG Capsule 1 capsule Orally daily , Taking Lansoprazole 30 MG Capsule Delayed Release 1 capsule 1/2 to 1 hour before morning meal Orally Once a day , Taking Levothyroxine Sodium 25 MCG Tablet 1 tablet in the morning on an empty stomach Orally Once a day , Taking Hydrocortisone 1 % Cream 1 application to remaining rash on the arms Externally Twice a day * Allergies: N .K.D.A. Objective: * Vitals: W t: 149.2, Temp: 98, BP: 122/78, HR: 62, O2 Sat: 97%, Nurse: reviewed/recorded by lobito, RR: 18. * Examination: G eneral Examination: General Appearance: N AD, alert, pleasant; in lobby area and appears comfortable. H eart: R RR. L ungs: C TAB A&P. A bdomen: b owel sounds present, soft, nontender. N eurologic Exam: a lert and oriented. S kin: n o rash on extremities or trunk; skin is intact. E xtremities: n o leg edema. ? G enitourinary - Male: i ndwelling bowden draining clear yellow urine. Assessment: * Assessment: 1. D ermatitis - L30.9 (Primary) 2 . C losed displaced intertrochanteric fracture of left femur with routine healing - S72.142D 3 . U nspecified hypothyroidism - E03.9 4 . V itamin B12 deficiency - E53.8 5 . H x of arteriosclerotic cardiovascular disease - Z86.79 6 . A cute urinary obstruction - N13.9 7 . B enign hypertrophy of prostate - N40.0 8 . A cute retention of urine - R33.8 9 . G adwoa-esophageal reflux disease without esophagitis - K21.9 Plan: * Treatment: 2. C losed displaced intertrochanteric fracture of left femur with routine healing Refill HYDROcodone-Acetaminophen Tablet, 5-325 MG, 2, Orally, every 4 hrs prn, 60, Refills 0. ? Notes: continues to work with PT; fall prevention 3. U nspecified hypothyroidism Continue Levothyroxine Sodium Tablet, 25 MCG, 1 tablet in the morning on an empty stomach, Orally, Once a day. 4. V itamin B12 deficiency Continue Cyanocobalamin Tablet, 1000 MCG, 1 tablet, Orally, Once a day. 5. H x of arteriosclerotic cardiovascular disease Continue Metoprolol Tartrate Tablet, 25 MG, 1 tab(s), Orally, once daily. 6. A cute urinary obstruction Notes: see Urology note 7. B enign hypertrophy of prostate Continue Tamsulosin HCl Capsule, 0.4 MG, 1 capsule, Orally, Once a day; S tart Finasteride Tablet, 5 MG, 1 tablet, Orally, Once a day, 30 day(s), 30. Notes: Will need to follow with urology after DC in [place] 8. A cute retention of urine Notes: continue with indwelling Bowden Cath 9. G adwoa-esophageal reflux disease without esophagitis Continue Lansoprazole Capsule Delayed Release, 30 MG, 1 capsule 1/2 to 1 hour before morning meal, Orally, Once a day. * Follow Up: w ill need to be followed with MD in [place] * Images: Billing Information: * Visit Code: 50219 subs. level 4. * Procedure Codes: * Electronic signature of Ofelia Dewitt APRN on 02/03/2025 at 02:45 PM EDT Sign off status: Pending * Provider: NATANAEL Ahn Date: 0 11/17/2024 Generated for Anthony mccullough/Shannan/James on: 1 02:45 PM EDT History and Physical Notes * Examination Category Sub-Category Detail Notes Category Not es General Examination Heart: RRR Lungs: CTAB A&P Abdomen: bowel sounds present , soft, nontender Extremities: no leg edema General Appearance: NAD, alert, pleasant ; in lobby area and appears comfortable Skin: no rash on extremiti es or trunk; skin is intact Neurologic Exam: alert and oriented Genitourinary - Male indwell ing bowden draining clear yellow urine
--- OUTSIDE RECORDS SUMMARY | 2024-11-17 08:30 | XMS_ITS ---
Author Organization [facility] Address [facility] [facility] [address] [place] [id number] Care Team Providers Care Retail Reset Merchandiser Name Role Phone Marshall West Primary Care Provider Nikole Dewitt Unavailable [phone] Allergies No Known Allergies REASON FOR VISIT [facility] Medications Medication SIG [...] Encounter Location Date Provider Diagnosis Royce Ramirez [address] [place], [place] [address] [place] Case [id number] 11/17/2024 Nikole Dewitt Dermatitis L30.9 ; C [...] to follow with urology after DC in [place] 11/17/2024 Acute retention of urine (ICD-10 - [...] to follow with urology after DC in [place] Acute retention of urine continue with i ndwelling Bowden Cath Next Appt Details Follow Up: will need to be f preciouslowed with MD in [place], Reason: Provider Name:Marshall Moeller, 03/16/2025 11:45:00 AM, [address] [facility] 36 [facility], [address], [place], [place], [id number], Progress Notes * ARCEOVICENTADOB: (84 yo M)Acc No.[id number]:11/17/2024 Progress Notes Patient: VICENTA PRADO Provider: NATANAEL Ahn :1940 A ge:84 Y S ex:Male Date:11/17/2024 Address:[address] [place] [address], [place], [id number] Pcp:Marshall West Subjective: * Chief Complaints: * 1 . [facility] VISIT. * HPI: H PI: For FU on rash and itching; pt states he no loger itches; plan is for him to be discharged tomorrow and will go home with daughter in [facility]. * ROS: D ERMATOLOGY: Negative for r [...] , [facility] , Prostate biopsy/ Dr. 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 * Hospitalization/Major Diagno stic Procedure: s ee above , [facility] attack 07/13 to 08/03/08, [facility]-pneumonia 08/03 to 08/31/08, [facility]-rehab 09/15 to 10/06/08, [facility] ER-dizziness 06/23/09 to 06/24/09, [facility] after fall with FX left hip; nailing [...] to follow with urology after DC in [place] 8. A cute retention of urine Notes: continue with indwelling Bowden Cath 9. G adwoa-esophageal reflux disease without esophagitis Continue Lansoprazole Capsule Delayed Release, 30 MG, 1 capsule 1/2 to 1 hour before morning meal, Orally, Once a day. * Follow Up: w ill need to be followed with MD in [place] * Images: Billing Information: * Visit Code: 46900 subs. level 4. * Procedure Codes: * Electronic signature of Ofelia Dewitt APRN on 02/01/2025 at 07:09 PM EDT Sign off status: Pending * Provider: NATANAEL Ahn Date: 0 11/17/2024 Generated for Anthony mccullough/Shannan/Blaneitting on: 0 02/01/2025 07:09 PM EDT History [...]
--- OUTSIDE RECORDS SUMMARY | 2024-12-01 07:15 | XMS_ITS ---
[facility] Organization [facility] Address [address] [facility] [address] [place] [id number] Care Team Providers Care Cribber Name Role Phone Marshall West Primary Care Provider Allergies No Known Allergies REASON FOR VISIT rehab f/u Medications Medication SIG (Take, Route, Frequency, Duration) Notes Start Date End Date Status Cyanocobalamin 1000 MCG 1 tablet Orally Once a day Active Aspirin 81 MG 1 tab(s) Orally bid Active HealthyLax 17 GM 1 packet mixed with 8 ounces of fluid Orally Once a day Active Metoprolol Succinate ER 25 MG 1 tablet Orally Once a day; Duration: 30 day(s) 10/13/2024 Active Rolling Walker with seat - 1 as needed 11/19/2024 Active Donepezil HCl 5 MG 1 tablet at bedtime Orally Once a day 12/01/2024 Active HYDROcodone-Acetaminophen 5-325 MG 1 Orally daily 12/01/2024 Active Commode Bedside - as directed 11/19/2024 Active Tamsulosin HCl 0.4 MG 1 capsule Orally O nce a day Active Finasteride 5 MG 1 tablet Orally Once a day Not-Taking Levothyroxine Sodium 25 MCG 1 tablet in the morning on an empty stomach Orally Once a day Active Hydrocortisone 1 % 1 application to remaining rash on the arms Externally Twice a day Not-Taking Lansoprazole 30 MG 1 capsule 1/2 to 1 hour before morning meal Orally Once a day Active Problems Problem Type SNOMED Code ICD Code Onset Dates Problem Status W/U Status Risk Notes Problem Alzheimer's disease (93787441) Alzheimer's dementia (G30.9) Active confirmed Vital Signs Weight 154.4 lbs 12/01/2024 Blood pressure systolic 100 mm Hg 12/02/19 25 Blood pressure diastolic 66 mm Hg 025 Heart Rate 69 /min 12/01/2024 Height 65 in 12/01/2024 BMI 25.69 kg/m2 12/01/2024 Encounters Encounter Location Date Provider Diagnosis [place] [address] [facility] [address] [place] [id number] 12/01/2024 Marshall West Closed displaced intertrochanteric fracture of left femur with routine healing S72.142D ; Alzheimer's dementia G30.9 ; HTN (hypertension) I10 ; Dyslipidemia E78.5 ; Hypothyroidism E03.9 and BMI 25.0-25.9,adult Z68.25 Assessments Encounter Date Diagnosis (ICD Code) Assessment Notes Treatment Notes Treatment Clinical Notes Section Notes 12/01/2024 Closed displaced intertrochanteric fracture of left femur with routine healing (ICD-10 - S72.142D) 12/01/2024 Alzheimer's dementia (ICD-10 - G30.9) 12/01/2024 HTN (hypertension) (ICD-10 - I10) 12/01/2024 Dyslipidemia (ICD-10 - E78.5) 12/01/2024 Hypothyroidism (ICD-10 - E03.9) 12/01/2024 BMI 25.0-25.9,adult (ICD-10 - Z68.25) 12/01/2024 Other Discharge summary with available lab/diagnostic imaging results obtained and reviewed. Discharge medication list reconciled. Appropriate counseling provided. Moderate Complexity Plan Of Treatment Medication Medication Name Sig Start Date Stop Date Notes Donepezil HCl 5 MG 1 tablet at bedtime Orally Once a day 12/01/2024 HYDROcodone-Acetaminophen 5- 325 MG 1 Orally daily 12/01/2024 Treatment Notes Assessment Notes Other Discharge summary wi th available lab/diagnostic imaging results obtained and reviewed. Discharge medication list reconciled. Appropriate counseling provided. Moderate Complexity Next Appt Details Follow Up: 3 Months, Reason: Provider Name:Marshall Montana casie, 03/16/2025 11:45:00 AM, [address] [facility], [address], [place], [id number], Progress Notes * VICENTA ARCEO: (84 yo M)Acc No.[id number]:12/01/2024 Progress Notes Patient: VICENTA PRADO Provider: Marshall West M.D. :1940 A ge:84 Y S ex:Male Date:12/01/2024 Address:[address] [place] [address], [place], [id number] Subjective: * Chief Complaints: * 1 . Rehab f/u. * HPI: H PI: Patient is here today for a Transition of Care Visit. Discharge from the following Facility: [place] [facility] following 08/19/2024 admission to [facility] for left femur fracture and subsequent hip replacement, [place] Discharge date: 11/18/2024 ,Date of phone contact following discharge: 11/18/2024 and 11/20/2024. . He is continuing physical therapy with home health and making slow progress. He still has pain with ambulation. He is averaging about 1 hydrocodone per day. N eurology: Short-term memory seems to be getting worse per his sitter. * ROS: D ERMATOLOGY: no R ortiz. n o H pat. G ASTROENTEROLOGY: no N ausea. n o V omiting. n o D iarrhea.? U ROLOGY: no D ifficulty urinating. n o B lood in urine. 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 * Surgical History: k idney stones , stent 07/13/08-[facility] , stent X 2 on 06/25/[address] [facility] , Prostate biopsy/ Dr. 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 * Hospitalization/Major Diagno stic Procedure: s ee above , [facility]-Heart attack 07/13 to 08/03/08, [facility]-pneumonia 08/03 to 08/31/08, [facility]-rehab 09/15 to 10/06/08, [facility] ER-dizziness 06/23/09 to 06/24/09, [facility] after fall with FX left hip; [...] Does not smoke. * Medications: T aking Commode Bedside - Miscellaneous as directed , Taking Rolling Walker with seat - - 1 as needed , Taking HealthyLax 17 GM Packet 1 packet mixed with 8 ounces of fluid Orally Once a day , Taking Aspirin 81 MG Capsule 1 tab(s) Orally bid , Taking Metoprolol Succinate ER 25 MG Tablet Extended Release 24 Hour 1 tablet Orally Once a day , Taking HYDROcodone-Acetaminophen 5-325 MG Tablet 2 Orally every 4 hrs prn , Taking Cyanocobalamin 1000 MCG Tablet 1 tablet Orally Once a day , Taking Tamsulosin HCl 0.4 MG Capsule 1 capsule Orally Once a day , Taking Lansoprazole 30 MG Capsule Delayed Release 1 capsule 1/2 to 1 hour before morning meal Orally Once a day , Taking Levothyroxine Sodium 25 MCG Tablet 1 tablet in the morning on an empty stomach Orally Once a day , Not-Taking Finasteride 5 MG Tablet 1 tablet Orally Once a day , Not-Taking Hydrocortisone 1 % Cream 1 application to remaining rash on the arms Externally Twice a day , Discontinued Metoprolol Tartrate 25 MG Tablet 1 tab(s) Orally once daily , Discontinued Finasteride 5 MG Tablet 1 tablet Orally Once a day , Medication List reviewed and reconciled with the patient * Allergies: N .K.D.A. Objective: * Vitals: W t: 154.4, Temp: 98.4, BP: 100/66, HR: 69, O2 Sat: 99% on RA, Nurse: SHITAL, Ht: 65, BMI:25.69. * Examination: G eneral Examination: Chante antonio comes in by wheelchair accompanied by his sitter. He is alert and pleasant. He answers questions appropriately. Memory is impaired. Color is normal. Lungs are clear to auscultation. Heart is regular. Lower extremities show trace pretibial edema on the left. Gait not tested. Assessment: * Assessment: 1. C losed displaced intertrochanteric fracture of left femur with routine healing - S72.142D (Primary) 2 . A lzheimer's dementia - G30.9 3 . H TN (hypertension) - I10 4 . D yslipidemia - E78.5 5 . H ypothyroidism - E03.9 6 . B VT 25.0-25.9,adult - Z68.25 Plan: * Treatment: 2. A lzheimer's dementia Start Donepezil HCl Tablet, 5 MG, 1 tablet at bedtime, Orally, Once a day, 30. 3. O thers Notes: Discharge summary with available lab/diagnostic imaging results obtained and reviewed. Discharge medication list reconciled. Appropriate counseling provided. Moderate Complexity * Procedure Codes: 9 9495 [facility]ANS [facility] 14 DAY DISCH, 1111F DSCHR MED/CURENT MED MERGE, G2211 Complex e/m visit add on, 1036F TOBACCO NON-USER, G8420 BMI<30 AND >=22 CALC & DOCU, G8950 PREHTN/HTN BP DOC INDCD F/U DOC, G8752 MOST RECENT SYSTOLIC BP < 140MM HG, G8754 MOST RECENT DIASTOLIC BP < 90MM HG * Follow Up: 3 Months * Images: Billing Information: * Visit Code: 75545 Office Visit, Est Pt., Level 3. * Procedure Codes: 89624 [facility] 14 DAY DISCH. 1111F DSCHR MED/CURENT MED MERGE. G2211 Complex e/m visit add on. 1036F TOBACCO NON-USER. G8420 BMI<30 AND >=22 CALC & DOCU. G8950 PREHTN/HTN BP DOC INDCD F/U DOC. G8752 MOST RECENT SYSTOLIC BP < 140MM HG. G8754 MOST RECENT DIASTOLIC BP < 90MM HG. * Electronic signature of Marshall West MD on 02/03/2025 at 02:45 PM EDT Sign off status: Pending * Provider: Marshall West M.D. Date: 0 12/01/2024 Generated for Rikkii sadia/Shannan/eTransmitting on: 1 02:45 PM EDT History and Physical Notes * HPI (History of Present Illness) Category Sub-Category Detail Notes Category Not es HPI Patient is here toda y for a Transition of Care Visit. Discharge from the following Facility: [place] [facility] following 08/19/2024 admission to [facility] for left femur fracture and subsequent hip replacement, [place] Discharge date: 11/18/2024 ,Date of phone contact following discharge: 11/18/2024 and 11/20/2024. He is continuing physical therapy with home health and making slow progress. He still has pain with ambulation. He is averaging about 1 hydrocodone per day. Examination Category Sub-Category Detail Notes Category Not es General Examination He comes in by wheelchair accompanied by his sitter. He is alert and pleasant. He answers questions appropriately. Memory is impaired. Color is normal. Lungs are clear to auscultation. Heart is regular. Lower extremities show trace pretibial edema on the left. Gait not tested.
--- OUTSIDE RECORDS SUMMARY | 2024-12-01 07:15 | XMS_ITS ---
Author Organization [facility] Address [facility] [facility] [address] [place] [id number] Care Team Providers Care Director Law Enforcement Name Role Phone Marshall West Primary Care [...] W/U Status Risk Notes Problem Alzheimer's disease (24142457) Alzheimer's dementia (G30.9) Active confirmed Vital Signs Weight 154.4 lbs 12/01/2024 Blood pressure systolic 100 mm Hg 12/02/19 25 Blood pressure diastolic 66 mm Hg 025 Heart Rate 69 /min 12/01/2024 Height 65 in 12/01/2024 BMI 25.69 kg/m2 12/01/2024 Encounters Encounter Location Date Provider Diagnosis [place] [facility] [address] [place] [id number] 12/01/2024 Marshall West Closed displaced intertrochanteric fracture [...] 03/16/2025 11:45:00 AM, [address] [facility], [address], [place], [id number], Progress Notes * VICENTA ARCEO: (84 yo M)Acc No.[id number]:12/01/2024 Progress Notes Patient: VICENTA PRADO Provider: Marshall West M.D. :1940 A ge:84 Y S ex:Male Date:12/01/2024 Address:[address] [place] [address], [place], [id number] Subjective: * Chief Complaints: * 1 . Rehab f/u. * HPI: H PI: Patient is here today for a Transition of Care Visit. Discharge from the following Facility: [place] [facility] following 08/19/2024 admission to [facility] for left femur fracture and subsequent hip replacement, [place] Discharge date: 11/18/2024 ,Date of phone contact [...] 08/03/08, [facility]-pneumonia 08/03 to 08/31/08, [facility]-rehab 09/15 to 10/06/08, [facility] ER-dizziness 06/23/09 to 06/24/09, [facility] after fall with FX left hip; [...] H ypothyroidism - E03.9 6 . B PR 25.0-25.9,adult - Z68.25 Plan: * Treatment: 2. A lzheimer's dementia Start Donepezil HCl Tablet, 5 MG, 1 tablet at bedtime, Orally, Once a day, 30. 3. O thers Notes: Discharge summary with available lab/diagnostic imaging results obtained and reviewed. Discharge medication list reconciled. Appropriate counseling provided. Moderate Complexity * Procedure Codes: 9 9495 TRANS CARE [facility] 14 DAY DISCH, 1111F DSCHR MED/CURENT MED MERGE, G2211 Complex e/m visit add on, 1036F TOBACCO NON-USER, G8420 BMI<30 AND >=22 CALC & DOCU, G8950 PREHTN/HTN BP DOC INDCD F/U DOC, G8752 MOST RECENT SYSTOLIC BP < 140MM HG, G8754 MOST RECENT DIASTOLIC BP < 90MM HG * Follow Up: 3 Months * Images: Billing Information: * Visit Code: 59602 Office Visit, Est Pt., Level 3. * Procedure Codes: 44500 [facility] 14 DAY DISCH. 1111F DSCHR MED/CURENT MED MERGE. G2211 Complex e/m visit add on. 1036F TOBACCO NON-USER. G8420 BMI<30 AND >=22 CALC & DOCU. G8950 PREHTN/HTN BP DOC INDCD F/U DOC. G8752 MOST RECENT SYSTOLIC BP < 140MM HG. G8754 MOST RECENT DIASTOLIC BP < 90MM HG. * Electronic signature of Marshall West MD on 02/01/2025 at 07:09 PM EDT Sign off status: Pending * Provider: Marshall West M.D. Date: 0 12/01/2024 Generated for Anthony mccullough/Shannan/eTanastasiasmitting on: 0 02/01/2025 07:09 PM EDT History and Physical Notes * HPI (History of Present Illness) Category Sub-Category Detail Notes Category Not es HPI Patient is here toda y for a Transition of Care Visit. Discharge from the following Facility: [place] [facility] following 08/19/2024 admission to [facility] for left femur fracture and subsequent hip replacement, [place] Discharge date: 11/18/2024 ,Date of phone contact [...]
--- OUTSIDE RECORDS SUMMARY | 2024-12-01 09:30 | XMS_ITS ---
Author Organization [facility] Address [facility] [facility] [address] [place] [id number] Care Team Providers Care Health Care Analyst Name Role Phone Marshall West Primary Care Provider REASON FOR VISIT F/U discharge from [place] Encounters Encounter Location Date Provider Diagnosis [facility] [address] [place] [id number] 12/01/2024 Marshall West Plan Of Treatment Next Appt Details Provider Name:Marshall Moeller, 03/16/2025 11:45:00 AM, [address], [address], [place], [id number], Progress Notes * VICENTA REYDOB: (84 yo M)Acc No.[id number]:12/01/2024 Progress Notes Patient: Michael MCKEON VICENTA CROWLEY Provider: Marshall West M.D. :1940 A ge:84 Y S ex:Male Date:12/01/2024 Address:[address] [facility] [address], [phone] Subjective: * Chief Complaints: * 1 . F/U discharge from [place]. * Medical History: Objective: * Vitals: Assessment: Plan: * Treatment: * Images: Billing Information: * Visit Code: * Procedure Codes: * Electronic signature of Marshall West MD on 02/01/2025 at 07:10 PM EDT Sign off status: Pending * Provider: Marshall West M.D. Date: 0 12/01/2024 Generated for Anthony mccullough/Shannan/James on: 0 02/01/2025 07:10 PM EDT
--- OUTSIDE RECORDS SUMMARY | 2024-12-01 09:30 | XMS_ITS ---
Author Organization [facility] Address [facility] [facility] [address] [place] [id number] Care Team Providers Care Fur Cutting Machine Operator Name Role Phone Marshall West Primary Care Provider [phone] REASON FOR VISIT F/U discharge from [employer] Encounters Encounter Location Date Provider Diagnosis [facility] [address] [place] [id number] 12/01/2024 Marshall West Plan Of Treatment Next Appt Details Provider Name:Marshall Moeller, 03/16/2025 11:45:00 AM, [address], [address], [place], [id number], Progress Notes * VICENTA REYDOB: (84 yo M)Acc No.[id number]:12/01/2024 Progress Notes Patient: Michael MCKEON VICENTA CROWLEY Provider: Marshall West M.D. :1940 A ge:84 Y S ex:Male Date:12/01/2024 Address:[address] [facility] [address], [phone] Subjective: * Chief Complaints: * 1 . F/U discharge from [employer]. * Medical History: Objective: * Vitals: Assessment: Plan: * Treatment: * Images: Billing Information: * Visit Code: * Procedure Codes: * Electronic signature of Marshall West MD on 02/03/2025 at 02:46 PM EDT Sign off status: Pending * Provider: Marshall West M.D. Date: 0 12/01/2024 Generated for Anthony mccullough/Shannan/James on: 1 02:46 PM EDT
[2025-02-01] VITALS (10 sets, daily range): BP systolic 126–166; BP diastolic 63–87; PULSE 54–67; RESP 12–23; TEMP 36.8–37.1; O2SAT 93–98; BMI 26.6
--- NOTE | 2025-02-01 19:04 | ECG_ITS ---
APPROVED REPORT Exam: Resting ECG HR:65 bpm ECG Measurements Heart Rate 65 AXES CA 180 P 32 QRSd 133 QRS -60 QT 441 T -3 QTc 453 Conclusion SINUS RHYTHM LEFT AXIS DEVIATION [QRS AXIS < -30] RIGHT BUNDLE BRANCH BLOCK [120+ ms QRS DURATION, UPRIGHT V1, 40+ ms S IN I/aVL/V4/V5/V6] POSSIBLE LEFT VENTRICULAR HYPERTROPHY [VOLTAGE CRITERIA PLUS LAE OR QRS WIDENING] POSSIBLE ANTEROSEPTAL MYOCARDIAL INFARCTION , OF INDETERMINATE AGE [30 ms Q WAVE IN V1-V4] ABNORMAL ECG UNCONFIRMED REPORT Electronically signed by : MARITA PANDEY, 02/01/2025 22:59:16
--- OUTSIDE RECORDS SUMMARY | 2025-02-01 19:10 | XMS_ITS | Data Portability ---
Author Organization [facility] Address [address] [facility] [place] [address] Assessment Encounter Date Assessment Date Assessment LastModified by Organization Details LastModified Time 07/21/2018 07/21/2018 SURGERY DATE: 07/21/2018 PREOPERATIVE DIAGNOSIS: Elevated PSA and prostate nodule. POSTOPERATIVE DIAGNOSIS: Elevated PSA and prostate nodule. PROCEDURE: Transrectal ultrasound of the prostate and biopsy. ANESTHESIA: Local. COMPLICATIONS: None. CONDITION: Stable. SURGEON: Jose Maria Blank MD INDICATIONS: This is a 77-year-old white male with recent PSA of 19. Prostate examination showed a prostate nodule. He presents for transrectal ultrasound and prostate biopsy. He did perform preoperative enema and oral antibiotics. OPERATIVE NOTE: He was taken to the operating room after informed consent was obtained. On the stretcher, he was placed into the left lateral decubitus position and the transrectal ultrasound probe was placed into the rectum and the prostate was visualized easily. The prostate was measured at 39 cm3. There were hypoechoic areas bilaterally in the peripheral zone. Local anesthetic was placed in each neurovascular bundle and 13 biopsies were then taken in a systematic fashion including through the hypoechoic areas. Specimen was sent off. The transrectal ultrasound probe was removed. The patient tolerated the procedure well. There were no complications. He was discharged home with routine instructions and is to call me in 3 days for results. [id number] Not available 07/22/2018 01:37:47 Plan of Treatment Reminders Order Date Submit Date Provider Last Modified By Organization Details Last Modified Time Details Appointments None record ed. Lab None record ed. Referral None record ed. Procedures None record ed. Surgeries None record ed. Imaging None record ed. Medication Orders None record ed. Patient TargetsNo targets recorded. Patient InstructionsNo instructions recorded. Reason for Referral None Reported. Results Created Date Observation Date Name Description Value Unit Range Abnormal Flag Note LastModifiedBy Organization Detail LastModifiedTime 07/22/19 19 07/21/2018 surgi tima patho logy study surgical pathology procedure SEE BELOW Depar tment of Patho logy Surgi tima Patho logy Repor t NAME: SALINAS ACKERMAN PATH. :[id number] Copy to: Diagn osis: Prost ate needl e core biops ies (A-L) : A) Left base: Benig n prost atic tissu e. B) Left mid: Benig n prost atic tissu e. C) Left apex: Benig n prost atic tissu e. D) Right base: Benig n prost atic tissu e. E) Right mid: Benig n prost atic tissu e. F) Right apex: Benig n prost atic tissu e. G) Left later al base: Benig n prost atic tissu e. H) Left later al mid: Benig n prost atic tissu e. I) Left later al apex: Benig n prost atic tissu e. J) Right later al base: Benig n prost atic tissu e. K) Right later al mid: Benig n prost atic tissu e. L) Right later al apex: Benig n prost atic tissu e. SOURC E OF SPECI MEN: PROST ATE BIOPS Y, A) LEFT BASE B) LEFT MID PROST ATE BIOPS Y, C) LEFT APEX D) RIGHT BASE PROST ATE BIOPS Y, E) RIGHT MID F) RIGHT APEX PROST ATE BIOPS Y, G) LEFT LATER AL BASE H) LEFT LATER AL MID PROST ATE BIOPS Y, I) LEFT LATER AL APEX J) RIGHT LATER AL BASE PROST ATE BIOPS Y, K) RIGHT LATER AL MID L) RIGHT LATER AL APEX CLINI TIMA INFOR MATIO N: [id number] ELEVA ANNIE PSA PSA LEVEL 19.07 Gross Descr iptio n: Recei navarro in forma rosangela label ed with the patie nt's name are twelv e speci mens desig nated as prost ate biops y. All tissu e consi sts of [place] cylin ders 0.[address] If tissu e from two sites is place d in one casse tte, the latte r site is inked black ; e.g. if tissu es from site A and B are in one casse tte, the tissu es from site B are inked . SECTI ON LENGT H IN CENTI METER S A) Left Base 0.8 cm (1 cores ) B) Left Mid 0.4, 0.6 cm (2 cores ) C) Left [place] 0.9 cm (1 cores ) D) Right Base 1.4 cm (1 cores ) E) Right Mid 1.2 cm (1 cores ) F) Right [place] 1.3 cm (1 cores ) G) Left Lat Base 0.9 cm (1 cores ) H) Left Lat Mid 1.2 cm (1 cores ) I) Left Lat [place] 1.0, 1.6 cm (2 cores ) J) Right Lat Base 1.5 cm (1 cores ) K) Right Lat Mid 1.2 cm (1 cores ) L) Right Lat [place] 1.6 cm (1 cores ) JAB 07/22 10:43 AM Micro scopi c Descr iptio n: There is no evide nce of carci noma or high- grade PIN. VISHAL Abbasi M.D. Jeane d Out Date: 07/23 09:49 Page 1 of 1 Not Available [facility] [address] [place] [address], [place], [address], 07/23/2018 09:50:18 Result Notes None recorded. Medical Equipment None Reported. Medications Name Sig Start Date Stop Date Status Note LastModified by Organization Details LastModified Time promethazine-DM 6.25 mg-15 mg/5 mL oral syrup active Not Available Not Availabl e Not Available ciprofloxacin 500 mg tablet active Not Available Not Availabl e Not Available simvastatin 20 mg tablet active Not Available Not Available No t Available lansoprazole 30 mg capsule,delayed release active Not Available Not Available Not Available cefuroxime axetil 500 mg tablet active Not Available Not Available Not Available lisinopril 2.5 mg tablet active Not Available Not Available No t Available metoprolol tartrate 25 mg tablet active Not Available Not Available Not Available Vitals None Recorded Social History None recorded. Functional Status None recorded. Mental Status None recorded. Family History Nothing Reported. Medical History No medical history recorded. Past Encounters Encounter ID Performer Location Encounter Start Date Encounter Closed Date Diagnosis/Indication Diagnosis SNOMED-CT Code Diagnosis ICD10 Code Diagnosis IMO Codes Diagnosis Note [id number] JOSE MARIA BLANK MD SURGERY SCHEDULE [address] [place] [address] 07/21/2018 13:18:22 07/21/2018 13:28:10 Health Concerns Section Related Observation LastModified by Organization Detai ls LastModified Time None Recorded Concern Status LastModified by Organization Details LastModified Time None Recorded Advance Directives Directive None Recorded Payers Insurance Date Sequence Insurance Name Policy Number Policy Smith Covered Member ID Smith Member ID Guarantor Name 07/22/2018 1 [place] [id number] [place] Ar[place] 07/21/2018 2 [employer] - [facility] [employer] [place] [facility] (PPO) [place] [id number] [place] 07/21/2018 2 [place] [id number] [place] [id number] [facility]
--- OUTSIDE RECORDS SUMMARY | 2025-02-01 19:10 | XMS_ITS | Patient Health Record ---
[facility] [address] [facility] [address] [place] [id number] Care Team Providers Care Transfer Agent Name Role Phone Marshall West Primary Care Provider DewittChasidy baltazarine Unavailable [phone] Allergies No Known Allergies Results Component Value Reference Range Notes Urine Culture and Sensitivit y Reviewed date:10/21/2024 11:05:27 PM Interpretation: Performing Lab: Notes/Report: CBC Reviewed date:10/20/2024 08:28:32 AM Interpretation:Abnormal Performing Lab: Notes/Report: Abnormal Urine Culture and Sensitivit y Reviewed date:09/17/2024 03:27:18 PM Interpretation:Enterococcus facal,CC 10-50,000 Performing Lab: Notes/Report: Enterococcus facal,CC 10-50,000 P-Comprehensive Metabolic Pa columba (CMP) Reviewed date:02/16/2024 10:13:21 PM Interpretation:gfr 58 Performing Lab: Notes/Report: Test performed by [facility] , [address], [place] [address] Jj Martinez MD, [employer] CLIA: [id number] Sodium 143 135-145 mmol/L Potassium 4.8 3.5-5.3 [...] Interpretation:Normal Performing Lab: Notes/Report: Test performed by [facility], [address] , [address], [place] [address] Jj Martinez MD, [place] [employer] CLIA: [id number] Cholesterol 161 <200 mg/dL Triglycerides 132 <150 [...] Results: 107 Units: mg/dL % Change: - ------- Test Date: 02/06/2024 LDL Results: 93 Units: mg/dL % Change: -13% P-PSA Reviewed date:02/16/2024 10:13:21 PM Interpretation:8.65 Performing Lab: Notes/Report: Test performed by [facility] [address] , [place] [address] Jj Martinez MD, [place] [employer]ter CLIA: [id number] PSA 8.65 <4.00 ng/mL Please note this is an ultrasensitive PSA assay with a lower limit of detection of 0.014 ng/mL. This test is performed by the [employer] ECLIA methodology. Values obtained with different assay methods or kits cannot be directly compared. RYAN Reviewed date:12/18/2024 02:28:48 PM Interpretation: Performing Lab: Notes/Report: M-Urine Culture(cathed speci men) Reviewed date:12/17/2024 04:30:31 PM Interpretation: Performing Lab: Notes/Report: CUUCA ORGANISM 1: Enterobacter cloacae RX SINGLETARY: R- Resistant S- Susceptible I- Intermediate * Not on [facility] CUUCATH [place] Count >100,000 RX SINGLETARY: R- Resistant S- Susceptible I- Intermediate * Not on [facility] CUUCATH RX SINGLETARY: R- Resistant S- Susceptible I- Intermediate * Not on [facility] CUUCATH RX SINGLETARY: R- Resistant S- Susceptible I- Intermediate * Not on [facility] CUUCATH Enterobacter cloacae : REACTION RX SINGLETARY: R- Resistant S- Susceptible I- Intermediate * Not on [facility] CUUCATH Amikacin <=8 S RX SINGLETARY: R- Resistant S- Susceptible I- Intermediate * Not on [facility] CUUCATH Ampicillin >16 R RX SINGLETARY: R- Resistant S- Susceptible I- Intermediate * Not on [facility] Aztreonam <=2 S RX SINGLETARY: R- Resistant S- Susceptible I- Intermediate * Not on [facility] Cefepime <=1 S RX SINGLETARY: R- Resistant S- Susceptible I- Intermediate * Not on [facility] Ceftazidime <=2 S RX SINGLETARY: R- Resistant S- Susceptible I- Intermediate * Not on [facility] Ceftriaxone <=1 S RX SINGLETARY: R- Resistant S- Susceptible I- Intermediate * Not on [facility] Ciprofloxacin <=0.25 S RX SINGLETARY: R- Resistant S- Susceptible I- Intermediate * Not on [facility] Ertapenem <=0.25 S RX SINGLETARY: R- Resistant S- Susceptible I- Intermediate * Not on [facility] Gentamicin <=2 S RX SINGLETARY: R- Resistant S- Susceptible I- Intermediate * Not on [facility] Levofloxacin <=0.5 S RX SINGLETARY: R- Resistant S- Susceptible I- Intermediate * Not on [facility] Meropenem <=0.5 S RX SINGLETARY: R- Resistant S- Susceptible I- Intermediate * Not on [facility] Nitrofurantoin 64 I RX SINGLETARY: R- Resistant S- Susceptible I- Intermediate * Not on [facility] Tetracycline <=2 S RX SINGLETARY: R- Resistant S- Susceptible I- Intermediate * Not on [facility] Tobramycin <=2 S RX SINGLETARY: R- Resistant S- Susceptible I- Intermediate * Not on [facility] Trimethoprim/Sulfame tho xazole <=0.5/9.5 S RX SINGLETARY: R- Resistant S- Susceptible I- Intermediate * Not on [facility] Piperacillin/Tazobac castañeda <=2/4 S RX SINGLETARY: R- Resistant S- Susceptible I- Intermediate * Not on [facility] RX SINGLETARY: R- Resistant S- Susceptible I- Intermediate * Not on [facility] H-Urine Culture and Sensitiv ity Reviewed date:12/17/2024 04:30:51 PM Interpretation: Performing Lab: Notes/Report: H-Urinalysis (keven specime n) Reviewed date:12/15/2024 09:21:34 PM Interpretation: Performing Lab: Notes/Report: UCOLCATH YELLOW Yellow UAPPCATH CLEAR Clear UPHCATH 5.5 5.0-8.5 USGCATH >= 1.030 1.005-1.030 UPROCATH 1+ Negative UGLUCATH Negative Negative UKETCATH Negative Negative UBLDCATH 2+ Negative UNITCATH POSITIVE Negative UBILCATH Negative Negative UUROCATH 1.0 0.2 EU/dl ULEUCATH 1+ Negative UMICUCATH URINE MICROSCOPIC MICROSCOPIC URBCCATH None 0-3 # /hpf UWBCCATH TNTC 0-3 #/hpf USQEPICATH None 0-5 #/hpf UBACTCATH 3+ None /lpf Reason For Referral No Information Medications Medication SIG (Take, Route, Frequency, Duration) Notes Start Date End Date Status HYDROcodone-Acetamino phen 5-325 MG 1 Orally daily prn 01/26/2025 Active Donepezil HCl 5 MG 1 tablet at bedtime Orally Once a day; Duration: 90 days 12/01/2024 Active Cipro 500 MG 1 tablet Orally every 12 hrs; Duration: 5 days 12/17/2024 Active Metoprolol Succinate ER 25 MG 1 tablet Orally Once a day; Duration: 90 days 10/13/2024 Active Aspirin 81 MG 1 tab(s) Orally bid; Duration: 90 days Active Finasteride 5 MG 1 tablet Orally Once a day Not-Taking Rolling Walker with seat - 1 as needed 11/19/2024 Active Commode Bedside - as directed 11/19/2024 Active Hydrocortisone 1 % 1 application to remaining rash on the arms Externally Twice a day Not-Taking Cyanocobalamin 1000 MCG 1 tablet Orally Once a day Active Regular Diet - as directed CHELSEA; fortified foods; med pass 60ml bid Active HealthyLax 17 GM 1 packet mixed with 8 ounces of fluid Orally Once a day Active Levothyroxine Sodium 25 MCG 1 tablet in the morning on an empty stomach Orally Once a day; Duration: 90 days Active Lansoprazole 30 MG 1 capsule 1/2 to 1 hour before morning meal Orally Once a day; Duration: 90 days Active Tamsulosin HCl 0.4 MG 1 capsule Orally Once a day; Duration: 90 days Active Immunizations Vaccine Route Administration Date Status Comme nts fWmrnuhw-ocnjjcyyv-cqcc care pts. IM Intramuscular 02/26/2011 Administered xFluzone [...] Status Risk Notes Problem Anoxic brain damage (517089243) Anoxic brain damage NOS (348.1) Active confirmed Problem Convulsion (35049933) Seizures, Convulsions, other (780.39) Active confirmed Problem Gastroesophageal reflux disease (752030038) GERD (gastroesophageal reflux disease) (K21.9) Active confirmed Problem Gastro-esophageal reflux disease without esophagitis (933962225) Gastro-esophageal reflux disease without esophagitis (K21.9) Active confirmed Problem Hypertension (61250294) HTN (hypertension) (I10) Active confirmed Problem Seasonal allergy (185085005) Seasonal allergies (J30.2) Active confirmed Problem Pure hypercholesterolemia (327972293) Pure hypercholesterolemia (E78.0) Active confirmed Problem 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) Fracture of unspecified part of neck of unspecified femur, subsequent encounter for 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) Active confirmed Problem Hypothyroidism (70220586) Hypothyroidism (E03.9) Active confirmed Problem History of circulatory system disease (545771463) 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 Problem Acute urinary obstruction (N13.9) Active confirmed Problem Alzheimer's disease (64580764) Alzheimer's dementia (G30.9) Active confirmed Problem Dyslipidemia (238198957) Dyslipidemia (E78.5) Active confirmed Problem Benign prostatic hypertrophy without outflow obstruction (780285141) Benign hypertrophy of prostate (N40.0) Active confirmed Problem Hypothyroidism (41351226) Unspecified hypothyroidism (E03.9) Active confirmed Problem Pure hypercholesterolemia (232056423) Pure hypercholesterolemia (E78.00) Active confirmed Problem Elevated PSA (522706019) Elevated PSA (R97.20) Active confirmed Vital Signs Heart Rate 69 /min 12/01/2024 Respiratory Rate 18 /min 11/17/2024 Blood pressure diastolic 66 mm Hg 12/01/2024 Height 65 in 12/01/2024 Blood pressure systolic 100 mm Hg 12/01/2024 Weight 154.4 lbs 12/01/2024 BMI 25.69 kg/m2 12/01/2024 Encounters Encounter Location Date Provider Diagnosis [facility] [address] [facility] [address] [place] [id number] 02/06/2024 R Darion West HTN (hypertension) I 10 ; Cerumen impaction H61.20 ; Elevated PSA R97.20 ; Dyslipidemia E78.5 and Encounter for immunization Z23 [facility] [address] [facility] [address] [place] [id number] 05/21/2024 R Darion West Olecranon bursitis, left elbow M70.22 [address], [place] [id number] 08/25/2024 Nikole Dewitt HTN (hypertension) I 10 ; Elevated PSA R97.20 ; Dyslipidemia E78.5 ; GERD (gastroesophageal reflux disease) K21.9 ; 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 ; Vitamin B12 deficiency E53.8 ; Urinary retention R33.9 ; Fracture of unspecified part of neck of unspecified femur, subsequent encounter for closed fracture with nonunion S72.009K and Hypothyroidism E03.9 [address], [place] [id number] 09/01/2024 Nikole Dewitt Unspecified hypothyroidism E03.9 ; [...] and Gastro-esophageal reflux disease without esophagitis K21.9 [address], [place] [id number] 10/13/2024 Nikolerodolfo Dewitt Closed displaced intertrochanteric fracture of left femur with routine healing S72.142D ; Unspecified hypothyroidism E03.9 ; Vitamin B12 deficiency E53.8 ; 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 ; Acute urinary obstruction N13.9 ; Benign hypertrophy of prostate N40.0 ; Acute retention of urine R33.8 and Gastro-esophageal reflux disease without esophagitis K21.9 [address], [place] [id number] 11/03/2024 Nikole Dewitt Insect bite, infecte d, initial encounter W57.XXXA and Rash R21 [address] [place], [place] [id number] 11/10/2024 Nikolerodolfo Dewitt Dermatitis L30.9 [address] [place] [id number] 11/17/2024 Nikole Dewitt Dermatitis L30.9 ; C losed displaced intertrochanteric fracture of left femur with routine healing S72.142D ; Unspecified hypothyroidism E03.9 ; Vitamin B12 deficiency E53.8 ; 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 ; Acute urinary obstruction N13.9 ; Benign hypertrophy of prostate N40.0 ; Acute retention of urine R33.8 and Gastro-esophageal reflux disease without esophagitis K21.9 [facility] [address] [facility] [address] [place], [place] [id number] 12/01/2024 R Darion Brett Closed displaced intertrochanteric fracture of left femur with routine healing S72.142D ; Alzheimer's dementia G30.9 ; HTN (hypertension) I10 ; Dyslipidemia E78.5 ; Hypothyroidism E03.9 and BMI 25.0-25.9,adult Z68.25 [facility] [address] [place], [place] [id number] 02/16/2024 R Darion Brett [facility] [address] [place], [place] [id number] 03/02/2024 R Darion Brett HTN (hypertension) I 10 [facility] [address] [place] [id number] 08/20/2024 R Darion Brett [facility] [address] [place], [place] [id number] 08/28/2024 R Darion Brett [facility] [address] [place], [place] [id number] 09/02/2024 Nikole Dewitt [facility] [address] [place], [place] [id number] 09/10/2024 R Darion Brett Closed displaced intertrochanteric fracture of left femur with routine healing S72.142D [facility] [address] [place], [place] [id number] 09/16/2024 Nikole Dewitt [facility] [address] [place], [place] [id number] 09/18/2024 R Darion Brett [facility] [address] [place], [place] [id number] 10/12/2024 R Darion Brett Hx of arteriosclerot ic cardiovascular disease Z86.79 [facility] [address] [place], [place] [id number] 10/15/2024 R Darion Brett [facility] [address] [place], [place] [id number] 10/19/2024 R Darion Brett [facility] [address] [place], [place] [id number] 2024 Nikole Dewitt [facility] [address] [place], [place] [id number] 11/16/2024 R Darion Brett [facility] [address] [place], [place] [id number] 11/19/2024 R Darion Brett [facility] [address] [place], [place] [id number] 11/23/2024 R Darion Brett [facility] [address] [place], [place] [id number] 12/15/2024 R Darion Brett [facility] [address] [place], [place] [id number] 12/15/2024 R Darion Brett Closed displaced intertrochanteric fracture of left femur with routine healing S72.142D [facility] [address] [place], [place] [id number] 12/17/2024 R Darion Brett [facility] [address] [place], [place] [id number] 12/23/2024 R Darion Brett Alzheimer's dementia G30.9 ; Closed displaced intertrochanteric fracture of left femur with routine healing S72.142D ; Vitamin B12 deficiency E53.8 ; Benign hypertrophy of prostate N40.0 ; Gastro-esophageal reflux disease without esophagitis K21.9 and Unspecified hypothyroidism E03.9 [facility] [address] [facility] [address] [place] [id number] 12/24/2024 R Darion Lundy [address] [facility] [address] [place] [id number] 01/11/2025 R Darion Lundy [address] [facility] [address] [place] [id number] 01/26/2025 R Darion West Closed displaced intertrochanteric fracture of left femur with routine healing S72.142D Assessments Encounter Date Diagnosis (ICD Code) Assessment Notes Treatment Notes Treatment Clinical Notes Section Notes 10/12/2024 Hx of arteriosclerotic cardiovascular disease (ICD-10 - Z86.79) 03/02/2024 HTN (hypertension) (ICD-10 - I10) 11/10/2024 Dermatitis (ICD-10 - L30.9) 09/01/2024 Unspecified hypothyroidism (ICD-10 - E03.9) 09/10/2024 Closed displaced intertrochanteric fracture of left femur with routine healing (ICD-10 - S72.142D) 10/13/2024 Unspecified hypothyroidism (ICD-10 - E03.9) 10/13/2024 Closed displaced intertrochanteric fracture of left femur with routine healing (ICD-10 - S72.142D) continues to work with PT; fall prevention 11/03/2024 Rash (ICD-10 - R21) 11/03/2024 Insect bite, infected, initial encounter (ICD-10 - W57.XXXA) numerous and appear infected; will start keflex and MDP; discussed with family and pt for possible causes ot papular outbreak; nursing has already assess room several times for any type of bug; encouraged not to scratch 12/15/2024 Closed displaced intertrochanteric fracture of left femur with routine healing (ICD-10 - S72.142D) 12/23/2024 Alzheimer's dementia (ICD-10 - G30.9) 01/26/2025 Closed displaced intertrochanteric fracture of left femur with routine healing (ICD-10 - S72.142D) 12/01/2024 Alzheimer's dementia (ICD-10 - G30.9) 12/01/2024 Closed displaced intertrochanteric fracture of left femur with routine healing (ICD-10 - S72.142D) 11/17/2024 Dermatitis (ICD-10 - L30.9) Pt currently free of rash; did observe him scratching him scratching his forearm in lobby; did reassess and no rash noted; reinforced no scratching to pt 02/06/2024 HTN (hypertension) (ICD-10 - I10) 02/06/2024 Cerumen impaction (ICD-10 - H61.20) Both ears are irrigated and wax removed. 05/21/2024 Olecranon bursitis, left elbow (ICD-10 - M70.22) 08/25/2024 HTN (hypertension) (ICD-10 - I10) 08/25/2024 Elevated PSA (ICD-10 - R97.20) 09/01/2024 Vitamin B12 deficiency (ICD-10 - E53.8) 09/01/2024 Hx of arteriosclerotic cardiovascular disease (ICD-10 - Z86.79) 02/06/2024 Elevated PSA (ICD-10 - R97.20) 12/01/2024 HTN (hypertension) (ICD-10 - I10) 08/25/2024 Dyslipidemia (ICD-10 - E78.5) 10/13/2024 Vitamin B12 deficiency (ICD-10 - E53.8) 12/23/2024 Closed displaced intertrochanteric fracture of left femur with routine healing (ICD-10 - S72.142D) 11/17/2024 Closed displaced intertrochanteric fracture of left femur with routine healing (ICD-10 - S72.142D) continues to work with PT; fall prevention 11/17/2024 Unspecified hypothyroidism (ICD-10 - E03.9) 10/13/2024 Hx of arteriosclerotic cardiovascular disease (ICD-10 - Z86.79) 09/01/2024 Closed displaced intertrochanteric fracture of left femur with routine healing (ICD-10 - S72.142D) will continue with rehab/PT 12/23/2024 Vitamin B12 deficiency (ICD-10 - E53.8) 12/01/2024 Dyslipidemia (ICD-10 - E78.5) 08/25/2024 GERD (gastroesophageal reflux disease) (ICD-10 - K21.9) 02/06/2024 Dyslipidemia (ICD-10 - E78.5) 08/25/2024 Hx of arteriosclerotic cardiovascular disease (ICD-10 - Z86.79) 02/06/2024 Encounter for immunization (ICD-10 - Z23) 12/23/2024 Benign hypertrophy o f prostate (ICD-10 - N40.0) 12/01/2024 Hypothyroidism (ICD-10 - E03.9) 09/01/2024 Other closed fractur e of left pubis with routine healing, subsequent encounter (ICD-10 - S32.592D) 10/13/2024 Acute urinary obstruction (ICD-10 - N13.9) to see urology, Dr. Figueroa 11/17/2024 Vitamin B12 deficiency (ICD-10 - E53.8) 10/13/2024 Benign hypertrophy o f prostate (ICD-10 - N40.0) 12/23/2024 Gastro-esophageal reflux disease without esophagitis (ICD-10 - K21.9) 12/01/2024 BMI 25.0-25.9,adult (ICD-10 - Z68.25) 11/17/2024 Hx of arteriosclerotic cardiovascular disease (ICD-10 - Z86.79) 09/01/2024 Acute urinary obstruction (ICD-10 - N13.9) 08/25/2024 Vitamin B12 deficiency (ICD-10 - E53.8) 08/25/2024 Urinary retention (ICD-10 - R33.9) bladder training 09/01/2024 Benign hypertrophy o f prostate (ICD-10 - N40.0) 11/17/2024 Acute urinary obstruction (ICD-10 - N13.9) see Urology note 12/23/2024 Unspecified hypothyroidism (ICD-10 - E03.9) 10/13/2024 Acute retention of urine (ICD-10 - R33.8) 10/13/2024 Gastro-esophageal reflux disease without esophagitis (ICD-10 - K21.9) 09/01/2024 Acute retention of urine (ICD-10 - R33.8) 11/17/2024 Benign hypertrophy o f prostate (ICD-10 - N40.0) Will need to follow with urology after DC in [place] 08/25/2024 Fracture of unspecified part of neck [...] [address], [place], [place], [id number], Insurance Providers Payer Name Payer Address Payer Phone Subscriber Number Group Number Insured Name Patient Relationship to Insured Coverage Start Date Coverage End Date MEDICARE PART B [address] [address] [place] [address] [id number] VICENTA RODRIGUES Self - patient is the insured [facility] [address] [place] [address] [id number] VICENTA RODRIGUES Self - patient is the insured Medications [...] proximal femur 08/21/2024 Hospitalization History Reason Date(Month/Year) [facility] after fall with FX left hip; nailing left proximal femur 08/19-08/24/2024 [facility] ER-dizziness 06/23/09 to 06/24/09 [facility]-rehab 09/15 to 10/06/08 [facility]-pneumonia 08/03 to 08/31/08 [facility] 07/13 to 08/03/08 see above
--- NOTE | 2025-02-01 19:17 | CT_ITS ---
PROCEDURE INFORMATION: Exam: CT Abdomen And Pelvis With Contrast Exam date and time: 02/01/2025 8:22 PM Age: 84 years old Clinical indication: Abdominal pain; Localized; Lower; Additional info: Enlarged prostate, abdominal pain, new hematuria TECHNIQUE: Imaging protocol: Computed tomography of the abdomen and pelvis with contrast. Radiation optimization: All CT scans at this facility use at least one of these dose optimization techniques: automated exposure control; mA and/or kV adjustment per patient size (includes targeted exams where dose is matched to clinical indication); or iterative reconstruction. Contrast material: ISOVUE; Contrast volume: 75 ml; Contrast route: IV; COMPARISON: CT ABDOMEN PELVIS WO CON 08/25/2024 2:41 AM FINDINGS: Lungs: Minimal atelectatic changes of the lung bases. Small basilar subpleural cysts. Heart: Heart is large in size. Coronary arteries: There are coronary artery calcifications. Liver: Normal. No mass. Gallbladder and biliary ducts: Normal. No calcified stones. No ductal dilation. Pancreas: Normal. No ductal dilation. Spleen: Granuloma of the spleen. Adrenal glands: Normal. No mass. Kidneys and ureters: Bilateral stable benign-appearing cysts. No hydronephrosis or stones. Stomach and bowel: Diverticulosis. Moderate-sized hiatal hernia containing a portion of the stomach. Appendix: Normal appendix. Intraperitoneal space: Unremarkable. No free air. No significant fluid collection. Vasculature: Infrarenal abdominal aortic aneurysm measuring 3 cm. Moderate atherosclerosis. Lymph nodes: Unremarkable. No enlarged lymph nodes. Urinary bladder: Bladder decompressed with wall thickening. Reproductive: The prostate measures 5 cm transverse and up to 5 cm craniocaudad. Bones/joints: DJD. Left femoral fixation hardware. Chronic L2 mild compression deformity. Soft tissues: Unremarkable. IMPRESSION: Bladder wall thickening secondary to decompression or cystitis.Mild enlargement of the prostate. COMMENTS: Consistent with the [employer]'s Incidental Findings Committee white paper (J Am Jesus Radiol 2018): Any incidental renal lesion less than 1 cm or classified as too small to characterize, or any incidental cystic renal lesion characterized as simple-appearing, is likely benign. No follow-up imaging is recommended for these lesions per consensus recommendations based on imaging criteria.
--- NOTE | 2025-02-01 19:18 | HMH.EDGENADL ---
Discharge Plan Disposition Patient Disposition: Admitted Condition: Fair Clinical Impressions Clinical Impression: UTI (urinary tract infection) Discharge ED Provider: Carlos A Rodrigues General Adult HPI General Chief complaint: Anxiety Stated complaint: Soa, weak, shaking Time Seen by Provider: 02/01/25 19:05 Mode of Arrival: Wheelchair Description of Symptoms (Recalled from ER Triage Doc. by RN): Patient was talking about a triggering event where he saw someone and began to have anxiety and began shaking History of Present Illness HPI narrative: Sal[place] Arceo is an 84-year-old male with past medical history of enlarged prostate status post indwelling Stokes catheter for urinary retention followed by Dr. Cr who presents to the emergency department with family for concern for shaking all over as well as dark red urine. Family states that he has been complaining of lower back pain. They state that he has a chronic indwelling Stokes catheter that they removed earlier today because over last 2 days, his urine has become real dark and like cigarettes . States that he also had leaking around his Stokes catheter today. He states that he has significant redness and irritation around his penis and thighs and they have been treating with [id number] medications without relief. 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 They state that this has happened in the past before. Patient was having full body tremors and hyperventilating and keeps saying I can still see it Related Data Home Medications ?Medication ?Instructions ?Recorded ?Confirmed aspirin 81 mg chewable tablet 81 mg PO BID 06/26/18 02/02/25 Held on 08/24/24. Instructions: Resume on 09/24/24. metoprolol tartrate 25 mg tablet 25 mg PO DAILY 06/26/18 02/02/25 lansoprazole 30 mg capsule,delayed 30 mg PO DAILY 02/02/22 02/02/25 release donepezil 5 mg tablet 5 mg PO HS 02/02/25 02/02/25 hydrocodone 5 mg-acetaminophen 325 1 tab PO DAILY PRN Pain 02/02/25 02/02/25 mg tablet Previous Rx's ?Medication ?Instructions ?Recorded levothyroxine 25 mcg tablet 25 mcg PO DAILYDM 30 days #30 tabs 08/24/24 (Synthroid) tamsulosin 0.4 mg capsule (Flomax) 0.4 mg PO DAILY 90 days #90 caps 01/11/25 Allergies Allergy/AdvReac Type Severity Reaction Status Date / Time No Known Allergies Allergy Verified 01/11/25 10:15 [facility] Disclaimer: The information contained in this section may have been updated after the patient was seen, as this information can be updated by other users. 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 Family History (Updated 02/02/25 @ 09:22 by Edita Dewitt APRN) Other Cancer No significant family history Social History (Updated 02/02/25 @ 00:42 by Janet Alcantara RN) Smoking Status: Never smoker alcohol intake: never substance use type: denies use current occupational status: retired Travel in the last 8 weeks?: None household members: spouse housing: house Have you lived/traveled outside [place] in past 30 days?: No Contact w/someone who lives/traveled outside US past 30 days?: No Exposure to someone with infectious disease in past 14 days?: No Do you have a fever (greater than 100.4 F or 38 C)?: No Have you tested positive for COVID-19?: No Exposed to someone with COVID-19 in past 14 days?: No Do you have a sore throat?: No Do you have a cough?: No Do you have any weakness?: Yes Do you have any diarrhea?: No Are you experiencing any unusual bleeding?: No Do you have any muscle aches/pain?: No Do you have any abdominal pain?: No Are you experiencing loss of taste or smell?: No Other Medical History Have you received the Flu Vaccine for this season: No Have you received the Pneumonia Vaccine: Yes ROS Obtained: Yes Systems reviewed as appropriate & no additional complaints except as documented Physical Exam General General appearance: alert and anxious Comment: tremulous Head Head exam: atraumatic Eye Eye exam: Present normal appearance ENT ENT exam: Present normal external ear exam Neck Neck exam: Present full ROM Chest Chest inspection: Present symmetric chest wall rise Respiratory Respiratory exam: Present normal lung sounds bilaterally and other (tachypneic); Absent respiratory distress or stridor Cardiovascular Cardiovascular exam: Present regular rate and normal rhythm Abdominal Exam Abdominal exam: Present soft; Absent tenderness or guarding exam: Present other (erythema with satellite lesions to the meatus and surrounding inguinal folds) Extremities Exam Extremities exam: Present normal inspection Back Exam Back exam: Present normal inspection Neurological Exam Neurological exam: Present alert and oriented X3 Psychiatric Psychiatric exam: Present anxious Skin Skin exam: Present warm and dry Medical Decision Making Medical Records Screening: Per USPSTF and CDC recommendations, given the prevalence of disease in our region, it is our hospital?s policy to screen for HIV and viral Hepatitis for all patients aged 18 and over and those with ongoing risk factors. Rony Inquiry Pt receiving controlled substance: No Vital Signs: 02/01/25 19:08 02/01/25 20:01 02/01/25 20:30 Temperature 98.7 F Temperature Source Oral Pulse Rate 54 L Pulse Rate [Right Radial] 67 Respiratory Rate 16 23 18 Blood Pressure 129/67 136/64 Blood Pressure [Right Arm] 166/87 H Blood Pressure Mean Blood Pressure Mean [Right Arm] 113 Blood Pressure Source Blood Pressure Source [Right Arm] Automatic Cuff Blood Pressure Position Blood Pressure Position [Right Arm] Supine 02 Sat by Pulse Oximetry 98 97 98 Oxygen Delivery Method Room Air 02/01/25 21:00 02/01/25 21:15 02/01/25 21:30 Temperature Temperature Source Pulse Rate 59 L 59 L 62 Pulse Rate [Right Radial] Respiratory Rate 16 14 13 Blood Pressure 126/63 Blood Pressure [Right Arm] Blood Pressure Mean Blood Pressure Mean [Right Arm] Blood Pressure Source Blood Pressure Source [Right Arm] Blood Pressure Position Blood Pressure Position [Right Arm] 02 Sat by Pulse Oximetry 98 93 L 94 L Oxygen Delivery Method 02/01/25 21:30 02/01/25 22:00 02/01/25 22:30 Temperature Temperature Source Pulse Rate 67 60 55 L Pulse Rate [Right Radial] Respiratory Rate 12 14 16 Blood Pressure 127/70 136/66 131/64 Blood Pressure [Right Arm] Blood Pressure Mean 89 89 Blood Pressure Mean [Right Arm] Blood Pressure Source Blood Pressure Source [Right Arm] Blood Pressure Position Blood Pressure Position [Right Arm] 02 Sat by Pulse Oximetry 94 L 94 L 95 Oxygen Delivery Method 02/01/25 23:11 02/01/25 23:21 Temperature 98.2 F Temperature Source Oral Pulse Rate 61 Pulse Rate [Right Radial] Respiratory Rate 16 16 Blood Pressure 129/82 Blood Pressure [Right Arm] Blood Pressure Mean Blood Pressure Mean [Right Arm] Blood Pressure Source Automatic Cuff Blood Pressure Source [Right Arm] Blood Pressure Position Supine Blood Pressure Position [Right Arm] 02 Sat by Pulse Oximetry 96 Oxygen Delivery Method Room Air Room Air Lab Data Lab Results 02/01/25 19:05: WBC 11.3 H, RBC 4.90, Hgb 14.3, Hct 44.0, MCV 89.8, MCH 29.2, MCHC 32.5, RDW 14.1, Plt Count 433 H, MPV 9.3, Neut % (Auto) 74.8, Lymph % (Auto) 16.5, Dixie % (Auto) 5.0, Eos % (Auto) 2.8, Baso % (Auto) 0.6, Neut # (Auto) 8.4 H, Lymph # (Auto) 1.9, Dixie # (Auto) 0.6, Eos # (Auto) 0.3, Baso # (Auto) 0.1, PT 11.1, INR 1.00, APTT 23.5, VBG pH 7.38, VBG pCO2 38.2, VBG pO2 22.4 L, VBG HCO3 21.9 L, VBG Total CO2 23.1, VBG O2 Saturation 39.7 L, VBG Base Excess -3.2 L, VBG Lactic Acid 7.3 H, Sodium 141, Potassium 4.2, Chloride 102, Carbon Dioxide 22, Anion Gap 21.2 H, BUN 21 H, Creatinine 1.20, Estimated Creat Clear 49, Estimated GFR 58 L, Est GFR ( Amer) 70, Glucose 122 H, Calcium 10.0, Total Bilirubin 1.1, AST 34, ALT 35, Alkaline Phosphatase 144 H, Total Protein 7.8 D, Albumin 4.4, Globulin 3.4 H, Albumin/Globulin Ratio 1.3, Lipase 147 02/01/25 19:55: Urine Color Yellow, Urine Appearance Clear, Urine pH 8.0, Ur Specific [place] 1.015, Urine Protein 2+ A, Urine Glucose (UA) Negative, Urine Ketones 1+, Urine Blood 2+ A, Urine Nitrate Negative, Urine Bilirubin Negative, Urine Urobilinogen 1.0, Ur Leukocyte Esterase 2+ A, Urine RBC None, Urine WBC 20-50, Ur Squamous Epith Cells None, Urine Bacteria Trace 02/01/25 19:05 02/01/25 19:05 Orders (Tests/Meds): ED MEDICATIONS Generic Name Dose Route Start Last Admin Trade Name Ludwin PRN Reason Stop Dose Admin Acetaminophen 650 mg 02/02/25 09:02 Acetaminophen 325mg Tab PO 03/04/25 09:01 Q6HP PRN Fever or Mild Pain (1-3) Aspirin 81 mg 02/02/25 09:00 02/02/25 09:15 Aspirin 81mg Chewable Tablet PO 03/04/25 08:59 81 mg BID CAMMY Administration Donepezil HCl 5 mg 02/02/25 21:00 Donepezil 5mg Tab PO 03/04/25 20:59 HS CAMMY Enoxaparin Sodium 40 mg 02/02/25 09:15 02/02/25 09:14 Enoxaparin 40mg/0.4ml Syringe SUBCUT 03/04/25 09:14 40 mg DAILY CAMMY Administration Azithromycin 500 mg/ Sodium 250 mls @ 250 mls/hr 02/02/25 21:00 Chloride IV 02/12/25 20:59 Q24H CAMMY Ceftriaxone Sodium 1 gm/ 50 mls @ 100 mls/hr 02/02/25 22:00 Sodium Chloride IV 02/12/25 21:59 Q24H CAMMY Levothyroxine Sodium 25 mcg 02/02/25 09:15 02/02/25 09:19 Levothyroxine 25mcg (0.025mg) Tab PO 03/04/25 09:14 25 mcg DAILYDM CAMMY Administration Nystatin 0 gm 02/02/25 09:00 02/02/25 09:14 Nystatin Cream 30gm/Tube TP 03/04/25 08:59 1 appful QID CAMMY Administration Pantoprazole Sodium 40 mg 02/02/25 21:00 Pantoprazole 40mg Tablet PO 03/04/25 20:59 HS CAMMY Tamsulosin HCl 0.4 mg 02/02/25 21:00 Tamsulosin 0.4mg Capsule PO 03/04/25 20:59 HS CAMMY Discontinued Medications Generic Name Dose Route Start Last Admin Trade Name Ludwin PRN Reason Stop Dose Admin Lactated Ringer's 1,000 mls @ 999 mls/hr 02/01/25 19:37 02/01/25 21:30 Lactated Ringer's 1000 Ml Bag IV 02/01/25 20:37 Infused .Q1H1M ONE Infusion Ceftriaxone Sodium 2 gm/ 100 mls @ 200 mls/hr 02/01/25 22:07 02/01/25 22:57 Sodium Chloride IV 02/01/25 22:36 Infused ONCE ONE Infusion Azithromycin 500 mg/ Sodium 250 mls @ 250 mls/hr 02/01/25 22:07 02/01/25 23:27 Chloride IV 02/01/25 22:08 Infused ONCE ONE Infusion Iopamidol 75 ml 02/01/25 20:21 02/01/25 20:26 Iopamidol-370 (76%);100ml Bottle IV 02/01/25 20:22 75 ml ONCE ONE Administration Nystatin 30 gm 02/01/25 19:20 02/01/25 19:33 Nystatin Topical Powder 30gm TP 02/01/25 19:21 30 gm ONCE ONE Administration Sodium Chloride 10 ml 02/01/25 20:21 02/01/25 20:26 Sodium Chloride 0.9% 10ml Syr (Rad Only) IV 02/01/25 20:22 10 ml ONCE ONE Administration ORDERS Category Date Time Status CT abdomen pelvis w con Stat Cat Scan 02/01/25 19:17 Completed CXR --portable [XR chest portable] Stat Exams 02/01/25 19:25 Completed CBC w/Auto Diff [Complete Blood Count Auto Diff] Stat Lab 02/01/25 19:05 Completed CMP [Comprehensive Metabolic Panel] Stat Lab 02/01/25 19:05 Completed Lipase Stat Lab 02/01/25 19:05 Completed PT INR [Prothrombin Time INR] Stat Lab 02/01/25 19:05 Completed PTT [Activated Partial Thrombo Time] Stat Lab 02/01/25 19:05 Completed UA [Urinalysis and Microscopic] Stat Lab 02/01/25 19:55 Completed Blood Culture Stat Micro 02/01/25 20:43 Received Urine Culture Stat Micro 02/01/25 19:55 Received VBG [Venous Blood Gas] Stat RT 02/01/25 19:05 Completed Medical Decision Narrative: Sal[place] Arceo is an 84-year-old male with past medical history of enlarged prostate status post indwelling Stokes catheter for urinary retention followed by Dr. Cr who presents to the emergency department with family for concern for shaking all over as well as dark red urine. Family states that he has been complaining of lower back pain. They state that he has a chronic indwelling Stokes catheter that they removed earlier today because over last 2 days, his urine has become real dark and like cigarettes . States that he also had leaking around his Stokes catheter today. He states that he has significant redness and irritation around his penis and thighs and they have been treating with [id number] medications without relief. 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 They state that this has happened in the past before. Patient was having full body tremors and hyperventilating and keeps saying I can still see it . On arrival, patient is hemodynamically stable. on exam, he is extremely anxious and tremulous but redirectable and calmed with conversation. His urethral meatus is erythematous and there is erythema to the inguinal folds with satellite lesions consistent with a yeast infection, will order nystatin powder. Abdomen is soft and mildly tender at the suprapubic region. Cardiopulmonary exam is unremarkable. Differential diagnosis includes, but is not limited to: panic attack, UTI, pylenephritis, pneumonia, electrolyte derangement, among others. The most morbid conditions were considered and workup was based on these. Patient's workup showed a mild leukocytosis and VBG with significantly elevated lactate of 7.3. Patient was given a fluid bolus and blood cultures were obtained for possible sepsis. UA with 2+ blood leukocyte esterase positive and 20-50WBC consistent with a UTI. Previous cultures show enterobacter susceptible to Rocephin. patient was administered 2g of IV rocephin. CT imaging was interpreted by me personally and shows bladder wall thickening with an enlarged prostate. Given patient's UTI in the setting of elevated WBC and lactate, patient would benefit from admission for continued IV antibiotics. I discussed this with patient and family who were in agreement with this plan. I then discussed the patient's case with Dr. Garcia, who was in agreement for admission at this time. Critical Care Critical Care Time Critical Care Time: No
[2025-02-01 19:23] LABS: Hematocrit 44.0 % (42.0-52.0); Hemoglobin 14.3 g/dL (14.1-18.0); Immature Granulocytes % 0.3 %; Mean Corpuscular HGB Conc 32.5 g/dL (31.8-35.4); Mean Corpuscular Hemoglobin 29.2 pg (27.0-31.2); Mean Corpuscular Volume 89.8 fl (80-94); Nucleated Red Blood Cells % 0 %; Platelet Count 433 K/mm3 (142-424); Red Blood Count 4.90 M/mm3 (4.60-6.20); Red Cell Distribution Width-SD 46.3 fL; White Blood Count 11.3 K/mm3 (4.8-10.8)
--- NOTE | 2025-02-01 19:25 | XR_ITS ---
PROCEDURE INFORMATION: Exam: XR Chest Exam date and time: 02/01/2025 7:39 PM Age: 84 years old Clinical indication: Hyperventilation; Additional info: Hyperventilating TECHNIQUE: Imaging protocol: Radiologic exam of the chest. Views: 1 view. COMPARISON: CT CHEST WO CON 08/25/2024 2:38 AM FINDINGS: Lungs: Slightly reduced lung volumes. Faint right midlung peripheral ground-glass like opacity. Pleural spaces: Unremarkable. No pleural effusion. No pneumothorax. Heart/Mediastinum: The heart is large. Diaphragm: Elevated right hemidiaphragm. Bones/joints: Unremarkable. IMPRESSION: Possible developing infiltrate in the right lung.
--- NOTE | 2025-02-01 19:30 | PC.NURSE ---
Called med/surg to have nystatin sent down
[2025-02-01 19:31] LABS: Activated Partial Thrombo Time 23.5 seconds (22.8-30.6); Alanine Aminotransferase 35 U/L (12-78); Albumin Level 4.4 g/dl (3.5-5.0); Albumin/Globulin Ratio 1.3 (1.1-1.8); Alkaline Phosphatase 144 U/L (38-126); Anion Gap 21.2 mEq/L (5-15); Aspartate Amino Transferase 34 U/L (17-59); Bilirubin,Total 1.1 mg/dl (0.2-1.3); Blood Urea Nitrogen 21 mg/dl (9-20); Calcium 10.0 mg/dl (8.4-10.2); Carbon Dioxide 22 mmol/L (22.0-30.0); Chloride 102 mmol/L (98-107); Creatinine Clearance Estimated 49 mL/min (50-200); Creatinine,Serum 1.20 mg/dl (0.66-1.25); Estimated Glomerular Filt Rate 58 ml/min (>60); GFR (African American) 70 ML/MIN (>60); Globulin 3.4 g/dL (1.3-3.2); Glucose 122 mg/dl (74-100); INR 1.00 (0.9-1.1); Lipase 147 U/L (23-300); Potassium 4.2 mmoL/L (3.5-5.1); Prothrombin Time 11.1 seconds (10.1-12.5); Sodium 141 mmol/L (136-145); Total Protein,Serum 7.8 g/dl (6.3-8.2); VBG HCO3 21.9 mmol/L (23-30); VBG PCO2 38.2 mmol/L (35-51); VBG PH 7.38 mmol/L (7.31-7.41); VBG PO2 22.4 mmol/L (28-40)
[2025-02-01] MEDS: NYSTATIN TOPICAL POWDER 30GM 30 GM TP (19:33)
[2025-02-01 19:36] LABS: Lactate Venous 7.3 mmol/L (0.4-2.0)
--- NOTE | 2025-02-01 19:36 | PC.NURSE ---
critical lab lac 7.3 given from dorita XAVIER
[2025-02-01] MEDS: IOPAMIDOL-370 (76%);100ML BOTTLE 75 ML IV (20:26)
[2025-02-01] MEDS: SODIUM CHLORIDE 0.9% 10ML SYR (RAD ONLY) 10 ML IV (20:26)
[2025-02-01] MEDS: LACTATED RINGERS 1000ML 1,000 ML 999 ML IV (20:27)
[2025-02-01 20:35] LABS: Microscopic, Urine URINE MICROSCOPIC (MICROSCOPIC)
[2025-02-01 20:45] LABS: Bilirubin,Urine Negative (Negative); Color,Urine YELLOW (Yellow); Glucose,Urine (UA) Negative (Negative); Ketones,Urine 1+ (Negative); Leukocyte Esterase,Urine 2+ (Negative); PH,Urine 8.0 (5.0-8.5); Protein,Urine 2+ (Negative); Specific Gravity, Urine 1.015 (1.005-1.030); Urobilinogen,Urine 1.0 EU/dl (0.2)
[2025-02-01 22:21] LABS: Bacteria,Urine Trace /lpf; WBC,Urine 20-50 #/hpf (0-3)
[2025-02-01] MEDS: AZITHROMYCIN 500 MG in 0.9 % SODIUM CHLORIDE 250 ML 250 MG IV (22:23)
--- NOTE | 2025-02-01 23:04 | PC.NURSE ---
Tried to call report; jermaine WALKER unable to take report at this time
[2025-02-01 23:33] LABS: Reflex Lactic Add Lactic Reflex
[2025-02-02 00:07] LABS: Lactic Acid Follow Up (RFLX 1) 1.4 mmol/L (0.7-2.1)
[2025-02-02 00:39] VITALS: BP 131/58; PULSE 58; RESP 16; TEMP 36.6; O2SAT 96; BMI 23.1
--- NOTE | 2025-02-02 02:04 | PC.NURSE ---
Pt. is unsure of all the medications that he takes, states that he takes a handful every day. Medication reconciliation unable to be completed at his time. Meds that are reconciled were checked against medications that were listed in the external pharmacy.
[2025-02-02 04:00] VITALS: BP 145/64; PULSE 52; RESP 16; TEMP 36.4; O2SAT 96; BMI 23.1
--- NOTE | 2025-02-02 04:05 | PC.NURSE ---
Pt. was admitted overnight from the ED with c/o dark urine output, feeling weak and had tremors all over. Pt. has a chronic bowden due to urinary retention and BPH. Pt. had bowden taken out for leaking and dark urine output. one day prior to ER visit Bowden cath was replced in the ED. urine output is clear yellow urine, Pt. lives at home with his wafe and they have a home health caregiver to help them both at home,. Pt. denies any pain, or shortness of breath. Pt. does c/o rash and redness to penis, both sides of the groin and buttocks. Nystatin powder was applied in the ED. Pt. very tired, sleeping on and off this shift. Personal items and call rocha in reach. Bed in low and locked position, safety measures in place.
--- NOTE | 2025-02-02 07:55 | HMH.PHAINT1 ---
Pharmacy Intervention Comments: Home medication list verified using list from outpatient pharmacy
[2025-02-02 08:00] VITALS: BP 132/60; PULSE 58; RESP 19; TEMP 36.6; O2SAT 97
--- NOTE | 2025-02-02 08:06 | EXP.HP ---
History of Present Illness *Admission Date: 02/02/25 *Reason for visit:: Tremors: Hematuria *History of present illness: Patient is an 80-year-old male with a history of urinary tract infections, past fracture left hip, BPH, urinary retention with long-term Stokes catheter. Back pain. Debility, atrial fibrillation, hypothyroidism and hypertension who was brought to the emergency room with his family after noted tremors. Also Stokes catheter had been draining dark urine and had been removed. Patient is a poor historian at present and does not remember much of yesterday but says he has not been eating or drinking well and just felt sick yesterday. He describes nausea and dry heaves. He denies any diarrhea. He denies any upper respiratory symptoms. The following is documentation from the emergency room. General Adult HPI General Chief complaint: Anxiety Stated complaint: Soa, weak, shaking Time Seen by Provider: 02/01/25 19:05 Mode of Arrival: Wheelchair Description of Symptoms (Recalled from ER Triage Doc. by RN): Patient was talking about a triggering event where he saw someone and began to have anxiety and began shaking History of Present Illness HPI narrative: Salinas Arceo is an 84-year-old male with past medical history of enlarged prostate status post indwelling Stokes catheter for urinary retention followed by Dr. Cr who presents to the emergency department with family for concern for shaking all over as well as dark red urine. Family states that he has been complaining of lower back pain. They state that he has a chronic indwelling Stokes catheter that they removed earlier today because over last 2 days, his urine has become real dark and like cigarettes . States that he also had leaking around his Stokes catheter today. He states that he has significant redness and irritation around his penis and thighs and they have been treating with [id number] medications without relief. 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 They state that this has happened in the past before. Patient was having full body tremors and hyperventilating and keeps saying I can still see it With evaluation in the emergency room white blood cell count was found to be 11,300. Hemoglobin 14.3 and hematocrit of 44. Blood chemistries show normal electrolytes with a BUN of 21 and creatinine of 1.2. Urine showed 2+ protein and 2+ blood 2+ leuk esterase trace of bacteria.Chest x-ray revealed possible developing infiltrate in the right lung. Abdominal pelvis CT revealed bladder wall thickening secondary to decompression or cystitis mild enlargement of the prostate. This a.m. patient denies any nausea and does not feel like he has vomited during the night. He cannot remember much of yesterday or actually why he came to the hospital. He was able to eat a few bites for breakfast but states he just did not want anything. In the emergency room patient did receive a liter of IV fluids. He was given a dose of IV Zithromax and Rocephin. He was also started on the nystatin powder for rash. [facility] Disclaimer: The information contained in this section may have been updated after the patient was seen, as this information can be updated by other users. 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 Family History (Updated 02/02/25 @ 09:22 by Edita Dewitt APRN) Other Cancer No significant family history Social History (Updated 02/02/25 @ 00:42 by Janet Alcantara RN) Smoking Status: Never smoker alcohol intake: never substance use type: denies use current occupational status: retired Travel in the last 8 weeks?: None household members: spouse housing: house Have you lived/traveled outside [place] in past 30 days?: No Contact w/someone who lives/traveled outside US past 30 days?: No Exposure to someone with infectious disease in past 14 days?: No Do you have a fever (greater than 100.4 F or 38 C)?: No Have you tested positive for COVID-19?: No Exposed to someone with COVID-19 in past 14 days?: No Do you have a sore throat?: No Do you have a cough?: No Do you have any weakness?: Yes Do you have any diarrhea?: No Are you experiencing any unusual bleeding?: No Do you have any muscle aches/pain?: No Do you have any abdominal pain?: No Are you experiencing loss of taste or smell?: No Other Medical History Have you received the Flu Vaccine for this season: Yes Have you received the Pneumonia Vaccine: Yes Review of Systems Constitutional Constitutional: Denies body ache(s), Denies headache(s), Reports poor appetite and Reports lethargy Eyes Eyes: Reports change in vision ENT Ears, Nose, Mouth, and Throat: Denies otalgia, Denies headache(s), Denies post nasal drip and Denies sore throat *Cardiovascular Cardiovascular: Denies chest pain, Denies dyspnea, Denies edema and Denies palpitations *Respiratory Respiratory: Denies chest congestion, Denies cough and Denies dyspnea *Gastrointestinal Gastrointestinal: Denies abdominal pain, Denies change in stool character, Reports dyspepsia, Reports nausea and Reports vomiting *Genitourinary Genitourinary: Denies dysuria and Reports hematuria Comments: Indwelling Stokes catheter. Removed yesterday and reinserted in the emergency room. Urine is clear and yellow at present *Musculoskeletal Musculoskeletal: Reports abnormal gait (Uses a walker. Cannot recall any recent falls.) *Neurologic Neurologic: Reports abnormal gait (Uses a walker. Cannot recall any recent falls.) and Denies headache(s) Endocrine Endocrine: Denies palpitations Meds Home Medications and Allergies Home Medications ?Medication ?Instructions ?Recorded ?Confirmed ?Type aspirin 81 mg chewable tablet 81 mg PO BID 06/26/18 02/02/25 History Held on 08/24/24. Instructions: Resume on 09/24/24. metoprolol tartrate 25 mg tablet 25 mg PO DAILY 06/26/18 02/02/25 History lansoprazole 30 mg capsule,delayed 30 mg PO DAILY 02/02/22 02/02/25 History release levothyroxine 25 mcg tablet 25 mcg PO DAILYDM 30 days #30 tabs 08/24/24 02/02/25 Rx (Synthroid) tamsulosin 0.4 mg capsule (Flomax) 0.4 mg PO DAILY 90 days #90 caps 01/11/25 02/02/25 Rx donepezil 5 mg tablet 5 mg PO HS 02/02/25 02/02/25 History hydrocodone 5 mg-acetaminophen 325 1 tab PO DAILY PRN Pain 02/02/25 02/02/25 History mg tablet New Prescriptions to Start Prescriptions: Allergies Allergy/AdvReac Type Severity Reaction Status Date / Time No Known Allergies Allergy Verified 01/11/25 10:15 Exam Data for Last 24 hours Vital signs and Labs for Last 24 Hours: Temp Pulse Resp BP Pulse Ox O2 Del Method 97.6 F 52 L 16 145/64 H 96 Room Air 02/02/25 04:00 02/02/25 04:00 02/02/25 04:00 02/02/25 04:00 02/02/25 04:00 02/02/25 06:51 Laboratory Results - last 24 hr 02/01/25 19:05: WBC 11.3 H, RBC 4.90, Hgb 14.3, Hct 44.0, MCV 89.8, MCH 29.2, MCHC 32.5, RDW 14.1, Plt Count 433 H, MPV 9.3, Neut % (Auto) 74.8, Lymph % (Auto) 16.5, [place] % (Auto) 5.0, Eos % (Auto) 2.8, Baso % (Auto) 0.6, Neut # (Auto) 8.4 H, Lymph # (Auto) 1.9, [place] # (Auto) 0.6, Eos # (Auto) 0.3, Baso # (Auto) 0.1, PT 11.1, INR 1.00, APTT 23.5, VBG pH 7.38, VBG pCO2 38.2, VBG pO2 22.4 L, VBG HCO3 21.9 L, VBG Total CO2 23.1, VBG O2 Saturation 39.7 L, VBG Base Excess -3.2 L, VBG Lactic Acid 7.3 H, Sodium 141, Potassium 4.2, Chloride 102, Carbon Dioxide 22, Anion Gap 21.2 H, BUN 21 H, Creatinine 1.20, Estimated Creat Clear 49, Estimated GFR 58 L, Est GFR ( Amer) 70, Glucose 122 H, Calcium 10.0, Total Bilirubin 1.1, AST 34, ALT 35, Alkaline Phosphatase 144 H, Total Protein 7.8 D, Albumin 4.4, Globulin 3.4 H, Albumin/Globulin Ratio 1.3, Lipase 147 02/01/25 19:55: Urine Color Yellow, Urine Appearance Clear, Urine pH 8.0, Ur Specific [place] 1.015, Urine Protein 2+ A, Urine Glucose (UA) Negative, Urine Ketones 1+, Urine Blood 2+ A, Urine Nitrate Negative, Urine Bilirubin Negative, Urine Urobilinogen 1.0, Ur Leukocyte Esterase 2+ A, Urine RBC None, Urine WBC 20-50, Ur Squamous Epith Cells None, Urine Bacteria Trace 02/01/25 23:11: Lactate 1.4 I & O for Last 24 hours: Intake & Output 01/30/25 01/31/25 02/01/25 02/02/25 11:59 11:59 11:59 11:59 Intake Total 1350 / 1350 Output Total 450 / 450 Balance 900 / 900 Weight 144 lb Constitutional Constitutional: no acute distress *Routine HEENT Exam Head: Present normocephalic and atraumatic Eye: Present PERRL; Absent conjunctival icterus, scleral injection or conjunctivae pink ENT: Present mucous membranes moist and oropharynx clear *Routine Neck Exam Neck: Present supple and carotid bruit (Versus radiating murmur); Absent lymphadenopathy or thyromegaly *Routine Respiratory Exam Respiratory: Present CTA bilaterally (Anteriorly and posteriorly) *Routine Cardiovascular Exam Cardiovascular: Present RRR and murmur *Routine Abdominal Exam Abdominal: Present soft and normoactive bowel sounds; Absent tenderness or distended *Routine Rectal Exam Rectal:: deferred *Routine Genitalia Exam Genitalia:: normal male Comment:: Stokes cath in place to bedside drainage with clear yellow urine *Routine Extremities Exam Extremities: Absent edema or calf tenderness *Routine Skin Exam Skin: Present rash (Erythemic rash in bilateral groin regions extending up into inner buttocks.) *Routine Neurological Exam Neurological: Present alert, moving all extremities and normal speech; Absent tremors Comments: Poor memory Assessment and Plan *Assessment and plan (1) UTI (urinary tract infection): Status: Acute Category: Medical Code(s): N39.0 - Urinary tract infection, site not specified (2) Urinary retention: Status: Acute Category: Medical Code(s): R33.9 - Retention of urine, unspecified (3) Hypertension: Status: Chronic Category: Medical Code(s): I10 - Essential (primary) hypertension (4) Dermatitis associated with moisture from urinary incontinence: Status: Acute Category: Medical Code(s): L25.8 - Unspecified contact dermatitis due to other agents; R32 - Unspecified urinary incontinence (5) Abnormal CXR: Status: Acute Category: Medical Code(s): R93.89 - Abnormal findings on diagnostic imaging of other specified body structures (6) Dementia: Status: Acute Category: Medical Code(s): F03.90 - Unspecified dementia, unspecified severity, without behavioral disturbance, psychotic disturbance, mood disturbance, and anxiety (7) Physical debility: Status: Acute Category: Medical Code(s): R53.81 - Other malaise Plan pt has been started on ABX; home meds have been ordered; will follow labs and pending cultures. Dr. Nolasco entry - Saw patient, agree with above note.
[2025-02-02] MEDS: NYSTATIN CREAM 30GM/TUBE TP ×4 (09:14→20:01)
[2025-02-02] MEDS: ASPIRIN 81MG CHEWABLE TABLET 81 MG PO ×2 (09:15→20:01)
[2025-02-02] MEDS: LEVOTHYROXINE 25MCG (0.025MG) TAB 25 MCG PO (09:19)
--- NOTE | 2025-02-02 11:14 | HMH.PTEV ---
Physical Therapy Evaluation Rehab PT IP Evaluation Start: 02/02/25 10:03 Freq: ONCE Status: Active Protocol: Document 02/02/25 11:07 CLEOPATRA (Rec: 02/02/25 11:13 CLEOPATRA [id number]) Subjective/History History History Per H&P: Patient is an 80-year-old male with a history of urinary tract infections, past fracture left hip, BPH, urinary retention with long-term Stokes catheter. Back pain. Debility, atrial fibrillation, hypothyroidism and hypertension who was brought to the emergency room with his family after noted tremors. Also Stokes catheter had been draining dark urine and had been removed. Patient is a poor historian at present and does not remember much of yesterday but says he has not been eating or drinking well and just felt sick yesterday. He describes nausea and dry heaves. He denies any diarrhea. He denies any upper respiratory symptoms. Subjective Subjective Pt reports he lives with his in a single-story home. Pt uses a RW for ambulation. Pt reports he can not walk without a RW and some assistance. Pt reports him and his have a 24/7 caregiver who assists with mobility, meals, and bathing tasks. [facility] How much help from another person do you currently need... Turning from your None back to your side while in a flat bed without using bedrails? Moving from lying on None back to sitting on the side of a flat bed without using bedrails? Moving to and from a None bed to a chair ( including a wheelchair)? Standing up from a None chair using your arms? (e.g., wheelchair, bedside chair) Walking in hospital None room? Climbing 3-5 steps A little with a railing? Mobility Score 23 Mobility Level [facility] Mobility 7 Walk 25 feet or more Mobility Calculator Rehab PT IP Eval Objective Appearance Patient Behavior Appropriate,Cooperative Patient Orientation Person,Place,Situation Difficulty following none instructions Speech Pattern Clear Ambulation Patient Able to Yes Ambulate Ambulation Observation IP General Gait No Deviations/Normal Pattern Observation Ambulation Distance 50 (feet) Ambulation Assistive Rolling Walker Device Ambulation Ability Supervision/Stand by Balance Ability to Arise Able, uses arms to help Sitting Balance Steady, safe Standing Balance Steady, wide stance Dynamic Sitting Good Balance Ability Dynamic Standing Fair Balance Ability Transfers Bed Transfer Ability Independent Sit to Stand Bed Supervision/Stand by Transfer Ability Rehab PT IP prob,goals,plan Problems Date of Evaluation: 02/02/25 Rehab Potential Rehab Potential Innapropriate for Skilled Therapy Discharge Plan PT Discharge Plan Pt demo'd modified IND ambulation in room. Pt demo'd good functional standing balance with RW. Pt appears to be at his baseline with mobility and would not benefit from skilled acute care PT. Eval Complexity Eval Charge Codes 05056 - Moderate Complexity PHYSICIAN CERTIFICATION: I certify the specified therapy services for Salinas Arceo are required, authorized, and reviewed every 30 days.
--- NOTE | 2025-02-02 13:43 | HMH.OTEV ---
OT Evaluation Rehab OT IP Evaluation Start: 02/02/25 10:03 Freq: ONCE Status: Active Protocol: Document 02/02/25 13:40 [facility] (Rec: 02/02/25 13:43 [facility] [id number]) Rehab OT IP Assessment Subjective History Per H&P: Patient is an 80-year-old male with a history of urinary tract infections, past fracture left hip, BPH, urinary retention with long-term Stokes catheter. Back pain. Debility, atrial fibrillation, hypothyroidism and hypertension who was brought to the emergency room with his family after noted tremors. Also Stokes catheter had been draining dark urine and had been removed. Patient is a poor historian at present and does not remember much of yesterday but says he has not been eating or drinking well and just felt sick yesterday. He describes nausea and dry heaves. He denies any diarrhea. He denies any upper respiratory symptoms. Subjective Pt reports he lives with his in a single-story home. Pt uses a RW during functional transfers. Pt reports him and his have a / caregiver who assists with heavier contamination consultant, IADLS, and bathing tasks. Objective Patient Orientation Person,Place,Birthday Right Upper WFL Extremity Gross ROM Left Upper Extremity WFL Gross ROM Bed Mobility bed mobility-scooting,bed mobility - supine/sit Assist Level Supervision/Stand by Transfer Training Sit/Stand Transfer Assist Level Supervision/Stand by Lower Body Dressing Standby Assistance Ability Performing Toilet Standby Assistance Hygiene Ability Overall Commode/ Standby Assistance Toilet Transfer Ability Commode/Toilet Sit to/from Ambulatory Transfer Technique Commode/Toilet Grab Bars Transfer Assistive Devices Rehab OT IP prob,goals,plan Problems Date of Evaluation: 02/02/25 Rehab Potential Rehab Potential Innapropriate for Skilled Therapy Discharge Plan OT Discharge Plan Pt appears to be at his baseline with functional transfers and ADL independence. Pt can return home with his and caregiver once he is medically stable per physician. Eval Complexity Eval Charge Codes 96004 - Moderate Complexity PHYSICIAN CERTIFICATION: I certify the specified therapy services for Salinas Arceo are required, authorized, and reviewed every 30 days.
[2025-02-02 16:00] VITALS: BP 145/68; PULSE 55; RESP 18; TEMP 36.4; O2SAT 99
[2025-02-02 20:00] VITALS: BP 134/73; PULSE 60; RESP 16; TEMP 36.5; O2SAT 99
[2025-02-02] MEDS: AZITHROMYCIN 500 MG in 0.9 % SODIUM CHLORIDE 250 ML 250 MG IV (20:00)
[2025-02-02] MEDS: PANTOPRAZOLE 40MG TABLET 40 MG PO (20:01)
[2025-02-02] MEDS: TAMSULOSIN 0.4MG CAPSULE 0.4 MG PO (20:01)
--- NOTE | 2025-02-03 03:51 | PC.NURSE ---
Pt AOx4, pleasant. No acute changes this shift. VSS. Currently resting in bed with eyes open. Denies pain or any additional needs at this time. Bed is low, locked, and call light is in reach.
[2025-02-03 04:00] VITALS: BP 131/61; PULSE 54; RESP 16; TEMP 36.7; O2SAT 98; BMI 23.1
[2025-02-03] MEDS: LEVOTHYROXINE 25MCG (0.025MG) TAB 25 MCG PO (06:00)
[2025-02-03] MEDS: ACETAMINOPHEN 325MG TAB 650 MG PO (06:00)
[2025-02-03 06:24] LABS: Hematocrit 35.5 % (42.0-52.0); Hemoglobin 11.9 g/dL (14.1-18.0); Immature Granulocytes % 0.1 %; Mean Corpuscular HGB Conc 33.5 g/dL (31.8-35.4); Mean Corpuscular Hemoglobin 29.3 pg (27.0-31.2); Mean Corpuscular Volume 87.4 fl (80-94); Nucleated Red Blood Cells % 0 %; Platelet Count 321 K/mm3 (142-424); Red Blood Count 4.06 M/mm3 (4.60-6.20); Red Cell Distribution Width-SD 44.5 fL; White Blood Count 6.9 K/mm3 (4.8-10.8)
[2025-02-03 07:45] VITALS: BP 119/68; PULSE 60; RESP 16; TEMP 36.5; O2SAT 95
--- NOTE | 2025-02-03 08:27 | EXP.ACUTE.PN ---
Subjective *Date: 02/03/25 *Time: 08:57 Interval history: Patient is feeling well today. He denies any pain and states he slept well and ate a good breakfast. Medical Exam Vital signs and Labs for Last 24 Hours: Vital Signs Temp Pulse Resp BP Pulse Ox O2 Del Method 02/03/25 07:45 97.7 F 60 16 119/68 95 Room Air 02/03/25 07:00 Room Air 02/03/25 05:00 Room Air 02/03/25 04:00 98.0 F 54 L 16 131/61 98 Room Air 02/03/25 03:00 Room Air 02/03/25 01:00 Room Air 02/02/25 23:00 Room Air 02/02/25 21:00 Room Air 02/02/25 20:00 97.7 F 60 16 134/73 99 Room Air 02/02/25 20:00 Room Air 02/02/25 18:52 Room Air 02/02/25 17:00 Room Air 02/02/25 16:00 97.5 F L 55 L 18 145/68 H 99 Room Air 02/02/25 15:00 Room Air 02/02/25 11:24 Room Air 02/02/25 11:00 Room Air 02/02/25 09:00 Room Air Intake and Output 02/02/25 02/03/25 02/03/25 19:59 03:59 11:59 Intake Total 690 / 1110 300 / 1110 120 / 1110 Output Total 0 / 650 500 / 650 150 / 650 Balance 690 / 460 -200 / 460 -30 / 460 Intake: Intake, Oral Amount 690 / 810 120 / 810 Intake, Total IV Amount 300 / 300 Azithromycin 500 mg In 0.9 % 250 / 250 Sodium Chloride 250 ml @ 250 mls/hr IV Q24H [facility] Rx#:[id number] Ceftriaxone Sodium 1 gm In 0.9 50 / 50 % Sodium Chloride 50 ml @ 100 mls/hr IV Q24H [facility] Rx#:[id number] Output: Output, Urine Amount 0 / 650 500 / 650 150 / 650 Other: Number of Voids 0 Number of Unmeasured Voids 0 Weight 143 lb 14.4 oz Patient Weight 02/03/25 11:59 Weight 143 lb 14.4 oz Laboratory Results - last 24 hr 02/03/25 06:16: WBC 6.9 D, RBC 4.06 L, Hgb 11.9 L, Hct 35.5 L, MCV 87.4, MCH 29.3, MCHC 33.5, RDW 13.8, Plt Count 321 D, MPV 9.5, Neut % (Auto) 57.4, Lymph % (Auto) 27.3, [place] % (Auto) 7.5, Eos % (Auto) 6.2, Baso % (Auto) 1.5, Neut # (Auto) 4.0, Lymph # (Auto) 1.9, [place] # (Auto) 0.5, Eos # (Auto) 0.4, Baso # (Auto) 0.1 I & O for Labs for Last 24 Hours: Intake & Output 01/31/25 02/01/25 02/02/25 02/03/25 11:59 11:59 11:59 11:59 Intake Total 1710 / 1710 1110 / 1110 Output Total 450 / 450 650 / 650 Balance 1260 / 1260 460 / 460 Weight 144 lb 143 lb 14.4 oz Microbiology Reports for the Last 24 Hours: Microbiology 02/01/25 20:43 Blood Blood Culture - Preliminary NO GROWTH AFTER 24 HOURS 02/01/25 19:49 Blood Blood Culture - Preliminary NO GROWTH AFTER 24 HOURS Constitutional: Present no acute distress Respiratory: Present CTA bilaterally Cardiac: Present Reg Rate and Rhythm GI: Present soft; Absent distention or tenderness Extremities: Absent edema Skin: Present intact Neuro: Present alert and awake Assessment and Plan *Assessment and plan (1) UTI (urinary tract infection): Status: Acute Category: Medical Code(s): N39.0 - Urinary tract infection, site not specified (2) Urinary retention: Status: Acute Category: Medical Code(s): R33.9 - Retention of urine, unspecified (3) Hypertension: Status: Chronic Category: Medical Code(s): I10 - Essential (primary) hypertension (4) Dermatitis associated with moisture from urinary incontinence: Status: Acute Category: Medical Code(s): L25.8 - Unspecified contact dermatitis due to other agents; R32 - Unspecified urinary incontinence (5) Abnormal CXR: Status: Acute Category: Medical Code(s): R93.89 - Abnormal findings on diagnostic imaging of other specified body structures (6) Dementia: Status: Acute Category: Medical Code(s): F03.90 - Unspecified dementia, unspecified severity, without behavioral disturbance, psychotic disturbance, mood disturbance, and anxiety (7) Physical debility: Status: Acute Category: Medical Code(s): R53.81 - Other malaise Plan White blood cell count has normalized. Awaiting urine and blood cultures. Dr. Nolasco entry - Saw patient, agree with above note.
[2025-02-03 08:42] LABS: Anion Gap 11.1 mEq/L (5-15); Blood Urea Nitrogen 14 mg/dl (9-20); Calcium 8.8 mg/dl (8.4-10.2); Carbon Dioxide 25 mmol/L (22.0-30.0); Chloride 107 mmol/L (98-107); Creatinine Clearance Estimated 51 mL/min (50-200); Creatinine,Serum 0.90 mg/dl (0.66-1.25); Estimated Glomerular Filt Rate 80 ml/min (>60); GFR (African American) 97 ML/MIN (>60); Glucose 86 mg/dl (74-100); Potassium 4.1 mmoL/L (3.5-5.1); Sodium 139 mmol/L (136-145)
--- NOTE | 2025-02-03 09:13 | XR_ITS ---
FINAL REPORT TECHNIQUE: Chest PA & Lateral CLINICAL HISTORY: F/U possible pneumonia COMPARISON: 02/01/2025 FINDINGS: 2 views of the chest were performed. There is mild cardiomegaly. The mediastinum is within normal limits. There are mild chronic changes in both lungs. There is no acute cardiopulmonary process. There are no pleural effusions. There is no pneumothorax. The bony thorax appears intact. IMPRESSION: No acute cardiopulmonary process. Reviewed, Interpreted and Dictated by Teto Valiente MD Transcribed by Ciera Beck Authenticated and [facility]
[2025-02-03] MEDS: NYSTATIN CREAM 30GM/TUBE TP ×4 (09:15→21:12)
[2025-02-03] MEDS: ASPIRIN 81MG CHEWABLE TABLET 81 MG PO ×2 (09:15→21:11)
--- OUTSIDE RECORDS SUMMARY | 2025-02-03 14:45 | XMS_ITS | Patient Health Record ---
[facility] Organization [facility] [address] [facility] [address] [place] [id number] Care Team Providers Care Casino Games Dealer Name Role Phone [facility] West Primary Care Provider Nikole Dewitt Unavailable [phone] Allergies No Known Allergies Results Component Value Reference Range Notes Urine Culture and Sensitivit y Reviewed date:09/17/2024 03:27:18 PM Interpretation:Enterococcus facal,CC 10-50,000 Performing Lab: Notes/Report: Enterococcus facal,CC 10-50,000 H-CBC Reviewed date:02/03/2025 12:02:39 PM Interpretation: Performing Lab: Notes/Report: WBC 6.9 4.8-10.8 K/mm3 Delta: 11.3 o n 02[birth year]1904 RBC 4.06 4.60-6.20 M/mm3 HGB 11.9 14.1-18.0 g/dL HCT 35.5 42.0-52.0 % MCV 87.4 80-94 fl MCH 29.3 27.0-31.2 pg MCHC 33.5 31.8-35.4 g/dL RDW-SD 44.5 RDW 13.8 11.5-17.5 % PLT 321 142-424 K/mm3 Delta: 433 on 02/[birth year]1904 MPV 9.5 7.4-10.4 fl NE% 57.4 37.0-80.0 % LY% 27.3 10-50 % MO% 7.5 1.7-9.3 % EO% 6.2 0.1-12.0 % BA% 1.5 0.1-2.0 % NRBC% 0 IG% 0.1 NE# 4.0 1.8-7.8 K/mm3 LY# 1.9 0.7-4.5 K/mm3 MO# 0.5 0.1-1.0 K/mm3 EO# 0.4 0.0-0.4 Kmm3 BA# 0.1 0-0.2 K/mm3 NRBC# 0 IG# 0.01 H-BMP Reviewed date:02/03/2025 12:02:39 PM Interpretation: Performing Lab: Notes/Report: NA 139 136-145 mmol/L K 4.1 3.5-5.1 mmoL/L CL 107 98-107 mmol/L CO2 25 22.0-30.0 mmol/L GAP 11.1 5-15 mEq/L BUN 14 9-20 mg/dl Delta: 21 on 02/01/25 CREATT 0.90 0.66-1.25 mg/dl Delta: 1.20 on 02/01/25 CRCLE 51 50-200 mL/min GFRAA 97 >60 ML/MIN Delta: 70 on 02/01/25 EGFR 80 >60 ml/min GLU 86 74-100 mg/dl CA 8.8 8.4-10.2 mg/dl RYAN Reviewed date:12/18/2024 02:28:48 PM Interpretation: Performing Lab: Notes/Report: CBC Reviewed date:10/20/2024 08:28:32 AM Interpretation:Abnormal Performing Lab: Notes/Report: Abnormal Urine Culture and Sensitivit y Reviewed date:10/21/2024 11:05:27 PM Interpretation: Performing Lab: Notes/Report: M-Urine Culture(cathed speci men) Reviewed date:12/17/2024 04:30:31 PM Interpretation: Performing Lab: Notes/Report: CUUCATH ORGANISM 1: Enterobacter cloacae RX SINGLETARY: R- Resistant S- Susceptible I- Intermediate * Not on [facility] CUUCATH [place] Count >100,000 RX SINGLETARY: R- Resistant S- Susceptible I- Intermediate * [facility] RX SINGLETARY: R- Resistant S- Susceptible I- Intermediate * [facility] CUUCATH RX SINGLETARY: R- Resistant S- Susceptible I- Intermediate * Not on [facility] Enterobacter cloacae : REACTION RX SINGLETARY: R- Resistant S- Susceptible I- Intermediate * Not on [facility] Amikacin <=8 S RX SINGLETARY: R- Resistant S- Susceptible I- Intermediate * Not on [facility] Ampicillin >16 R RX SINGLETARY: R- Resistant S- Susceptible I- Intermediate * Not on [facility] Aztreonam <=2 S RX SINGLETARY: R- Resistant S- Susceptible I- Intermediate * Not on [facility] Cefepime <=1 S RX SINGLETARY: R- Resistant S- Susceptible I- Intermediate * Not on [facility] Ceftazidime <=2 S RX SINGLETARY: R- Resistant S- Susceptible I- Intermediate * Not on [facility] Ceftriaxone <=1 S RX SINGLETARY: R- Resistant S- Susceptible I- Intermediate * Not on [facility] Ciprofloxacin <=0.25 S RX SINGLETARY: R- Resistant S- Susceptible I- Intermediate * Not on [facility] Ertapenem <=0.25 S RX SINGLETARY: R- Resistant S- Susceptible I- Intermediate * Not on [facility] Gentamicin <=2 S RX SINGLETARY: R- Resistant S- Susceptible I- Intermediate * Not on [facility] Levofloxacin <=0.5 S RX SINGLETARY: R- Resistant S- Susceptible I- Intermediate * Not on [facility] Meropenem <=0.5 S RX SINGLETARY: R- Resistant S- Susceptible I- Intermediate * Not on [facility] Nitrofurantoin 64 I RX SINGLETARY: R- Resistant S- Susceptible I- Intermediate * Not on [facility] Tetracycline <=2 S RX SINGLETARY: R- Resistant S- Susceptible I- Intermediate * Not on [facility] Tobramycin <=2 S RX SINGLETARY: R- Resistant S- Susceptible I- Intermediate * Not on [facility] Trimethoprim/Sulfame tho xazole <=0.5/9.5 S RX SINGLETARY: R- Resistant S- Susceptible I- Intermediate * Not on [facility] CUUCATH Piperacillin/Tazobac castañeda <=2/4 S RX SINGLETARY: R- Resistant S- Susceptible I- Intermediate * Not on [facility] Formul[facility] CUUCATH RX SINGLETARY: R- Resistant S- Susceptible I- Intermediate * Not on [facility] Formulary H-Urine Culture and Sensitiv ity Reviewed date:12/17/2024 04:30:51 PM Interpretation: Performing Lab: Notes/Report: H-Urinalysis (cathed specime n) Reviewed date:12/15/2024 09:21:34 PM Interpretation: [...] None 0-5 #/hpf UBACTCATH 3+ None /lpf P-Comprehensive Metabolic Pa columba (CMP) Reviewed date:02/16/2024 10:13:21 PM Interpretation:gfr 58 Performing Lab: Notes/Report: CLIA: [id number] Jj Martinez MD, Library Circulation Technician [address] [place] [address] , [address], [place] [address] Test performed by [facility], [facility] Sodium 143 135-145 mmol/L Potassium 4.8 3.5-5.3 [...] Interpretation:Normal Performing Lab: Notes/Report: Test performed by [employer], [address] , [place] [address] Jj Martinez MD, Library Circulation Technician CLIA: [id number] Cholesterol 161 <200 mg/dL Triglycerides 132 <150 [...] Interpretation:8.65 Performing Lab: Notes/Report: Test performed by [facility] [address] [place] [address] , [address], [place] [address] Jj Martinez MD, Library Circulation Technician CLIA: [id number] PSA 8.65 <4.00 ng/mL Please note this is an ultrasensitive PSA assay with a lower limit of detection of 0.014 ng/mL. This test is performed by the [employer] ECLIA methodology. Values obtained with different assay methods or kits cannot be directly compared. Reason For Referral No Information Medications Medication [...] Vaccine Route Administration Date Status Comme nts gWrimods-clzntvijr-yvoi care pts. IM Intramuscular 02/26/2011 Administered xFluzone [...] Status Risk Notes Problem Anoxic brain damage (703223641) Anoxic brain damage NOS (348.1) Active confirmed Problem Convulsion (91312914) Seizures, Convulsions, other (780.39) Active confirmed Problem Gastroesophageal reflux disease (809675023) GERD (gastroesophageal reflux disease) (K21.9) Active confirmed Problem Gastro-esophageal reflux disease without esophagitis (008574886) Gastro-esophageal reflux disease without esophagitis (K21.9) Active confirmed Problem Hypertension (43148154) HTN (hypertension) (I10) Active confirmed Problem Seasonal allergy (567236149) Seasonal allergies (J30.2) Active confirmed Problem Pure hypercholesterolemia (115913458) Pure hypercholesterolemia (E78.0) Active confirmed Problem 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) Fracture of unspecified part of neck of unspecified femur, subsequent encounter for 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) Active confirmed Problem Hypothyroidism (94352078) Hypothyroidism (E03.9) Active confirmed Problem History of circulatory system disease (169982918) 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 Problem Acute urinary obstruction (N13.9) Active confirmed Problem Alzheimer's disease (48537508) Alzheimer's dementia (G30.9) Active confirmed Problem Dyslipidemia (940310146) Dyslipidemia (E78.5) Active confirmed Problem Benign prostatic hypertrophy without outflow obstruction (025420592) Benign hypertrophy of prostate (N40.0) Active confirmed Problem Hypothyroidism (44743665) Unspecified hypothyroidism (E03.9) Active confirmed Problem Pure hypercholesterolemia (910938312) Pure hypercholesterolemia (E78.00) Active confirmed Problem Elevated PSA (436063124) Elevated PSA (R97.20) Active confirmed Vital Signs Heart Rate 69 /min 12/01/2024 Respiratory Rate 18 /min 11/17/2024 Blood pressure diastolic 66 mm Hg 12/01/2024 Height 65 in 12/01/2024 Blood pressure systolic 100 mm Hg 12/01/2024 Weight 154.4 lbs 12/01/2024 BMI 25.69 kg/m2 12/01/2024 Encounters Encounter Location Date Provider Diagnosis [place] [address] [place] [id number] 02/06/2024 [facility] West HTN (hypertension) I 10 ; Cerumen impaction H61.20 ; Elevated PSA R97.20 ; Dyslipidemia E78.5 and Encounter for immunization Z23 [facility] [address] [place], [place] [id number] 05/21/2024 R Darion Ort[place]et Olecranon bursitis, left elbow M70.22 [address] [place], [place] [id number] 08/25/2024 Nikole Dewitt HTN (hypertension) I 10 ; Elevated PSA R97.20 ; Dyslipidemia E78.5 ; GERD (gastroesophageal reflux disease) K21.9 ; 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 ; Vitamin B12 deficiency E53.8 ; Urinary retention R33.9 ; Fracture of unspecified part of neck of unspecified femur, subsequent encounter for closed fracture with nonunion S72.009K and Hypothyroidism E03.9 [address] [place], [place] [id number] 09/01/2024 Nikole Dewitt Unspecified hypothyroidism E03.9 ; [...] and Gastro-esophageal reflux disease without esophagitis K21.9 [address] [place], [place] [id number] 10/13/2024 Nikole Dewitt Closed displaced intertrochanteric fracture of left femur with routine healing S72.142D ; Unspecified hypothyroidism E03.9 ; Vitamin B12 deficiency E53.8 ; 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 ; Acute urinary obstruction N13.9 ; Benign hypertrophy of prostate N40.0 ; Acute retention of urine R33.8 and Gastro-esophageal reflux disease without esophagitis K21.9 [address] [place], [place] [id number] 11/03/2024 Nikole Dewitt Insect bite, infecte d, initial encounter W57.XXXA and Rash R21 [address] [place], [place] [id number] 11/10/2024 Nikole Dewitt Dermatitis L30.[address] [facility] [address] [place], [place] [id number] 11/17/2024 Nikole Dewitt Dermatitis L30.9 ; C losed displaced intertrochanteric fracture of left femur with routine healing S72.142D ; Unspecified hypothyroidism E03.9 ; Vitamin B12 deficiency E53.8 ; 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 ; Acute urinary obstruction N13.9 ; Benign hypertrophy of prostate N40.0 ; Acute retention of urine R33.8 and Gastro-esophageal reflux disease without esophagitis K21.9 [facility] [address] [facility] [address] [place], [place] [id number] 12/01/2024 R Darion Brett Closed displaced intertrochanteric fracture of left femur with routine healing S72.142D ; Alzheimer's dementia G30.9 ; HTN (hypertension) I10 ; Dyslipidemia E78.5 ; Hypothyroidism E03.9 and BMI 25.0-25.9,adult Z68.25 [facility] [address] [facility] [address] [place], [place] [id number] 02/16/2024 R Darion Brett [facility] [address] [facility] [address] [place], [place] [id number] 03/02/2024 R Darion Brett HTN (hypertension) I 10 [facility] [address] [facility] [address] [place], [place] [id number] 08/20/2024 R Darion Brett [facility] [address] [facility] [address] [place], [place] [id number] 08/28/2024 R Darion Brett [facility] [address] [facility] [address] [place], [place] [id number] 09/02/2024 Nikole Dewitt [facility] [address] [facility] [address] [place] [id number] 09/10/2024 R Darion Brett Closed displaced intertrochanteric fracture of left femur with routine healing S72.142D [facility] [address] [facility] [address] [place] [id number] 09/16/2024 Nikole Randallond [facility] [address] [place], [place] [id number] 09/18/2024 R Darion Brett [facility] [address] [place], [place] [id number] 10/12/2024 R Darion Brett Hx of arteriosclerot ic cardiovascular disease Z86.79 [facility] [address] [place], [place] [id number] 10/15/2024 R Darion Brett [facility] [address] [place], [place] [id number] 10/19/2024 R Darion Brett [facility] [address] [place] [id number] 2024 Nikole Randallond [facility] [address] [place], [place] [id number] 11/16/2024 R Darion Brett [facility] [address] [place], [place] [id number] 11/19/2024 R Darion Brett [facility] [address] [place] [id number] 11/23/2024 R Darion Brett [facility] [address] [place], [place] [id number] 12/15/2024 R Darion Brett [facility] [address] [place], [place] [id number] 12/15/2024 R Darion Brett Closed displaced intertrochanteric fracture of left femur with routine healing S72.142D [facility] [address] [place], [place] [id number] 12/17/2024 R Darion Brett [facility] [address] [place], [place] [id number] 12/23/2024 R Darion Brett Alzheimer's dementia G30.9 ; Closed displaced intertrochanteric fracture of left femur with routine healing S72.142D ; Vitamin B12 deficiency E53.8 ; Benign hypertrophy of prostate N40.0 ; Gastro-esophageal reflux disease without esophagitis K21.9 and Unspecified hypothyroidism E03.9 [facility] [address] [facility] [address] [place], [place] [id number] 12/24/2024 R Darion [place] [address] [facility] [address] [place] [id number] 01/11/2025 R Darion West [facility] [address] [facility] [address] [facility] [address] [place], [place] [id number] 01/26/2025 R Darion West Closed displaced intertrochanteric fracture of left femur with routine healing S72.142D Assessments Encounter Date Diagnosis (ICD Code) Assessment Notes Treatment Notes Treatment Clinical Notes Section Notes 02/06/2024 HTN (hypertension) (ICD-10 - I10) 02/06/2024 Cerumen impaction (ICD-10 - H61.20) Both ears are irrigated and wax removed. 03/02/2024 HTN (hypertension) (ICD-10 - I10) 05/21/2024 Olecranon bursitis, left elbow (ICD-10 - M70.22) 08/25/2024 HTN (hypertension) (ICD-10 - I10) 09/01/2024 Vitamin B12 deficiency (ICD-10 - E53.8) 09/01/2024 Unspecified hypothyroidism (ICD-10 - E03.9) 08/25/2024 Elevated PSA (ICD-10 - R97.20) 09/10/2024 Closed displaced intertrochanteric fracture of left femur with routine healing (ICD-10 - S72.142D) 10/12/2024 Hx of arteriosclerotic cardiovascular disease (ICD-10 - Z86.79) 11/03/2024 Rash (ICD-10 - R21) 11/03/2024 Insect bite, infected, initial encounter (ICD-10 - W57.XXXA) numerous and appear infected; will start keflex and MDP; discussed with family and pt for possible causes ot papular outbreak; nursing has already assess room several times for any type of bug; encouraged not to scratch 11/10/2024 Dermatitis (ICD-10 - L30.9) 11/17/2024 Dermatitis (ICD-10 - L30.9) Pt currently free of rash; did observe him scratching him scratching his forearm in lobby; did reassess and no rash noted; reinforced no scratching to pt 10/13/2024 Unspecified hypothyroidism (ICD-10 - E03.9) 10/13/2024 Closed displaced intertrochanteric fracture of left femur with routine healing (ICD-10 - S72.142D) continues to work with PT; fall prevention 12/01/2024 Alzheimer's dementia (ICD-10 - G30.9) 12/01/2024 Closed displaced intertrochanteric fracture of left femur with routine healing (ICD-10 - S72.142D) 12/15/2024 Closed displaced intertrochanteric fracture of left femur with routine healing (ICD-10 - S72.142D) 12/23/2024 Alzheimer's dementia (ICD-10 - G30.9) 01/26/2025 Closed displaced intertrochanteric fracture of left femur with routine healing (ICD-10 - S72.142D) 12/23/2024 Closed displaced intertrochanteric fracture of left femur with routine healing (ICD-10 - S72.142D) 11/17/2024 Closed displaced intertrochanteric fracture of left femur with routine healing (ICD-10 - S72.142D) continues to work with PT; fall prevention 12/01/2024 HTN (hypertension) (ICD-10 - I10) 10/13/2024 Vitamin B12 deficiency (ICD-10 - E53.8) 09/01/2024 Hx of arteriosclerotic cardiovascular disease (ICD-10 - Z86.79) 02/06/2024 Elevated PSA (ICD-10 - R97.20) 08/25/2024 Dyslipidemia (ICD-10 - E78.5) 08/25/2024 GERD (gastroesophageal reflux disease) (ICD-10 - K21.9) 02/06/2024 Dyslipidemia (ICD-10 - E78.5) 09/01/2024 Closed displaced intertrochanteric fracture of left femur with routine healing (ICD-10 - S72.142D) will continue with rehab/PT 10/13/2024 Hx of arteriosclerotic cardiovascular disease (ICD-10 - Z86.79) 11/17/2024 Unspecified hypothyroidism (ICD-10 - E03.9) 12/23/2024 Vitamin B12 deficiency (ICD-10 - E53.8) 12/01/2024 Dyslipidemia (ICD-10 - E78.5) 12/23/2024 Benign hypertrophy o f prostate (ICD-10 - N40.0) 11/17/2024 Vitamin B12 deficiency (ICD-10 - E53.8) 12/01/2024 Hypothyroidism (ICD-10 - E03.9) 10/13/2024 Acute urinary obstruction (ICD-10 - N13.9) to see urology, Dr. Figueroa 09/01/2024 Other closed fractur e of left pubis with routine healing, subsequent encounter (ICD-10 - S32.592D) 08/25/2024 Hx of arteriosclerotic cardiovascular disease (ICD-10 - Z86.79) 02/06/2024 Encounter for immunization (ICD-10 - Z23) 08/25/2024 Vitamin B12 deficiency (ICD-10 - E53.8) 09/01/2024 Acute urinary obstruction (ICD-10 - N13.9) 10/13/2024 Benign hypertrophy o f prostate (ICD-10 - N40.0) 11/17/2024 Hx of arteriosclerotic cardiovascular disease (ICD-10 - Z86.79) 12/01/2024 BMI 25.0-25.9,adult (ICD-10 - Z68.25) 12/23/2024 Gastro-esophageal reflux disease without esophagitis (ICD-10 - K21.9) 12/23/2024 Unspecified hypothyroidism (ICD-10 - E03.9) 10/13/2024 Acute retention of urine (ICD-10 - R33.8) 11/17/2024 Acute urinary obstruction (ICD-10 - N13.9) see Urology note 09/01/2024 Benign hypertrophy o f prostate (ICD-10 - N40.0) 08/25/2024 Urinary retention (ICD-10 - R33.9) bladder training 08/25/2024 Fracture of unspecified part of neck of unspecified femur, subsequent encounter for closed fracture with nonunion (ICD-10 - S72.009K) 09/01/2024 Acute retention of urine (ICD-10 - R33.8) 11/17/2024 Benign hypertrophy o f prostate (ICD-10 - N40.0) Will need to follow with urology after DC in [place] 10/13/2024 Gastro-esophageal reflux disease without esophagitis (ICD-10 - K21.9) 09/01/2024 Accidental fall, subsequent encounter (ICD-10 - W19.XXXD) Fall prevention 08/25/2024 Hypothyroidism (ICD-10 - E03.9) 11/17/2024 Acute retention of urine (ICD-10 - R33.8) continue with indwelling Stokes Cath 09/01/2024 Gastro-esophageal reflux disease without esophagitis (ICD-10 - K21.9) 11/17/2024 Gastro-esophageal reflux disease without esophagitis (ICD-10 - K21.9) 05/21/2024 Other Swede-O well to ear canals 08/25/2024 Other continue with PT; Fall prevention 12/01/2024 Other Discharge summary with available lab/diagnostic imaging results obtained and reviewed. Discharge medication list reconciled. Appropriate counseling provided. Moderate Complexity Plan Of Treatment Next Appt Details Provider Name:Marshall Moeller, 03/16/2025 11:45:00 AM, [address], [place], [place], [id number], Insurance Providers Payer Name Payer Address Payer Phone Subscriber Number Group Number Insured Name Patient Relationship to Insured Coverage Start Date Coverage End Date MEDICARE PART B [address] [address] [place] [address] [id number] VICENTA RODRIGUES Self - patient is the insured [facility] [address] [place] [address] [id number] VICENTA RODRIGUES Self - patient is the [...] proximal femur 08/21/2024 Hospitalization History Reason Date(Month/Year) [facility] after fall with FX left hip; nailing left proximal femur 08/19-08/24/2024 [facility] ER-dizziness 06/23/09 to 06/24/09 [facility]-rehab 09/15 to 10/06/08 [facility]-pneumonia 08/03 to 08/31/08 [facility] attack 07/13 to 08/03/08 see above
[2025-02-03 16:00] VITALS: BP 127/57; PULSE 62; RESP 17; TEMP 36.7; O2SAT 95
--- NOTE | 2025-02-03 18:52 | PC.NURSE ---
PT IS RESTING IN BED. ALERT AND ORIENTED X4. EATING AND DRINKING WELL. LUNG SOUNDS CLEAR. ABDOMEN SOFT/NON TENDER WITH ACTIVE BOWEL SOUNDS. REDNESS NOTED TO SCROTUM. PT TOLERATED SITTING UP IN THE CHAIR FOR SEVERAL HOURS THIS SHIFT. WILL CONTINUE TO MONITOR.
[2025-02-03 20:00] VITALS: BP 147/67; PULSE 66; RESP 16; TEMP 36.8; O2SAT 95
[2025-02-03] MEDS: PANTOPRAZOLE 40MG TABLET 40 MG PO (21:11)
[2025-02-03] MEDS: TAMSULOSIN 0.4MG CAPSULE 0.4 MG PO (21:11)
[2025-02-03] MEDS: AZITHROMYCIN 500 MG in 0.9 % SODIUM CHLORIDE 250 ML 250 MG IV (21:11)
[2025-02-04 04:00] VITALS: BP 146/75; PULSE 61; RESP 16; TEMP 36.8; O2SAT 95; BMI 23.5
--- NOTE | 2025-02-04 05:51 | PC.NURSE ---
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 Cardiac diet. He has received IV abx overnight. Pt is very pleasant Call Light is with in reach of the PT. KENNETH HOWARD RN
[2025-02-04] MEDS: LEVOTHYROXINE 25MCG (0.025MG) TAB 25 MCG PO (07:01)
[2025-02-04 08:00] VITALS: BP 148/83; PULSE 77; RESP 16; TEMP 36.4; O2SAT 92
--- NOTE | 2025-02-04 08:23 | EXP.ACUTE.PN ---
Subjective *Date: 02/04/25 *Time: 08:49 Interval history: Patient is feeling better today. He is eating well and sleeping well and denies any pain. He is anxious to go home. Medical Exam Vital signs and Labs for Last 24 Hours: Vital Signs Temp Pulse Resp BP Pulse Ox O2 Del Method 02/04/25 08:00 97.5 F L 77 16 148/83 H 92 L Room Air 02/04/25 07:00 Room Air 02/04/25 05:00 Room Air 02/04/25 04:00 98.2 F 61 16 146/75 H 95 Room Air 02/04/25 03:00 Room Air 02/04/25 01:00 Room Air 02/03/25 23:00 Room Air 02/03/25 21:00 Room Air 02/03/25 20:00 Room Air 02/03/25 20:00 98.2 F 66 16 147/67 H 95 Room Air 02/03/25 18:42 Room Air 02/03/25 17:00 Room Air 02/03/25 16:00 98.1 F 62 17 127/57 L 95 Room Air 02/03/25 15:00 Room Air 02/03/25 12:57 Room Air 02/03/25 11:00 Room Air Intake and Output 02/03/25 02/04/25 02/04/25 19:59 03:59 11:59 Intake Total 720 / 1140 420 / 1140 Output Total 500 / 1500 450 / 1500 550 / 1500 Balance 220 / -360 -30 / -360 -550 / -360 Intake: Intake, Oral Amount 720 / 840 120 / 840 Intake, Total IV Amount 300 / 300 Azithromycin 500 mg In 0.9 % 250 / 250 Sodium Chloride 250 ml @ 250 mls/hr IV Q24H [facility] Rx#:[id number] Ceftriaxone Sodium 1 gm In 0.9 50 / 50 % Sodium Chloride 50 ml @ 100 mls/hr IV Q24H [facility] Rx#:[id number] Output: Output, Urine Amount 500 / 1500 450 / 1500 550 / 1500 Other: Number of Unmeasured Voids 0 0 0 Weight 146 lb 8 oz Patient Weight 02/04/25 11:59 Weight 146 lb 8 oz Laboratory Results - last 24 hr 02/03/25 06:16: Sodium 139, Potassium 4.1, Chloride 107, Carbon Dioxide 25, Anion Gap 11.1, BUN 14 D, Creatinine 0.90 D, Estimated Creat Clear 51, Estimated GFR 80, Est GFR ( Amer) 97 D, Glucose 86, Calcium 8.8 I & O for Labs for Last 24 Hours: Intake & Output 02/01/25 02/02/25 02/03/25 02/04/25 11:59 11:59 11:59 11:59 Intake Total 1710 / 1710 1110 / 1110 1140 / 1140 Output Total 450 / 450 650 / 650 1500 / 1500 Balance 1260 / 1260 460 / 460 -360 / -360 Weight 144 lb 143 lb 14.4 oz 146 lb 8 oz Microbiology Reports for the Last 24 Hours: Microbiology 02/01/25 20:43 Blood Blood Culture - Preliminary NO GROWTH AFTER 48 HOURS 02/01/25 19:49 Blood Blood Culture - Preliminary NO GROWTH AFTER 48 HOURS 02/01/25 19:55 Urine,Clean Catch Urine Culture - Preliminary Constitutional: Present no acute distress Respiratory: Present CTA bilaterally Cardiac: Present Reg Rate and Rhythm GI: Present soft; Absent distention or tenderness Extremities: Absent edema Skin: Present intact Neuro: Present alert and awake Assessment and Plan *Assessment and plan (1) UTI (urinary tract infection): Status: Acute Category: Medical Code(s): N39.0 - Urinary tract infection, site not specified (2) Urinary retention: Status: Acute Category: Medical Code(s): R33.9 - Retention of urine, unspecified (3) Hypertension: Status: Chronic Category: Medical Code(s): I10 - Essential (primary) hypertension (4) Dermatitis associated with moisture from urinary incontinence: Status: Acute Category: Medical Code(s): L25.8 - Unspecified contact dermatitis due to other agents; R32 - Unspecified urinary incontinence (5) Abnormal CXR: Status: Acute Category: Medical Code(s): R93.89 - Abnormal findings on diagnostic imaging of other specified body structures (6) Dementia: Status: Acute Category: Medical Code(s): F03.90 - Unspecified dementia, unspecified severity, without behavioral disturbance, psychotic disturbance, mood disturbance, and anxiety (7) Physical debility: Status: Acute Category: Medical Code(s): R53.81 - Other malaise Plan Blood cultures are negative. Urine culture is still pending. Can likely discharge home on oral antibiotics today. Dr. Nolasco entry - Saw patient, agree with above note.
[2025-02-04] MEDS: ASPIRIN 81MG CHEWABLE TABLET 81 MG PO (09:09)
[2025-02-04] MEDS: NYSTATIN CREAM 30GM/TUBE TP (09:10)
--- NOTE | 2025-02-05 08:29 | PC.NURSE ---
Urine culture results forwarded to hospitalist.
--- NOTE | 2025-02-05 10:17 | SW/DCPLANNER ---
Spoke with patient's sitter on the phone. Patient's sitter stated patient is doing good. Patient's sitter stated that they are aware of his upcoming appointments. Patient's sitter stated that she was able to get his new medicine picked up at [facility]. Patient's sitter stated that she has no concerns or questions at this time. Ria Leyva
--- NOTE | 2025-02-05 17:21 | EXP.DC.SUM ---
General Admission date:: 02/01/25 Discharge date: 02/04/25 HPI HPI HPI: Patient is an 80-year-old male with a history of urinary tract infections, past fracture left hip, BPH, urinary retention with long-term Stokes catheter. Back pain. Debility, atrial fibrillation, hypothyroidism and hypertension who was brought to the emergency room with his family after noted tremors. Also Stokes catheter had been draining dark urine and had been removed. Patient is a poor historian at present and does not remember much of yesterday but says he has not been eating or drinking well and just felt sick yesterday. He describes nausea and dry heaves. He denies any diarrhea. He denies any upper respiratory symptoms. Hospital Course Hospital Course Hospital Course: The patient was started on antibiotics and home medications were ordered. He did begin feeling better and was eating and sleeping well. His white blood cell count normalized and his blood cultures were negative. By 02/04/2025, he was anxious to go home. He was stable to be discharged on oral antibiotics. His urine culture did return positive for E. coli. Exam Data for Last 24 hours Vital signs and Labs for Last 24 Hours: Temp Pulse Resp BP Pulse Ox O2 Del Method 97.5 F L 77 16 148/83 H 92 L Room Air 02/04/25 08:00 02/04/25 08:00 02/04/25 08:00 02/04/25 08:00 02/04/25 08:00 02/04/25 09:00 I & O for Last 24 hours: Intake & Output 02/03/25 02/04/25 02/05/25 02/06/25 11:59 11:59 11:59 11:59 Intake Total 1110 / 1110 1140 / 1140 Output Total 650 / 650 1500 / 1500 Balance 460 / 460 -360 / -360 Weight 143 lb 14.4 oz 146 lb 8 oz Microbiology Reports for the Last 24 Hours: Microbiology 02/01/25 19:55 Urine,Clean Catch Urine Culture - Final Escherichia coli Escherichia coli#2 Narrative: Constitutional Constitutional: no acute distress *Routine HEENT Exam Head: Present normocephalic and atraumatic Eye: Present PERRL; Absent conjunctival icterus, scleral injection or conjunctivae pink ENT: Present mucous membranes moist and oropharynx clear *Routine Neck Exam Neck: Present supple and carotid bruit (Versus radiating murmur); Absent lymphadenopathy or thyromegaly *Routine Respiratory Exam Respiratory: Present CTA bilaterally (Anteriorly and posteriorly) *Routine Cardiovascular Exam Cardiovascular: Present RRR and murmur *Routine Abdominal Exam Abdominal: Present soft and normoactive bowel sounds; Absent tenderness or distended *Routine Rectal Exam Rectal:: deferred *Routine Genitalia Exam Genitalia:: normal male Comment:: Stokes cath in place to bedside drainage with clear yellow urine *Routine Extremities Exam Extremities: Absent edema or calf tenderness *Routine Skin Exam Skin: Present rash (Erythemic rash in bilateral groin regions extending up into inner buttocks.) *Routine Neurological Exam Neurological: Present alert, moving all extremities and normal speech; Absent tremors Comments: Poor memory Results Data Completed and Pending Labs on day of discharge: Preliminary micro results at discharge 02/01/25 20:43 Blood Culture - Preliminary Blood NO GROWTH AFTER 48 HOURS 02/01/25 19:49 Blood Culture - Preliminary Blood NO GROWTH AFTER 48 HOURS DS: Diagnosis Discharge Diagnosis (1) UTI (urinary tract infection): Status: Acute Code(s): N39.0 - Urinary tract infection, site not specified (2) Urinary retention: Status: Acute Code(s): R33.9 - Retention of urine, unspecified (3) Hypertension: Status: Chronic Code(s): I10 - Essential (primary) hypertension (4) Dermatitis associated with moisture from urinary incontinence: Status: Acute Code(s): L25.8 - Unspecified contact dermatitis due to other agents; R32 - Unspecified urinary incontinence (5) Abnormal CXR: Status: Acute Code(s): R93.89 - Abnormal findings on diagnostic imaging of other specified body structures (6) Dementia: Status: Acute Code(s): F03.90 - Unspecified dementia, unspecified severity, without behavioral disturbance, psychotic disturbance, mood disturbance, and anxiety (7) Physical debility: Status: Acute Code(s): R53.81 - Other malaise Meds Home Medications and Allergies Home Medications ?Medication ?Instructions ?Recorded ?Confirmed ?Type aspirin 81 mg chewable tablet 81 mg PO BID 06/26/18 02/02/25 History metoprolol tartrate 25 mg tablet 25 mg PO DAILY 06/26/18 02/02/25 History lansoprazole 30 mg capsule,delayed 30 mg PO DAILY 02/02/22 02/02/25 History release levothyroxine 25 mcg tablet 25 mcg PO DAILYDM 30 days #30 tabs 08/24/24 02/02/25 Rx (Synthroid) tamsulosin 0.4 mg capsule (Flomax) 0.4 mg PO DAILY 90 days #90 caps 01/11/25 02/02/25 Rx donepezil 5 mg tablet 5 mg PO HS 02/02/25 02/02/25 History hydrocodone 5 mg-acetaminophen 325 1 tab PO DAILY PRN Pain 02/02/25 02/02/25 History mg tablet cefdinir 300 mg capsule 300 mg PO Q12H #14 caps 02/04/25 Rx New Prescriptions to Start Prescriptions: Fernando Mendez Allergies Allergy/AdvReac Type Severity Reaction Status Date / Time No Known Allergies Allergy Verified 01/11/25 10:15 Discharge Plan Disposition Patient Disposition: Home, Self-Care Condition: Fair Discharge Order Discharge Orders: Discharge Order (Routine); Ordered 02/04/25 Ordered By: Fernando Nolasco Follow up Plan Follow up with: Kendall West MD [Primary Care Provider, Medical] - 02/11/25 10:45 am Juliocesar Cr MD [Staff Physician, Urology] - 02/15/25 10:00 am Prescriptions/Medication Reconciliation: New cefdinir 300 mg capsule 300 mg PO Q12H Qty: 14 0RF Continued aspirin 81 mg tablet,chewable 81 mg PO BID metoprolol tartrate 25 mg tablet 25 mg PO DAILY lansoprazole 30 mg capsule,delayed release(DR/EC) 30 mg PO DAILY Rx Instructions: take one capsule every AM 30-60 minutes before meals tamsulosin [Flomax] 0.4 mg capsule 0.4 mg PO DAILY 90 Days Qty: 90 1RF Rx Instructions: Take 1/2 hour after the same meal daily levothyroxine [Synthroid] 25 mcg Tablet 25 mcg PO DAILYDM 30 Days Qty: 30 0RF Rx Instructions: one tablet every AM on an empty stomache hydrocodone-acetaminophen 5-325 mg tablet 1 tab PO DAILY PRN (Reason: Pain) donepezil 5 mg tablet 5 mg PO HS Patient Comments: TAKE 1 TABLET BY MOUTH AT BEDTIME Rx Instructions: take one tablet at bedtime Problem Reconciliation Problems Reviewed?: Yes Patient Discharge Instructions ACTIVITY: Continue current activity DIET: continue same diet Patient Instructions: DI for Urinary Tract Infection (UTI), Stop Light Infection Print Language: [place] Providers Primary Care Provider: Kendall West Admit Provider: Aldo Garcia Attending Provider: Jose Elizalde
== END 2025-02-04 10:54 | disposition home or self-care (01) | DRG 699 ==
LOC: ER 19:13 → 2ND 23:22
PROVIDERS: Family Medicine; Admitting Provider Internal Medicine Adolescent Medicine; Emergency Provider Student in an Organized Health Care Education/Training Program; PCP Family Medicine; Visit Provider Family Medicine
DX: T83.511A Infection and inflammatory reaction due to indwelling urethral catheter, initial encounter (principal); Z16.11 Resistance to penicillins; Z16.23 Resistance to quinolones and fluoroquinolones; N39.0 Urinary tract infection, site not specified; I10 Essential (primary) hypertension; F03.90 Unspecified dementia, unspecified severity, without behavioral disturbance, psychotic disturbance, mood disturbance, and anxiety; E03.9 Hypothyroidism, unspecified; N40.1 Benign prostatic hyperplasia with lower urinary tract symptoms; R33.8 Other retention of urine; I48.91 Unspecified atrial fibrillation; N39.498 Other specified urinary incontinence; I25.10 Atherosclerotic heart disease of native coronary artery without angina pectoris; L24.A2 Irritant contact dermatitis due to fecal, urinary or dual incontinence; B37.2 Candidiasis of skin and nail; B96.20 Unspecified Escherichia coli [E. coli] as the cause of diseases classified elsewhere; Y84.6 Urinary catheterization as the cause of abnormal reaction of the patient, or of later complication, without mention of misadventure at the time of the procedure; Y73.1 Therapeutic (nonsurgical) and rehabilitative gastroenterology and urology devices associated with adverse incidents; Y92.009 Unspecified place in unspecified non-institutional (private) residence as the place of occurrence of the external cause; R53.81 Other malaise; R93.89 Abnormal findings on diagnostic imaging of other specified body structures; Z79.82 Long term (current) use of aspirin; Z79.890 Hormone replacement therapy; Z79.899 Other long term (current) drug therapy
CPT/HCPCS: 36415; 71045; 71046; 74177; 80048; 80053; 81001; 82803; 83605; 83690; 85025; 85610; 85730; 87040; 87086; 87088; 87186; 93005; 97162; 97166; 99285; J0456; J0696; J1650; J7050; J7120; Q9967

== ENCOUNTER 2025-03-19 16:58 | Emergency (ER) | payer MEDICARE, BC, SELFPAY ==
[2025-03-19] VITALS (11 sets, daily range): BP systolic 86–162; BP diastolic 51–92; PULSE 54–80; RESP 16–24; TEMP 36.6–36.8; O2SAT 95–100; BMI 21.6
--- OUTSIDE RECORDS SUMMARY | 2025-03-19 17:13 | XMS_ITS | Encounter Summary ---
Author Organization Healthcare Address [address] [place] [address] Care Team Providers Care Lime Hide Inspector Name Role Phone Kendall West MD Primary Care Provider +1- [phone] Encounter Details Date Type Department Care Team (Late st Contact Info) Description 08/25/2024 Orders Only External Location [address] [place] [address] Provider, External Social History Tobacco Use Types Packs/Day Years Used Date Smoking Tobacco: Never Assessed Sex and Gender Information Value Date Recorded Sex Assigned at Not on file Legal Sex Male 12:42 PM EDT Gender Identity Not on file Sexual Orientation Not on file documented as of this encounter Plan of Treatment Upcoming Encounters Date Type Department Care Team (Late st Contact Info) Description 04/12/2025 11:10 AM EST Consult [place] [facility] [address], [address] [place] [address] Donna Erickson PA [address] [place] [address] documented as of this encounter Procedures Procedure Name Priority Date/Time Associated Diagnosis Comments CT NEURO OUTSIDE IMAGES 08/25/2024 2:24 AM EDT documented in this encounter Results * CT NEURO OUTSIDE IMAGES (08/25/2024 2:24 AM EDT) Anatomical Region Laterality Modality Computed Tomogra phy 08/25/2024 2:24 AM EDT us External Provider IMG CT PROCEDURES Edited Resul t - Final documented in this encounter Visit Diagnoses Not on filedocumented in this encounter Care Teams Lime Hide Inspector Relationship Specialty Start Date End Date Kendall West MD [address] [place] [id number] PCP - General 03/10/25 documented as of this encounter
--- OUTSIDE RECORDS SUMMARY | 2025-03-19 17:13 | XMS_ITS | Encounter Summary ---
Author Organization Healthcare Address [address] [place] [address] Care Team Providers Care Commercial Electrician Name Role Phone Kendall West MD Primary Care Provider +1- [phone] Encounter Details Date Type Department Care Team (Late st Contact Info) Description 08/25/2024 Orders Only External Location [address] [place] [address] Provider, External Social History Tobacco Use Types [...] Info) Description 04/12/2025 11:10 AM EST Consult [place] [facility] [address], [address] [place] [address] Donna Erickson PA [address] [place] [address] documented as of this encounter Procedures Procedure Name Priority Date/Time Associated Diagnosis Comments CT NEURO OUTSIDE IMAGES 08/25/2024 2:27 AM EDT documented in this encounter Results * CT NEURO OUTSIDE IMAGES (08/25/2024 2:27 AM EDT) Anatomical Region Laterality Modality Computed Tomogra phy 08/25/2024 2:27 AM EDT us External Provider IMG CT PROCEDURES Edited Resul t - Final documented in this encounter Visit Diagnoses Not on filedocumented in this encounter Care Teams Commercial Electrician Relationship Specialty Start Date End Date Kendall West MD [address] [place] [id number] PCP - General 03/10/25 documented as of this encounter
--- OUTSIDE RECORDS SUMMARY | 2025-03-19 17:13 | XMS_ITS | Encounter Summary ---
Author Organization Healthcare Address [address] [place] [address] Care Team Providers Care Pulp Machine Operator Name Role Phone Kendall West MD Primary Care Provider +1- [phone] Encounter Details Date Type Department Care Team (Late st Contact Info) Description 08/25/2024 Orders Only External Location [address] [place] [address] Provider, External Social History Tobacco Use Types [...] Info) Description 04/12/2025 11:10 AM EST Consult [place] [facility] [address], [address] [place] [address] Donna Erickson PA [address] [place] [address] documented as of this encounter Procedures Procedure Name Priority Date/Time Associated Diagnosis Comments CT THORACIC OUTSIDE IMAGES 08/25/2024 2:38 AM EDT documented in this encounter Results * CT THORACIC OUTSIDE IMAGES (08/25/2024 2:38 AM EDT) Anatomical Region Laterality Modality Computed Tomogra phy 08/25/2024 2:38 AM EDT us External Provider IMG CT PROCEDURES Edited Resul t - Final documented in this encounter Visit Diagnoses Not on filedocumented in this encounter Care Teams Pulp Machine Operator Relationship Specialty Start Date End Date Kendall West MD [address] [place] [id number] PCP - General 03/10/25 documented as of this encounter
--- OUTSIDE RECORDS SUMMARY | 2025-03-19 17:14 | XMS_ITS | Encounter Summary ---
Author Organization Healthcare Address [address] [place] [address] Care Team Providers Care Full Stack Web Developer Name Role Phone Kendall West MD Primary Care Provider +1- [phone] Encounter Details Date Type Department Care Team (Late Contact Info) Description 10/06/2024 Orders Only External Location [address] [place] [address] Provider, External Social History Tobacco Use Types [...] Info) Description 04/12/2025 11:10 AM EST Consult [place] [facility] [address], [address] [place] [address] Donna Erickson PA [address] [place] [address] documented as of this encounter Procedures Procedure Name Priority Date/Time Associated Diagnosis Comments XR MSK OUTSIDE IMAGES 10/06/2024 2:08 PM EDT documented in this encounter Results * XR MSK OUTSIDE IMAGES (10/06/2024 2:08 PM EDT) Anatomical Region Laterality Modality Radiographic [place] 10/06/2024 2:08 PM EDT us External Provider IMG XR PROCEDURES Edited Resul t - Final documented in this encounter Visit Diagnoses Not on filedocumented in this encounter Care Teams Full Stack Web Developer Relationship Specialty Start Date End Date Kendall West MD [address] [place] [id number] PCP - General 03/10/25 documented as of this encounter
--- OUTSIDE RECORDS SUMMARY | 2025-03-19 17:14 | XMS_ITS | Encounter Summary ---
Author Organization Healthcare Address [address] [place] [address] Care Team Providers Care Geothermal Production Manager Name Role Phone Kendall West MD Primary Care Provider +1- [phone] Encounter Details Date Type Department Care Team (Late Contact Info) Description 09/08/2024 Orders Only External Location [address] [place] [address] Provider, External Social History Tobacco Use Types [...] Info) Description 04/12/2025 11:10 AM EST Consult [place] [facility] [address], [address] [place] [address] Donna Erickson PA [address] [place] [address] documented as of this encounter Procedures Procedure Name Priority Date/Time Associated Diagnosis Comments XR MSK OUTSIDE IMAGES 09/08/2024 3:18 PM EDT documented in this encounter Results * XR MSK OUTSIDE IMAGES (09/08/2024 3:18 PM EDT) Anatomical Region Laterality Modality Radiographic Vy ging 09/08/2024 3:18 PM EDT us External Provider IMG XR PROCEDURES Edited Resul t - Final documented in this encounter Visit Diagnoses Not on filedocumented in this encounter Care Teams Geothermal Production Manager Relationship Specialty Start Date End Date Kendall West MD [address] [place] [id number] PCP - General 03/10/25 documented as of this encounter
--- OUTSIDE RECORDS SUMMARY | 2025-03-19 17:14 | XMS_ITS | Encounter Summary ---
Author Organization Healthcare Address [address] [place] [address] Care Team Providers Care In Tube Conversion Technician Name Role Phone Kendall West MD Primary Care Provider +1- [phone] Encounter Details Date Type Department Care Team (Late Contact Info) Description 09/08/2024 Orders Only External Location [address] [place] [address] Provider, External Social History Tobacco Use Types [...] Info) Description 04/12/2025 11:10 AM EST Consult [place] [facility] [address], [address] [place] [address] Donna Erickson PA [address] [place] [address] documented as of this encounter Procedures Procedure Name Priority Date/Time Associated Diagnosis Comments XR MSK OUTSIDE IMAGES 09/08/2024 3:06 PM EDT documented in this encounter Results * XR MSK OUTSIDE IMAGES (09/08/2024 3:06 PM EDT) Anatomical Region Laterality Modality Radiographic Vy ging 09/08/2024 3:06 PM EDT us External Provider IMG XR PROCEDURES Edited Resul t - Final documented in this encounter Visit Diagnoses Not on filedocumented in this encounter Care Teams In Tube Conversion Technician Relationship Specialty Start Date End Date Kendall West MD [address] [place] [id number] PCP - General 03/10/25 documented as of this encounter
--- OUTSIDE RECORDS SUMMARY | 2025-03-19 17:15 | XMS_ITS | Encounter Summary ---
Author Organization Healthcare Address [address] [place] [address] Care Team Providers Care Senior Advisory Name Role Phone Kendall West MD Primary Care Provider +1- [phone] Encounter Details Date Type Department Care Team (Late Contact Info) Description 10/06/2024 Orders Only External Location [address] [place] [address] Provider, External Social History Tobacco Use Types [...] Info) Description 04/12/2025 11:10 AM EST Consult [place] [facility] [address], [address] [place] [address] Donna Erickson PA [address] [place] [address] documented as of this encounter Procedures Procedure [...] on filedocumented in this encounter Care Teams Senior Advisory Relationship Specialty Start Date End Date Kendall West MD [address] [place] [id number] PCP - General 03/10/25 documented as of this encounter
--- OUTSIDE RECORDS SUMMARY | 2025-03-19 17:15 | XMS_ITS | Encounter Summary ---
Author Organization Healthcare Address [address] [place] [address] Care Team Providers Care Scoop Operator Name Role Phone Kendall West MD Primary Care Provider +1- [phone] Encounter Details Date Type Department Care Team (Late Contact Info) Description 11/16/2024 Orders Only External Location [address] [place] [address] Provider, External Social History Tobacco Use Types [...] Info) Description 04/12/2025 11:10 AM EST Consult [place] [facility] [address], [address] [place] [address] Donna Erickson PA [address] [place] [address] documented as of this encounter Procedures Procedure Name Priority Date/Time Associated Diagnosis Comments XR MSK OUTSIDE IMAGES 11/16/2024 1:29 PM EDT documented in this encounter Results * XR MSK OUTSIDE IMAGES (11/16/2024 1:29 PM EDT) Anatomical Region Laterality Modality Radiographic Vy ging 11/16/2024 1:29 PM EDT us External Provider IMG XR PROCEDURES Edited Resul t - Final documented in this encounter Visit Diagnoses Not on filedocumented in this encounter Care Teams Scoop Operator Relationship Specialty Start Date End Date Kendall West MD [address] [place] [id number] PCP - General 03/10/25 documented as of this encounter
--- OUTSIDE RECORDS SUMMARY | 2025-03-19 17:15 | XMS_ITS | Encounter Summary ---
Author Organization Healthcare Address [address] [place] [address] Care Team Providers Care Chilling Hood Operator Name Role Phone Kendall West MD Primary Care Provider +1- [phone] Encounter Details Date Type Department Care Team (Late st Contact Info) Description 08/25/2024 Orders Only External Location [address] [place] [address] Provider, External Social History Tobacco Use Types [...] Info) Description 04/12/2025 11:10 AM EST Consult [place] [facility] [address], [address] [place] [address] Donna Erickson PA [address] [place] [address] documented as of this encounter Procedures Procedure Name Priority Date/Time Associated Diagnosis Comments CT NEURO OUTSIDE IMAGES 08/25/2024 2:30 AM EDT documented in this encounter Results * CT NEURO OUTSIDE IMAGES (08/25/2024 2:30 AM EDT) Anatomical Region Laterality Modality Computed Tomogra phy 08/25/2024 2:30 AM EDT us External Provider IMG CT PROCEDURES Edited Resul t - Final documented in this encounter Visit Diagnoses Not on filedocumented in this encounter Care Teams Chilling Hood Operator Relationship Specialty Start Date End Date Kendall West MD [address] [place] [id number] PCP - General 03/10/25 documented as of this encounter
--- OUTSIDE RECORDS SUMMARY | 2025-03-19 17:16 | XMS_ITS | Encounter Summary ---
Author Organization Healthcare Address [address] [place] [address] Care Team Providers Care Chair Car Driver Name Role Phone Kendall West MD Primary Care Provider +1- [phone] Encounter Details Date Type Department Care Team (Late st Contact Info) Description 08/25/2024 Orders Only External Location [address] [place] [address] Provider, External Social History Tobacco Use Types [...] EST Consult [place] [facility] [address], [address] [place] [address] Donna Erickson PA [address] [place] [address] documented as of this encounter Procedures Procedure Name Priority Date/Time Associated Diagnosis Comments CT MSK OUTSIDE IMAGES 08/25/2024 2:41 AM EDT documented in this encounter Results * CT MSK OUTSIDE IMAGES (08/25/2024 2:41 AM EDT) Anatomical Region Laterality Modality Computed Tomogra phy 08/25/2024 2:41 AM EDT us External Provider IMG CT PROCEDURES Edited Resul t - Final documented in this encounter Visit Diagnoses Not on filedocumented in this encounter Care Teams Chair Car Driver Relationship Specialty Start Date End Date Kendall West MD [address] [place] [id number] PCP - General 03/10/25 documented as of this encounter
--- OUTSIDE RECORDS SUMMARY | 2025-03-19 17:16 | XMS_ITS | Encounter Summary ---
Author Organization Healthcare Address [address] [place] [address] Care Team Providers Care Mental Health Aide Name Role Phone Kendall West MD Primary Care Provider +1- [phone] Encounter Details Date Type Department Care Team (Late st Contact Info) Description 08/25/2024 Orders Only External Location [address] [place] [address] Provider, External Social History Tobacco Use Types [...] Info) Description 04/12/2025 11:10 AM EST Consult [place] [facility] [address], [address] [place] [address] Donna Erickson PA [address] [place] [address] documented as of this encounter Procedures Procedure Name Priority Date/Time Associated Diagnosis Comments CT NEURO OUTSIDE IMAGES 08/25/2024 2:22 AM EDT documented in this encounter Results * CT NEURO OUTSIDE IMAGES (08/25/2024 2:22 AM EDT) Anatomical Region Laterality Modality Computed Tomogra phy 08/25/2024 2:22 AM EDT us External Provider IMG CT PROCEDURES Edited Resul t - Final documented in this encounter Visit Diagnoses Not on filedocumented in this encounter Care Teams Mental Health Aide Relationship Specialty Start Date End Date Kendall West MD [address] [place] [id number] PCP - General 03/10/25 documented as of this encounter
--- OUTSIDE RECORDS SUMMARY | 2025-03-19 17:17 | XMS_ITS | Encounter Summary ---
Author Organization Healthcare Address [address] [place] [id number] Care Team Providers Care Leadership Program Associate Name Role Phone Kendall West MD Primary Care Provider +1- [phone] Encounter Details Date Type Department Care Team (Late Contact Info) Description 08/19/2024 Orders Only External Location [address] [place] [address] Provider, External Social History Tobacco Use Types [...] Info) Description 04/12/2025 11:10 AM EST Consult [place] [facility] [address], [address] [place] [address] Donna Erickson PA [address] [place] [address] documented as of this encounter Procedures Procedure Name Priority Date/Time Associated Diagnosis Comments XR OUTSIDE IMAGES 08/19/2024 8:35 PM EDT documented in this encounter Results * XR OUTSIDE IMAGES (08/19/2024 8:35 PM EDT) Anatomical Region Laterality Modality Radiographic Vy ging 08/19/2024 8:35 PM EDT us External Provider IMG XR PROCEDURES Edited Resul t - Final documented in this encounter Visit Diagnoses Not on filedocumented in this encounter Care Teams Leadership Program Associate Relationship Specialty Start Date End Date Kendall West MD [address] [place] [address] PCP - General 03/10/25 documented as of this encounter
--- OUTSIDE RECORDS SUMMARY | 2025-03-19 17:17 | XMS_ITS | Encounter Summary ---
Author Organization Healthcare Address [address] [place] [address] Care Team Providers Care Mat Worker Name Role Phone Unavailable Primary Care Provider Unavailabl e Reason for Visit * Reason Onset Date Comments Records/Image Request 02/24/2025 Confirmed Appt 02/24/2025 Rcvd Images 02/24/2025 Records Request 02/24/2025 Encounter Details Date Type Department Care Team (Late st Contact Info) Description 02/24/2025 Telephone [facility] [address], [address] [place] [address] Pcp, No [address] [place] [address] Records/Image Request; Confirmed Appt; Rcvd Images; Records Request Social History Tobacco Use Types Packs/Day Years Used Date Smoking Tobacco: Never Assessed Sex and Gender Information Value Date Recorded Sex Assigned at Not on file Legal Sex Male 12:42 PM EDT Gender Identity Not on file Sexual Orientation Not on file documented as of this encounter Miscellaneous Notes * Telephone Encounter - Joan Ivey - 02/25/2025 11:44 AM EDT Uploaded Image Reports from [facility] * Telephone Encounter - Joan Ivey - 02/25/2025 8:16 AM EDT Requested XR and CT report from 08/19/24 to 02/01/25 * Telephone Encounter - Joan Ivey - 02/25/2025 8:09 AM EDT Images available to view in patients chart. * Telephone Encounter - Joan Ivey - 02/24/2025 3:34 PM EDT Uploaded more records from [facility] * Telephone Encounter - Joan Ivey - 02/24/2025 3:04 PM EDT Requested more records form Dr. Cr * Telephone Encounter - Joan Ivey - 02/24/2025 2:57 PM EDT Uploaded Referral Records from [facility] * Telephone Encounter - Joan Ivey - 02/24/2025 1:52 PM EDT Spoke with Alysia Carr with verbal consent from patient to schedule his appt, for 04/12 with Donna Erickson, added patient to the wait list but will be unable to come before 03/08 and mailed reminder. * Telephone Encounter - Joan Ivey - 02/24/2025 1:44 PM EDT Faxed records/image request from recent hospital discharge and for any labs, scan reports on the patient. 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 documented in this encounter Plan of Treatment Upcoming Encounters Date Type Department Care Team (Late st Contact Info) Description 04/12/2025 11:[address] [facility] Urology [address] [place] [address] Donna Erickson PA [address] [place] [address] documented as of this encounter Visit Diagnoses Not on filedocumented in this encounter
--- OUTSIDE RECORDS SUMMARY | 2025-03-19 17:17 | XMS_ITS | Encounter Summary ---
Author Organization Healthcare Address [address] [id number] Care Team Providers Care Hat Finisher Name Role Phone Kendall West MD Primary Care Provider +1- [phone] Encounter Details Date Type Department Care Team (Late Contact Info) Description 02/03/2025 Orders Only External Location [address] [place] [address] Provider, External Social History Tobacco Use Types [...] Info) Description 04/12/2025 11:10 AM EST Consult [facility] [address] [place] [address] Donna Erickson PA [address] [place] [address] documented as of this encounter Procedures Procedure Name Priority Date/Time Associated Diagnosis Comments XR OUTSIDE IMAGES 02/03/2025 9:39 AM EDT documented in this encounter Results * XR OUTSIDE IMAGES (02/03/2025 9:39 AM EDT) Anatomical Region Laterality Modality Radiographic Vy ging 02/03/2025 9:39 AM EDT us External Provider IMG XR PROCEDURES Edited Resul t - Final documented in this encounter Visit Diagnoses Not on filedocumented in this encounter Care Teams Hat Finisher Relationship Specialty Start Date End Date Kendall West MD [address] [place] [address] PCP - General 03/10/25 documented as of this encounter
--- OUTSIDE RECORDS SUMMARY | 2025-03-19 17:17 | XMS_ITS | Clinical Summary ---
Author Organization [facility] Address [address] [place] [address] Care Team Providers Care Loading Checker Name Role Phone Kendall West MD Primary Care Provider +1- [phone] Encounters Date Type Department Care Team Description 02/24/2025 Telephone [facility] Urology [address] [place] [address] Pcp, No Records/Image Request; Confirmed Appt; Rcvd Images; Records Request 02/03/2025 Orders Only External Location [address] [place] [address] Provider, External 02/01/2025 Orders Only External Location [address] [place] [address] Provider, External 02/01/2025 Orders Only External Location [address] [place] [address] Provider, External from Last 3 Months Social History Tobacco Use Types Packs/Day Years Used Date Smoking Tobacco: Never Assessed Sex and Gender Information Value Date Recorded Sex Assigned at Not on file Legal Sex Male 12:42 PM EDT Gender Identity Not on file Sexual Orientation Not on file Plan of Treatment Upcoming Encounters Date Type Department Care Team (Late st Contact Info) Description 04/12/2025 11:10 AM EST Consult [facility] Urology [address] [place] [address] Donna Erickson PA [address] [place] [address] Health Maintenance Due Date Last Done Comments [facility]-Depression Screening 1940 [facility]-Medicare Annual Wellness (AWV) 1940 [facility]-/Child/Adol SDOH Screenings 1940 [facility]- SDOH Screenings 1958 [facility]-Adult SDOH Screenings 1958 [facility]-DTaP,Tdap,and Td Vaccines (1 - Tdap) 11/14/1959 [facility]-Pneumococcal Vaccine: 50+ Years (1 of 1 - PCV) 1990 [facility]-Zoster Vaccines (1 of 2) 1990 [facility]-RSV Vaccine: 60+ Years or (1 - 1-dose 75+ series) 11/14/2015 [id number] Vaccine (7 - 2024- season) 2025 09/18/2024, 04/23/2023, 04/16/2022, Additional history exists [facility]-Influenza Vaccine (#1) 01/04/202504/23, 03/15/2021, 03/01/2020, Additional history exists HPV Vaccines Aged Out No longer eligi ble based on patient's age to complete this topic [facility]-HIB Vaccines Aged Out No longer e ligible based on patient's age to complete this topic [facility]-Hepatitis A Vaccines Aged Out No longer eligible based on patient's age to complete this topic [facility]-IPV Vaccines Aged Out No longer e ligible based on patient's age to complete this topic [facility]-Rotavirus Vaccines Aged Out No lo nger eligible based on patient's age to complete this topic Procedures Procedure Name Priority Date/Time Associated Diagnosis Comments XR OUTSIDE IMAGES 02/03/2025 9:[address] MSK OUTSIDE IMAGES 02/01/2025 8:22 PM EDT XR OUTSIDE IMAGES 02/01/2025 7:39 PM EDT from Last 3 Months Results * XR OUTSIDE IMAGES (02/03/2025 9:39 AM EDT) Only the most recent of2 resultswithin the time period is included. Anatomical Region Laterality Modality Radiographic Vy ging 02/03/2025 9:39 AM EDT us External Provider IMG XR PROCEDURES Edited Resul t - Final * CT MSK OUTSIDE IMAGES (02/01/2025 8:22 PM EDT) Anatomical Region Laterality Modality Computed Tomogra phy 02/01/2025 8:22 PM EDT us External Provider IMG CT PROCEDURES Edited Resul t - Final from Last 3 Months Insurance MEDICARE Member Subscriber Plan / Payer (Ef fective 2005-Present) Name:[place] Ar[place] Member ID:[id number] Relation to Subscriber:Self Name:ArceoSalinas cyr Jean-Paul Subscriber ID:[id number] Payer ID:MEDICARE Group ID:Not on file Type:Medicare Address: [place] [phone] Care Teams Loading Checker Relationship Specialty Start Date End Date Kendall West MD [address] [place] [id number] PCP - General 03/10/25
--- OUTSIDE RECORDS SUMMARY | 2025-03-19 17:17 | XMS_ITS | Encounter Summary ---
Author Organization Healthcare Address [address] [place] [address] Care Team Providers Care Grooming Salon Manager Name Role Phone Kendall West MD Primary Care Provider +1- [phone] Encounter Details Date Type Department Care Team (Late st Contact Info) Description 08/19/2024 Orders Only External Location [address] [place] [address] Provider, External Social History Tobacco Use Types [...] Info) Description 04/12/2025 11:10 AM EST Consult [facility] [address] [place] [address] Donna Erickson PA [address] [place] [address] documented as of this encounter Procedures Procedure Name Priority Date/Time Associated Diagnosis Comments CT MSK OUTSIDE IMAGES 08/19/2024 8:48 PM EDT documented in this encounter Results * CT MSK OUTSIDE IMAGES (08/19/2024 8:48 PM EDT) Anatomical Region Laterality Modality Computed Tomogra phy 08/19/2024 8:48 PM EDT us External Provider IMG CT PROCEDURES Edited Resul t - Final documented in this encounter Visit Diagnoses Not on filedocumented in this encounter Care Teams Grooming Salon Manager Relationship Specialty Start Date End Date Kendall West MD [address] [place] [id number] PCP - General 03/10/25 documented as of this encounter
--- OUTSIDE RECORDS SUMMARY | 2025-03-19 17:18 | XMS_ITS | Encounter Summary ---
Author Organization Healthcare Address [address] [id number] Care Team Providers Care Student Worker Name Role Phone Kendall West MD Primary Care Provider +1- [phone] Encounter Details Date Type Department Care Team (Late Contact Info) Description 08/21/2024 Orders Only External Location [address] [place] [address] Provider, External Social History Tobacco Use Types [...] Info) Description 04/12/2025 11:10 AM EST Consult [facility] [address], [address] [place] [address] Donna Erickson PA [address] [place] [address] documented as of this encounter Procedures Procedure Name Priority Date/Time Associated Diagnosis Comments XR OUTSIDE IMAGES 08/21/2024 5:30 PM EDT documented in this encounter Results * XR OUTSIDE IMAGES (08/21/2024 5:30 PM EDT) Anatomical Region Laterality Modality Radiographic Vy ging 08/21/2024 5:30 PM EDT us External Provider IMG XR PROCEDURES Edited Resul t - Final documented in this encounter Visit Diagnoses Not on filedocumented in this encounter Care Teams Student Worker Relationship Specialty Start Date End Date Kendall West MD [address] [place] [address] PCP - General 03/10/25 documented as of this encounter
--- OUTSIDE RECORDS SUMMARY | 2025-03-19 17:18 | XMS_ITS | Encounter Summary ---
Author Organization Healthcare Address [address] [place] [address] Care Team Providers Care Music Library Assistant Name Role Phone Kendall West MD Primary Care Provider +1- [phone] Encounter Details Date Type Department Care Team (Late st Contact Info) Description 08/19/2024 Orders Only External Location [address] [place] [address] Provider, External Social History Tobacco Use Types [...] Info) Description 04/12/2025 11:10 AM EST Consult [facility] [address], [address] [place] [address] Donna Erickson PA [address] [place] [address] documented as of this encounter Procedures Procedure Name Priority Date/Time Associated Diagnosis Comments CT NEURO OUTSIDE IMAGES 08/19/2024 8:45 PM EDT documented in this encounter Results * CT NEURO OUTSIDE IMAGES (08/19/2024 8:45 PM EDT) Anatomical Region Laterality Modality Computed Tomogra phy 08/19/2024 8:45 PM EDT us External Provider IMG CT PROCEDURES Edited Resul t - Final documented in this encounter Visit Diagnoses Not on filedocumented in this encounter Care Teams Music Library Assistant Relationship Specialty Start Date End Date Kendall West MD [address] [place] [id number] PCP - General 03/10/25 documented as of this encounter
--- OUTSIDE RECORDS SUMMARY | 2025-03-19 17:18 | XMS_ITS | Encounter Summary ---
Author Organization Healthcare Address [address] [place] [address] Care Team Providers Care Driver'S Education Instructor Name Role Phone Kendall West MD Primary Care Provider +1- [phone] Encounter Details Date Type Department Care Team (Late st Contact Info) Description 08/19/2024 Orders Only External Location [address] [place] [address] Provider, External Social History Tobacco Use Types [...] EST Consult [facility] [address], [address] [place] [address] Donna Erickson PA [address] [place] [address] documented as of this encounter Procedures Procedure Name Priority Date/Time Associated Diagnosis Comments XR MSK OUTSIDE IMAGES 08/19/2024 8:35 PM EDT documented in this encounter Results * XR MSK OUTSIDE IMAGES (08/19/2024 8:35 PM EDT) Anatomical Region Laterality Modality Radiographic Vy ging 08/19/2024 8:35 PM EDT us External Provider IMG XR PROCEDURES Edited Resul t - Final documented in this encounter Visit Diagnoses Not on filedocumented in this encounter Care Teams Driver'S Education Instructor Relationship Specialty Start Date End Date Knedall West MD [address] [place] [id number] PCP - General 03/10/25 documented as of this encounter
--- OUTSIDE RECORDS SUMMARY | 2025-03-19 17:19 | XMS_ITS | Encounter Summary ---
Author Organization Healthcare Address [address] [place] [address] Care Team Providers Care Potter Or Ceramic Artist Name Role Phone Kendall West MD Primary Care Provider +1- [phone] Encounter Details Date Type Department Care Team (Late st Contact Info) Description 02/01/2025 Orders Only External Location [address] [place] [address] Provider, External Social History Tobacco Use Types [...] EST Consult [place] [facility] [address], [address] [place] [address] Donna Erickson PA [address] [place] [address] documented as of this encounter Procedures Procedure Name Priority Date/Time Associated Diagnosis Comments CT MSK OUTSIDE IMAGES 02/01/2025 8:22 PM EDT documented in this encounter Results * CT MSK OUTSIDE IMAGES (02/01/2025 8:22 PM EDT) Anatomical Region Laterality Modality Computed Tomogra phy 02/01/2025 8:22 PM EDT us External Provider IMG CT PROCEDURES Edited Resul t - Final documented in this encounter Visit Diagnoses Not on filedocumented in this encounter Care Teams Potter Or Ceramic Artist Relationship Specialty Start Date End Date Kendall West MD [address] [place] [id number] PCP - General 03/10/25 documented as of this encounter
--- OUTSIDE RECORDS SUMMARY | 2025-03-19 17:19 | XMS_ITS | Encounter Summary ---
Author Organization Healthcare Address [address] [place] [address] Care Team Providers Care Ton Container Filler Name Role Phone Kendall West MD Primary Care Provider +1- [phone] Encounter Details Date Type Department Care Team (Late st Contact Info) Description 08/25/2024 Orders Only External Location [address] [place] [address] Provider, External Social History Tobacco Use Types [...] EST Consult [place] [facility] [address], [address] [place] [address] Donna Erickson PA [address] [place] [address] documented as of this encounter Procedures Procedure Name Priority Date/Time Associated Diagnosis Comments CT MSK OUTSIDE IMAGES 08/25/2024 2:34 AM EDT documented in this encounter Results * CT MSK OUTSIDE IMAGES (08/25/2024 2:34 AM EDT) Anatomical Region Laterality Modality Computed Tomogra phy 08/25/2024 2:34 AM EDT us External Provider IMG CT PROCEDURES Edited Resul t - Final documented in this encounter Visit Diagnoses Not on filedocumented in this encounter Care Teams Ton Container Filler Relationship Specialty Start Date End Date Kendall West MD [address] [place] [id number] PCP - General 03/10/25 documented as of this encounter
--- OUTSIDE RECORDS SUMMARY | 2025-03-19 17:19 | XMS_ITS | Encounter Summary ---
Author Organization Healthcare Address [address] [place] [address] Care Team Providers Care Conservation Scientist Name Role Phone Kendall West MD Primary Care Provider +1- [phone] Encounter Details Date Type Department Care Team (Late st Contact Info) Description 08/25/2024 Orders Only External Location [address] [place] [address] Provider, External Social History Tobacco Use Types [...] Info) Description 04/12/2025 11:10 AM EST Consult [place] [facility] [address] [place] [address] Donna Erickson PA [address] [place] [address] documented as of this encounter Procedures Procedure Name Priority Date/Time Associated Diagnosis Comments XR MSK OUTSIDE IMAGES 08/25/2024 2:46 AM EDT documented in this encounter Results * XR MSK OUTSIDE IMAGES (08/25/2024 2:46 AM EDT) Anatomical Region Laterality Modality Radiographic Vy ging 08/25/2024 2:46 AM EDT us External Provider IMG XR PROCEDURES Edited Resul t - Final documented in this encounter Visit Diagnoses Not on filedocumented in this encounter Care Teams Conservation Scientist Relationship Specialty Start Date End Date Kendall West MD [address] [place] [id number] PCP - General 03/10/25 documented as of this encounter
--- OUTSIDE RECORDS SUMMARY | 2025-03-19 17:20 | XMS_ITS | Encounter Summary ---
Author Organization Healthcare Address [address] [id number] Care Team Providers Care Gum Cook Name Role Phone Kendall West MD Primary Care Provider +1- [phone] Encounter Details Date Type Department Care Team (Late Contact Info) Description 02/01/2025 Orders Only External Location [address] [place] [address] Provider, External Social History Tobacco Use Types [...] Info) Description 04/12/2025 11:10 AM EST Consult [facility] [address] [place] [address] Donna Erickson PA [address] [place] [address] documented as of this encounter Procedures Procedure Name Priority Date/Time Associated Diagnosis Comments XR OUTSIDE IMAGES 02/01/2025 7:39 PM EDT documented in this encounter Results * XR OUTSIDE IMAGES (02/01/2025 7:39 PM EDT) Anatomical Region Laterality Modality Radiographic Vy ging 02/01/2025 7:39 PM EDT us External Provider IMG XR PROCEDURES Edited Resul t - Final documented in this encounter Visit Diagnoses Not on filedocumented in this encounter Care Teams Gum Cook Relationship Specialty Start Date End Date Kendall West MD [address] [place] [address] PCP - General 03/10/25 documented as of this encounter
--- OUTSIDE RECORDS SUMMARY | 2025-03-19 17:20 | XMS_ITS | Encounter Summary ---
Author Organization Healthcare Address [address] [place] [address] Care Team Providers Care Shaker Flatwork Name Role Phone Kendall West MD Primary Care Provider +1- [phone] Encounter Details Date Type Department Care Team (Late st Contact Info) Description 08/19/2024 Orders Only External Location [address] [place] [address] Provider, External Social History Tobacco Use Types [...] Info) Description 04/12/2025 11:10 AM EST Consult [place] [facility] [address] [place] [address] Donna Erickson PA [address] [place] [address] documented as of this encounter Procedures Procedure Name Priority Date/Time Associated Diagnosis Comments CT NEURO OUTSIDE IMAGES 08/19/2024 8:43 PM EDT documented in this encounter Results * CT NEURO OUTSIDE IMAGES (08/19/2024 8:43 PM EDT) Anatomical Region Laterality Modality Computed Tomogra phy 08/19/2024 8:43 PM EDT us External Provider IMG CT PROCEDURES Edited Resul t - Final documented in this encounter Visit Diagnoses Not on filedocumented in this encounter Care Teams Shaker Flatwork Relationship Specialty Start Date End Date Kendall West MD [address] [place] [id number] PCP - General 03/10/25 documented as of this encounter
--- OUTSIDE RECORDS SUMMARY | 2025-03-19 17:20 | XMS_ITS | Data Portability ---
Author Organization [facility] Address [address] [facility] [address] [place] [address] Assessment Encounter Date Assessment Date Assessment LastModified [...] 0.6 cm (2 cores ) C) Left [place] 0.9 cm (1 cores ) D) Right Base 1.4 cm (1 cores ) E) Right Mid 1.2 cm (1 cores ) F) Right [place] 1.3 cm (1 cores ) G) Left Lat Base 0.9 cm (1 cores ) H) Left Lat Mid 1.2 cm (1 cores ) I) Left Lat [place] 1.0, 1.6 cm (2 cores ) J) Right Lat Base 1.5 cm (1 cores ) K) Right Lat Mid 1.2 cm (1 cores ) L) Right Lat [place] 1.6 cm (1 cores ) JAB 07/22 10:43 AM Micro scopi c Descr iptio n: There is no evide nce of carci noma or high- grade PIN. VISHAL Abbasi M.D. Jeane d Out Date: 07/23 09:49 Page 1 of 1 Not Available [facility] [address] [place] [address], [place], [address], 07/23/2018 09:50:18 Result Notes None recorded. Medical [...] ICD10 Code Diagnosis IMO Codes Diagnosis Note [id number] JOSE MARIA BLANK MD SURGERY SCHEDULE [address] [place] [address] 07/21/2018 13:18:22 07/21/2018 13:28:10 Health Concerns Section Related Observation LastModified by Organization Detai ls LastModified Time None Recorded Concern Status LastModified by Organization Details LastModified Time None Recorded Advance Directives Directive None Recorded Payers Insurance Date Sequence Insurance Name Policy Number Policy Smith Covered Member ID Smith Member ID Guarantor Name 07/22/2018 1 [place] [id number] [place] Ar[place] 07/21/2018 2 BENEFIT PROGRAMS ADMINISTRATION - [facility] STARFACE - [employer] [facility] (PPO) [place] Jeong Hugo [id number] [place] 07/21/2018 2 [place] [id number] [place] Hugo [id number] [facility]
[2025-03-19 17:47] LABS: Hematocrit 39.3 % (42.0-52.0); Hemoglobin 12.8 g/dL (14.1-18.0); Immature Granulocytes % 0.3 %; Mean Corpuscular HGB Conc 32.6 g/dL (31.8-35.4); Mean Corpuscular Hemoglobin 29.8 pg (27.0-31.2); Mean Corpuscular Volume 91.6 fl (80-94); Nucleated Red Blood Cells % 0 %; Platelet Count 488 K/mm3 (142-424); Red Blood Count 4.29 M/mm3 (4.60-6.20); Red Cell Distribution Width-SD 47.3 fL; White Blood Count 7.9 K/mm3 (4.8-10.8)
[2025-03-19 17:52] LABS: Anion Gap 10.0 mEq/L (5-15); Blood Urea Nitrogen 11 mg/dl (9-20); Calcium 9.4 mg/dl (8.4-10.2); Carbon Dioxide 28 mmol/L (22.0-30.0); Chloride 103 mmol/L (98-107); Creatinine Clearance Estimated 46 mL/min (50-200); Creatinine,Serum 0.90 mg/dl (0.66-1.25); Estimated Glomerular Filt Rate 80 ml/min (>60); GFR (African American) 97 ML/MIN (>60); Glucose 100 mg/dl (74-100); Potassium 4.0 mmoL/L (3.5-5.1); Sodium 137 mmol/L (136-145)
[2025-03-19 18:10] LABS: Microscopic, Urine URINE MICROSCOPIC (MICROSCOPIC)
--- NOTE | 2025-03-19 18:11 | PC.NURSE ---
new bowden placed at this time. urine sent to lab
[2025-03-19 18:16] LABS: Bilirubin,Urine Negative (Negative); Color,Urine YELLOW (Yellow); Glucose,Urine (UA) Negative (Negative); Ketones,Urine Negative (Negative); Leukocyte Esterase,Urine 3+ (Negative); PH,Urine 6.0 (5.0-8.5); Protein,Urine 2+ (Negative); Specific Gravity, Urine 1.020 (1.005-1.030); Urobilinogen,Urine 0.2 EU/dl (0.2)
[2025-03-19 18:40] LABS: Bacteria,Urine 1+ /lpf; RBC,Urine Occasional #/hpf (0-3)
--- NOTE | 2025-03-19 19:36 | PC.NURSE ---
5-lead ECG applied due to low heart rate. Warm blanket also provided to pt.
--- NOTE | 2025-03-19 20:44 | PC.NURSE ---
Clinic Pharmacy contacted and message left regarding new anticoagulant prescription, Eliguis. Case Management informed as well
[2025-03-19] MEDS: APIXABAN 5MG TABLET 10 MG PO (21:25)
--- NOTE | 2025-03-19 21:52 | HMH.EDGENADL ---
Discharge Plan Disposition Patient Disposition: Home, Self-Care Condition: Good Prescriptions Prescriptions: New Eliquis 5 mg tablet 5 mg PO BID Qty: 90 0RF Rx Instructions: Take 10 mg twice daily for 7 days, then 5 mg twice daily for 3 months sulfamethoxazole-trimethoprim 800-160 mg tablet 1 tab PO BID 7 Days Qty: 14 0RF No Action tamsulosin [Flomax] 0.4 mg capsule 0.4 mg PO DAILY 90 Days Qty: 90 1RF Rx Instructions: Take 1/2 hour after the same meal daily finasteride [Proscar] 5 mg tablet 5 mg PO DAILY 90 Days Qty: 90 3RF aspirin 81 mg tablet,chewable 81 mg PO BID metoprolol tartrate 25 mg tablet 25 mg PO DAILY lansoprazole 30 mg capsule,delayed release(DR/EC) 30 mg PO DAILY Rx Instructions: take one capsule every AM 30-60 minutes before meals levothyroxine [Synthroid] 25 mcg Tablet 25 mcg PO DAILYDM 30 Days Qty: 30 0RF Rx Instructions: one tablet every AM on an empty stomache hydrocodone-acetaminophen 5-325 mg tablet 1 tab PO DAILY PRN (Reason: Pain) donepezil 5 mg tablet 5 mg PO HS Patient Comments: TAKE 1 TABLET BY MOUTH AT BEDTIME Rx Instructions: take one tablet at bedtime cefdinir 300 mg capsule 300 mg PO Q12H Qty: 14 0RF Referrals Follow up/Referrals: Kendall West MD [Primary Care Provider, Medical] - See instructions Activity Restrictions/Add. Instructions Additional Instructions/Restrictions: Please present to clinic pharmacy in the morning to get the blood thinner medication. This medication is called Eliquis and you will take 10 mg twice daily for 7 days, then you will take 5 mg daily for the next 3 months. If you have any new or worsening symptoms please return. You should follow up with your primary care doctor this week so they are aware of your condition and may provide further monitoring. You also have a urinary tract infection which you should take Bactrim for the 7 days, twice daily. Clinical Impressions Clinical Impression: Deep vein thrombosis Qualifiers: DVT location: lower extremity Affected thrombotic vein of extremity: femoral Chronicity: acute Laterality: left Qualified Code(s): I82.412 - Acute embolism and thrombosis of left femoral vein Urinary tract infection Qualifiers: Urinary tract infection type: acute cystitis Hematuria presence: without hematuria Qualified Code(s): N30.00 - Acute cystitis without hematuria Print Language Print Language: Persian Discharge ED Provider: Zechariah Burdick Adult HPI General Chief complaint: Extremity Problem,Nontraumatic Stated complaint: Sent per Brett for Scan Time Seen by Provider: 03/19/25 17:07 Mode of Arrival: Wheelchair Source of Information: Patient and Relative Description of Symptoms (Recalled from ER Triage Doc. by RN): sent from primary care office for swelling of left leg and treatment resistant UTI. chronic bowden. on antibiotics. follows with dr zavala, waiting on prostate surgery. swelling of left leg started yesterday. concern for blood clot. History of Present Illness HPI narrative: This is an 84-year-old male patient, with past medical history of hypertension, hypothyroidism, myocardial infarction's, atrial fibrillation, dementia, and benign prostatic hyperplasia with urinary retention and indwelling Bowden catheter, who is presenting to the emergency department today for evaluation of left lower extremity swelling. Patient states that this edema has significantly worsened over the course of the last couple of days and is associated with significant pain. He has not noticed any erythema to the extremity. Patient tells me that he has also recently been treated twice for urinary tract infection but does not know the antibiotics he was placed on. He is experiencing recurrent suprapubic pain as well as significant dysuria. No hematuria. He is not having any fevers or flank pain. Related Data Home Medications ?Medication ?Instructions ?Recorded ?Confirmed aspirin 81 mg chewable tablet 81 mg PO BID 06/26/18 02/15/25 metoprolol tartrate 25 mg tablet 25 mg PO DAILY 06/26/18 02/15/25 lansoprazole 30 mg capsule,delayed 30 mg PO DAILY 02/02/22 02/15/25 release donepezil 5 mg tablet 5 mg PO HS 02/02/25 02/15/25 hydrocodone 5 mg-acetaminophen 325 1 tab PO DAILY PRN Pain 02/02/25 02/15/25 mg tablet Previous Rx's ?Medication ?Instructions ?Recorded levothyroxine 25 mcg tablet 25 mcg PO DAILYDM 30 days #30 tabs 08/24/24 (Synthroid) cefdinir 300 mg capsule 300 mg PO Q12H #14 caps 02/04/25 finasteride 5 mg tablet (Proscar) 5 mg PO DAILY 90 days #90 tabs 02/15/25 tamsulosin 0.4 mg capsule (Flomax) 0.4 mg PO DAILY 90 days #90 caps 02/15/25 apixaban 5 mg tablet (Eliquis) 5 mg PO BID #90 tabs 03/19/25 sulfamethoxazole 800 1 tab PO BID 7 days #14 tabs 03/19/25 mg-trimethoprim 160 mg tablet Allergies Allergy/AdvReac Type Severity Reaction Status Date / Time No Known Allergies Allergy Verified 02/15/25 10:14 [facility] Disclaimer: The information contained in this section may have been updated after the patient was seen, as this information can be updated by other users. Medical History Intertrochanteric fracture of left hip Kidney stones Seizures CAD (coronary artery disease) Atrial fibrillation Hypothyroid Heart attack Elevated PSA Hypertension Surgical History Closed fracture of left hip requiring operative repair with nonunion Family History Other Cancer No significant family history Social History Smoking Status: Never smoker alcohol intake: never substance use type: denies use current occupational status: retired Travel in the last 8 weeks?: None household members: spouse housing: house Have you lived/traveled outside [place] in past 30 days?: No Contact w/someone who lives/traveled outside US past 30 days?: No Exposure to someone with infectious disease in past 14 days?: No Do you have a fever (greater than 100.4 F or 38 C)?: No Have you tested positive for COVID-19?: No Exposed to someone with COVID-19 in past 14 days?: No Do you have a sore throat?: No Do you have a cough?: No Do you have any weakness?: No Do you have any diarrhea?: No Are you experiencing any unusual bleeding?: No Do you have any muscle aches/pain?: No Do you have any abdominal pain?: No Are you experiencing loss of taste or smell?: No Other Medical History Have you received the Flu Vaccine for this season: No Have you received the Pneumonia Vaccine: Yes ROS Obtained: Yes Systems reviewed as appropriate & no additional complaints except as documented Physical Exam General General appearance: other (See MDM) Respiratory Respiratory exam: Present other (See MDM) Cardiovascular Cardiovascular exam: Present other (See MDM) Neurological Exam Neurological exam: Present other (See MDM) Medical Decision Making Medical Records Medical records reviewed: Yes I reviewed the patient's medical records. Screening: Per USPSTF and CDC recommendations, given the prevalence of disease in our region, it is our hospital?s policy to screen for HIV and viral Hepatitis for all patients aged 18 and over and those with ongoing risk factors. Rony Inquiry Pt receiving controlled substance: No Rony was queried for this patient: No Vital Signs: 03/19/25 17:08 03/19/25 17:11 03/19/25 17:31 Temperature 98.3 F Temperature Source Oral Pulse Rate 56 L 55 L Pulse Rate [Right Brachial] 56 L Respiratory Rate 18 Blood Pressure 148/71 H 103/59 L Blood Pressure [Right Arm] 148/71 H Blood Pressure Mean Blood Pressure Mean [Right Arm] 96 Blood Pressure Source [Right Arm] Automatic Cuff 02 Sat by Pulse Oximetry 95 96 96 Oxygen Delivery Method Room Air Room Air 03/19/25 18:00 03/19/25 18:32 03/19/25 19:01 Temperature Temperature Source Pulse Rate 80 57 L 58 L Pulse Rate [Right Brachial] Respiratory Rate Blood Pressure 162/92 H 123/68 86/51 L Blood Pressure [Right Arm] Blood Pressure Mean Blood Pressure Mean [Right Arm] Blood Pressure Source [Right Arm] 02 Sat by Pulse Oximetry 98 100 97 Oxygen Delivery Method 03/19/25 19:31 03/19/25 20:00 03/19/25 20:30 Temperature Temperature Source Pulse Rate 75 57 L 54 L Pulse Rate [Right Brachial] Respiratory Rate 18 20 Blood Pressure 98/58 L 124/68 113/61 Blood Pressure [Right Arm] Blood Pressure Mean 86 78 Blood Pressure Mean [Right Arm] Blood Pressure Source [Right Arm] 02 Sat by Pulse Oximetry 96 97 95 Oxygen Delivery Method Room Air Room Air 03/19/25 21:00 03/19/25 22:24 Temperature 97.9 F Temperature Source Pulse Rate 56 L 59 L Pulse Rate [Right Brachial] Respiratory Rate 24 16 Blood Pressure 110/54 L 107/75 L Blood Pressure [Right Arm] Blood Pressure Mean Blood Pressure Mean [Right Arm] Blood Pressure Source [Right Arm] 02 Sat by Pulse Oximetry 96 Oxygen Delivery Method Room Air Lab Data Lab Results 03/19/25 17:16: WBC 7.9, RBC 4.29 L, Hgb 12.8 L, Hct 39.3 L, MCV 91.6, MCH 29.8, MCHC 32.6, RDW 13.9, Plt Count 488 H, MPV 9.3, Neut % (Auto) 62.3, Lymph % (Auto) 25.5, [place] % (Auto) 5.4, Eos % (Auto) 5.2, Baso % (Auto) 1.3, Neut # (Auto) 5.0, Lymph # (Auto) 2.0, [place] # (Auto) 0.4, Eos # (Auto) 0.4, Baso # (Auto) 0.1, Sodium 137, Potassium 4.0, Chloride 103, Carbon Dioxide 28, Anion Gap 10.0, BUN 11, Creatinine 0.90, Estimated Creat Clear 46, Estimated GFR 80, Est GFR ( Amer) 97, Glucose 100, Calcium 9.4 03/19/25 18:04: Urine Color Yellow, Urine Appearance Clear, Urine pH 6.0, Ur Specific [place] 1.020, Urine Protein 2+ A, Urine Glucose (UA) Negative, Urine Ketones Negative, Urine Blood 2+ A, Urine Nitrate Negative, Urine Bilirubin Negative, Urine Urobilinogen 0.2, Ur Leukocyte Esterase 3+ A, Urine RBC Occasional, Urine WBC 10-20, Ur Squamous Epith Cells None, Urine Bacteria 1+ 03/19/25 17:16 03/19/25 17:16 Orders (Tests/Meds): ED MEDICATIONS Discontinued Medications Generic Name Dose Route Start Last Admin Trade Name Tavoq PRN Reason Stop Dose Admin Apixaban 10 mg 03/19/25 21:07 03/19/25 21:25 Apixaban 5mg Tablet PO 03/19/25 21:08 10 mg ONCE ONE Administration Ceftriaxone Sodium 2 gm/ 100 mls @ 200 mls/hr 03/19/25 20:30 03/19/25 21:20 Sodium Chloride IV 03/29/25 20:29 Infused Q24H CAMMY Infusion ORDERS Category Date Time Status POCUS Point of Care (ER Only) Stat Exams 03/19/25 17:41 Completed BMP [Basic Metabolic Panel] Stat Lab 03/19/25 17:16 Completed CBC w/Auto Diff [Complete Blood Count Auto Diff] Stat Lab 03/19/25 17:16 Completed UA [Urinalysis and Microscopic] Stat Lab 03/19/25 18:04 Completed Urine Culture Stat Micro 03/19/25 18:04 Received Medical Decision Narrative: In summary this is an 84-year-old male patient who is presenting to the emergency department today for isolated left lower extremity edema that has significantly worsened over the last couple of days as well as persistent dysuria and suprapubic pain in the setting of a chronic indwelling Bowden and recurrent urinary tract infections. Patient's comorbidities include hypertension, hypothyroidism, coronary artery disease with myocardial infarctions, and benign prostatic hyperplasia with chronic urinary retention and chronic indwelling Bowden. On initial evaluation of the patient they were resting comfortably in no acute distress and nontoxic in appearance. They are hemodynamically stable, saturating well room air, and are neurologically intact. On physical examination the patient is breathing comfortably on room air. He is not tachycardic and is normotensive. He is not having any chest pain at all. His heart and lungs are clear to auscultation bilaterally. Abdomen is soft and nontender to palpation. He has profound edema of the left lower extremity extending from the groin all the way down through the ankle. Right lower extremity is unaffected. There is no clinical evidence of phlegmasia, as he has no limb cyanosis and no evidence of critical limb ischemia. Differential diagnosis includes deep vein thrombosis, less likely phlegmasia, and urinary tract infection. Workup was initiated with hematologic labs as well as a urinalysis. Workup also included a POCUS assessment for DVT of the left lower extremity. Labs personally inte we have covered him with IV Rocephin here in the emergency department for urinary tract infection rpreted by me demonstrate no leukocytosis, anemia that is improved from prior, no electrolyte derangement or acute kidney injury. Urinalysis shows 3+ leukocyte esterase and 10-20 white cells with 1+ bacteria. Additionally I did perform a bedside POCUS assessment and found that the patient has an extensive DVT burden extending throughout nearly the entirety of the femoral vein imaged from the groin to the distal thigh. I did not appreciate any thrombus present in the popliteal vein. Given these findings I treated the patient with 10 mg of Eliquis here in the emergency department. We sent Eliquis to the pharmacy for the patient to take 10 mg twice daily for the next 7 days followed by 5 mg twice daily for the next 3 months. He understands that he should follow-up with his primary care physician for further management and assessment of this. In addition to this the patient does have findings consistent with urinary tract infection. We will treat this with a 7-day course of Bactrim to take twice daily. Patient knowledges understanding of plan. He acknowledges importance of following up with primary care. At this time all questions been answered and all parties are agreeable with the decision to discharge home Critical Care Critical Care Time Critical Care Time: No
--- NOTE | 2025-03-21 08:44 | PC.NURSE ---
Preliminary urine culture reviewed by Dr. Rodrigues. No change in treatment at this time.
--- NOTE | 2025-03-23 12:06 | PC.NURSE ---
Mr Earnest reviewed urine culture. Asked me to speak with patient and see how he is feeling. If he is feeling worse, he needs to return to the ER and be admitted for IV antibiotics. If he is feeling the same or better, can switch antibiotics to Levaquin 750 mg PO daily x 7 days. Attempted to call patient, rosibel answered the phone, she took a message and will have him call me when he wakes up.
--- NOTE | 2025-03-23 12:19 | PC.NURSE ---
Spoke with patient, he states he is feeling pretty good Explained to patient that we need to switch him to different antibiotic. He would like called in to [facility]. Explained that he can stop other antibiotic and to start new one once he gets it picked up. Caregiver on speaker phone and also heard instructions and verbalized understanding. Called [facility], spoke with pharmacistJesus regarding new prescription.
== END 2025-03-19 22:26 | disposition home or self-care (01) ==
PROVIDERS: Emergency Provider Student in an Organized Health Care Education/Training Program; PCP Family Medicine
DX: N39.0 Urinary tract infection, site not specified (principal); I10 Essential (primary) hypertension
CPT/HCPCS: 51702; 80048; 81001; 85025; 87086; 87088; 87186; 96365; 99285; J0696